=== PATIENT | female | born 1960 | race Caucasian/White ===

== ENCOUNTER 2021-03-23 01:38 | Day surgery (SDC) | payer BC, SELFPAY ==
[2021-03-13 13:52] VITALS: BMI 49.6
[2021-03-23 08:20] VITALS: BP 127/69; PULSE 107; RESP 22; TEMP 36.3; O2SAT 100; BMI 49.0
--- NOTE | 2021-03-23 08:22 | WPDANESEPPF ---
Anes - Initial Pre Proc Eval Procedure: Operation Date: 03/23/21 09:00 Proposed Procedures p Colonoscopy - Tre Alvarado MD Date/Time: 03/23/21 08:22 Surgeon: Tre Alvarado MD Pre Op Diagnosis: Iron Deficiency Anemia Patient Data Age: 60 Gender: F Height: 1.63 m Weight: 131 kg Allergies Allergy/AdvReac Type Severity Reaction Status Date / Time shellfish derived Allergy Severe Swelling Verified 03/23/21 08:18 of Lip/Tongue/Throat Penicillins Allergy Intermediate Hives Verified 03/23/21 08:18 SHELL FISH Allergy Severe SWELLING, Uncoded 03/23/21 08:18 RASH Shrimp Allergy Severe SWELLING, Uncoded 03/23/21 08:18 RASH Contrast Media Allergy Intermediate Rash Uncoded 03/23/21 08:18 Home Medications Medication Instructions Recorded Confirmed Type amitriptyline 100 mg tablet 200 mg PO QHS tablet 03/07/21 03/23/21 History lurasidone 40 mg tablet 40 mg PO QHS tablet 03/07/21 03/23/21 History metoprolol succinate 25 mg 25 mg PO BID 03/07/21 03/23/21 History tablet,extended release 24 hr pramipexole 0.75 mg tablet 0.75 mg PO QHS 03/07/21 03/23/21 History tramadol 50 mg tablet 50 mg PO Q6H PRN 03/07/21 03/23/21 History ferrous sulfate [FeroSul] 1 mg PO BID 03/13/21 03/23/21 History Patient hx anesthesia problems: none Family hx anesthesia problems: none PMFSH Past Medical History Medical History (Updated 03/23/21 @ 08:23 by Timmy Engle MD) Anemia Anxiety Arthritis Bipolar 1 disorder, depressed Morbid obesity Family History Family History Father Family history of Alzheimer's disease Other Family history of Parkinson's disease Family history of arthritis Family history of malignant neoplasm Family history of mental disorder Social History Social History Smoking packs per day: 0.5 Smoking cigarettes per day: 10.0 Years smoked: 13 Smoking pack-years: 6.50 Smoking status: Former smoker Tobacco type: cigarettes Smoking end date: 08/26/91 Alcohol intake: current Substance use: never Substance use type: does not use Spiritual care concerns: No Anes - Eval Final PreProcedure Day of Procedure 03/23/21 08:22 Patient weight: morbidly obese Heart: regular rate and rhythm Lungs: clear to auscultation Airway: Mallampati scale class III Neurological: alert and oriented Last oral intake: >/= 8 hours ASA classification: III Emergent: no Anesthetic plan: proceed Anesthesia type and monitoring: general GIVS and standard monitoring Informed Consent: The patient's anesthetic plan and its attendant risks and benefits were discussed with the patient/family/POA. Questions were solicited and answers provided to the satisfaction of the patient/family/POA.
[2021-03-23] MEDS: LACTATED RINGERS 1,000 ML 30 ML IV CONT (08:26)
[2021-03-23 10:09] VITALS: BP 83/54; PULSE 79; RESP 16; O2SAT 99
[2021-03-23 10:19] VITALS: BP 96/49; PULSE 78; RESP 17; O2SAT 100
[2021-03-23 10:29] VITALS: BP 111/55; PULSE 76; RESP 18; O2SAT 100
--- NOTE | 2021-03-23 10:34 | PM.HPGS ---
History of Present Illness History of Present Illness Consent: Risks, benefits, and alternatives have been discussed and questions answered. Patient agrees to proceed with procedure. Chief complaint: Iron Deficiency Anemia Narrative: Macy Vera is a 60 year old female who has been found to have persistent iron deficiency anemia. She does have a history of polyps also Review of Systems Review of Systems: All systems reviewed & are unremarkable except as noted in HPI and below PMFSH Past Medical History Medical History Anemia Anxiety Arthritis Bipolar 1 disorder, depressed Morbid obesity Family History Family History Father Family history of Alzheimer's disease Other Family history of Parkinson's disease Family history of arthritis Family history of malignant neoplasm Family history of mental disorder Social History Social History Smoking packs per day: 0.5 Smoking cigarettes per day: 10.0 Years smoked: 13 Smoking pack-years: 6.50 Smoking status: Former smoker Tobacco type: cigarettes Smoking end date: 08/26/91 Alcohol intake: current Substance use: never Substance use type: does not use Spiritual care concerns: No Meds Home Medications and Allergies Home Medications Medication Instructions Recorded Confirmed Type amitriptyline 100 mg tablet 200 mg PO QHS tablet 03/07/21 03/23/21 History lurasidone 40 mg tablet 40 mg PO QHS tablet 03/07/21 03/23/21 History metoprolol succinate 25 mg 25 mg PO BID 03/07/21 03/23/21 History tablet,extended release 24 hr pramipexole 0.75 mg tablet 0.75 mg PO QHS 03/07/21 03/23/21 History tramadol 50 mg tablet 50 mg PO Q6H PRN 03/07/21 03/23/21 History ferrous sulfate [FeroSul] 1 mg PO BID 03/13/21 03/23/21 History Allergies Allergy/AdvReac Type Severity Reaction Status Date / Time shellfish derived Allergy Severe Swelling Verified 03/23/21 08:18 of Lip/Tongue/Throat Penicillins Allergy Intermediate Hives Verified 03/23/21 08:18 SHELL FISH Allergy Severe SWELLING, Uncoded 03/23/21 08:18 RASH Shrimp Allergy Severe SWELLING, Uncoded 03/23/21 08:18 RASH Contrast Media Allergy Intermediate Rash Uncoded 03/23/21 08:18 Vital Signs Vital Signs - 24 hr 03/23/21 08:20 03/23/21 10:09 03/23/21 10:19 Temperature 36.3 C L Pulse Rate 107 H 79 78 Respiratory Rate 22 H 16 17 Blood Pressure 127/69 83/54 L 96/49 L Pulse Oximetry 100 99 100 03/23/21 10:29 Temperature Pulse Rate 76 Respiratory Rate 18 Blood Pressure 111/55 L Pulse Oximetry 100 Exam Const: General: alert Orientation/consciousness: patient oriented x3 Resp: Auscultation: clear to auscultation bilaterally Cardio: Rhythm: regular rhythm GI: GI Palp: Yes Soft to palpation and No Tenderness to palpation present (GI) Neuro: General: patient oriented x3 Assessment and Plan Assessment and plan (1) Iron deficiency anemia: Code(s): D50.9 - Iron deficiency anemia, unspecified Status: Acute Assessment and Plan: Colonoscopy with possible biopsy or polypectomy or cautery or injection of substances.
== END 2021-03-23 10:37 | disposition home or self-care (01) ==
PROVIDERS: PCP Family Medicine; Visit Provider Internal Medicine Gastroenterology
PROC: 0DJD8ZZ Inspection of Lower Intestinal Tract, Via Natural or Artificial Opening Endoscopic (ICD-10-PCS; CPT 45378; principal; 2021-03-23 09:00)
DX: D50.9 Iron deficiency anemia, unspecified (principal); K57.30 Diverticulosis of large intestine without perforation or abscess without bleeding; Z86.010 Personal history of colon polyps; F41.9 Anxiety disorder, unspecified; M19.90 Unspecified osteoarthritis, unspecified site; F31.9 Bipolar disorder, unspecified; E66.01 Morbid (severe) obesity due to excess calories; Z68.42 Body mass index [BMI] 45.0-49.9, adult; Z87.891 Personal history of nicotine dependence
CPT/HCPCS: 45378; J7120

== ENCOUNTER 2021-12-04 13:28 | Outpatient (CLI) | payer BC, SELFPAY ==
--- NOTE | 2021-12-04 13:30 | ECG_ITS ---
Measurements Intervals [place] Rate: 90 P: 43 WA: 156 QRS: -3 QRSD: 97 T: 38 QT: 362 QTc: 443 Interpretive Statements SINUS RHYTHM NONSPECIFIC ST AND T CHANGES NO PREVIOUS ECG AVAILABLE FOR COMPARISON Electronically Signed On 12-04-2021 15:47:02 CDT by Chapin Laboy M.D.
== END 2021-12-04 13:29 | disposition home or self-care (01) ==
LOC: ANHSURGERY 13:30
PROVIDERS: PCP Family Medicine; Visit Provider Orthopaedic Surgery
DX: Z86.79 Personal history of other diseases of the circulatory system (principal); Z01.818 Encounter for other preprocedural examination
CPT/HCPCS: 93005

== ENCOUNTER 2021-12-07 01:24 | Day surgery (SDC) | payer BC, SELFPAY ==
--- NOTE | 2021-12-04 10:59 | PC.NURSE ---
Report to the Outpatient Waiting Room, entrance under the green pavilion located off [facility], at time _0800 on date _12/07/21 . OR Time: _1000 . - You and your visitor will be asked a series of questions to screen for COVID 19 for your protection. - A mask is required within the hospital. Preoperative COVID Testing Requirements: No COVID Test needed if: (proof is required; if not received patient will have Rapid Test prior to entry) - Patient has received COVID Vaccine at least 14 days prior to procedure date or - Patient has positive COVID test result within last 90 days of surgery date. COVID Test needed if above criteria is not met If not COVID vaccinated a COVID test must be conducted within 72 hours of surgery and patient is asked to isolate self from time of testing until procedure. You will go to the [facility] for your COVID testing. The [employer] [facility] site is located at the corner of [address] [facility]. You will only be called if COVID results are positive and your surgeon may reschedule your elective surgery date. Patients may have clear liquids (water, carbonated beverages, clear teas, apple juice) until 3 hours prior to surgery with a maximum of 20 ounces. - No food from midnight until time of surgery - Infants may have breast milk until 4 hours before surgery, infant formula 6 hours prior to surgery. - Children will be allowed to drink immediately following surgery. If applicable, please bring a bottle or sippy cup to assist with drinking. Juice, water, soda, and popsicles are readily available. For infants on formula, please bring formula the day of surgery. Pacifiers are allowed. Take the following medications with a SIP of water the morning of surgery: _METOPROLOL Medications to discontinue per physician NONE Date to take last dose Please no make-up, nail citizen of the [place], hairspray, perfume, deodorant, or body powder the day of surgery. No jewelry (including any body piercings) or valuables the day of surgery, leave them at home. Please take a shower or bath the night before, or the morning of, surgery with an antibacterial soap. Wear comfortable, loose fitting clothing. Children are encouraged to wear pajamas. - Jewelry must be removed prior to entering the operating room. Rings and piercings that are not removed may be cut off. - The hospital will not accept responsibility for valuables. - Please leave all valuables, including medications, at home the day of surgery. If you are going home after surgery, a licensed local bulk driver must drive you home. - NO public transportation without another adult. - We recommend that an adult stay with you for 24 hours following discharge. - We also recommend that you do not drive, make important decision, drink alcoholic beverages, or take any drugs that were not prescribed by your health care provider for at least 24 hours after your discharge time. For Pediatric surgeries, we recommend two adults accompany the child home (only one inside the building at this time). One visitor will be allowed to accompany the patient into the hospital. Patients visitor will be instructed to remain with patient at all times or leave the building. We will allow the visitor to come back to the postoperative area when patient is ready. Follow any additional instructions given to you from your surgeon. Telephone instructions given to _PATIENT and asked if any additional questions and then verbalized understanding. Patient advised to call surgeon office or pre surgery nurse liaison [phone] if any additional questions.
[2021-12-04 11:05] VITALS: BMI 49.4
--- NOTE | 2021-12-06 14:32 | WPDANESEPPF ---
Anes - Initial Pre Proc Eval Procedure: Operation Date: 12/07/21 10:00 Proposed Procedures p Left Second, Third, Fourth Hammer Toe Correction - Jared Roque MD Date/Time: 12/06/21 14:32 Surgeon: Jared Roque MD Pre Op Diagnosis: left 2nd,3rd,4th hammer toes Patient Data Age: 60 Gender: F Height: 1.63 m Weight: 130.65 kg Allergies Allergy/AdvReac Type Severity Reaction Status Date / Time shellfish derived Allergy Severe Swelling Verified 12/07/21 07:59 of Lip/Tongue/Throat Penicillins Allergy Intermediate Hives Verified 12/07/21 07:59 Sulfa (Sulfonamide Allergy Unknown Rash Verified 12/07/21 07:59 Antibiotics) Shrimp Allergy Severe SWELLING, Uncoded 12/07/21 07:59 RASH Contrast Media Allergy Intermediate Rash Uncoded 12/07/21 07:59 Home Medications Medication Instructions Recorded Confirmed Type amitriptyline 100 mg tablet 200 mg PO QHS tablet 03/07/21 12/07/21 History lurasidone 40 mg tablet 40 mg PO QHS tablet 03/07/21 12/07/21 History metoprolol succinate 25 mg 25 mg PO BID 03/07/21 12/07/21 History tablet,extended release 24 hr pramipexole 0.75 mg tablet 0.75 mg PO QHS 03/07/21 12/07/21 History tramadol 50 mg tablet 50 mg PO Q6H PRN 03/07/21 12/07/21 History folic acid 1 mg PO DAILY 12/04/21 12/07/21 History Patient hx anesthesia problems: none Family hx anesthesia problems: none Results Review: All pre-operative results and documents have been reviewed as part of the pre-operative evaluation. [facility] Past Medical History Medical History (Updated 12/06/21 @ 14:33 by Hermes Carlos DO) Acquired hammertoe of left foot Anemia Anxiety Arthritis Bipolar 1 disorder, depressed Depression Hx of supraventricular tachycardia Morbid obesity PONV (postoperative nausea and vomiting) Wears glasses Surgical History Surgical History (Updated 12/06/21 @ 14:33 by Hermes Carlos DO) H/O foot surgery Left 2nd hammertoe correction 06/23/15 Dr. Roque H/O hernia repair umbilical hernia repair History of cholecystectomy History of gastric bypass History of hip surgery Left TAISHA 2018 Dr. Escoto History of intestinal surgery bowel obstruction x2 History of knee surgery Right TKA 2019 Dr. Escoto Left TKA Poly replacement 2020 Dr. Escoto Family History Family History (Updated 11/17/21 @ 14:30 by Evelyn Palmer) Father Family history of Alzheimer's disease Other Cerebrovascular accident Depression Family history of Parkinson's disease Family history of arthritis Family history of malignant neoplasm Family history of mental disorder Gallbladder cancer Social History Social History (Updated 11/17/21 @ 14:35 by Evelyn Palmer) Smoking packs per day: 0.5 Smoking cigarettes per day: 10.0 Years smoked: 13 Smoking pack-years: 6.50 Smoking status: Former smoker Tobacco type: cigarettes Smoking end date: 08/26/92 Alcohol intake: current Substance use: never Substance use type: does not use Living arrangements: with family Gender identity (if verbalized by the patient): Female Spiritual care concerns: No Anes - Eval Final PreProcedure Day of Procedure 12/06/21 14:32 Patient weight: morbidly obese Heart: regular rate and rhythm Lungs: clear to auscultation and normal air movement Airway: Mallampati scale class III Neurological: alert and oriented Last oral intake: >/= 8 hours ASA classification: III Emergent: no Anesthetic plan: proceed Anesthesia type and monitoring: general LMA and standard monitoring Results Review: All pre-operative results and documents have been reviewed as part of the pre-operative evaluation. Informed Consent: The patient's anesthetic plan and its attendant risks and benefits were discussed with the patient/family/POA. Questions were solicited and answers provided to the satisfaction of the patient/family/POA.
--- NOTE | ~2021-12-07 | XR_ITS ---
EXAMINATION: XR surgery orthopedic EXAM DATE: 12/07/2021 10:57 INDICATION: Left foot hammertoe correction. TECHNIQUE: Fluoroscopy used during left foot surgery performed by Dr. Jared Roque MD. Radiolo gist was not present for the imaging or procedure. Total fluoroscopic time of 16 seconds. The DAP f or this procedure was 1.3 mGym2. A total of 4 images sent to PACS from the exam. FINDINGS: Orthopedic surgical pins extending along the shafts of the left 2nd, 3rd, 4th phalanges. Correlate with procedure note. IMPRESSION: Fluoroscopy used during hammertoe correction. Reviewed, dictated and finalized at location B.
--- NOTE | 2021-12-07 07:20 | WPDHPUPDATE1 ---
History and Physical Update Update Date/Time: 12/07/21 07:20 History and Physical has been reviewed, including an updated exam of the patient. There are NO changes in the patient's condition. Risks, benefits, and alternatives have been discussed and questions answered. Patient agrees to proceed with procedure.
[2021-12-07 08:03] VITALS: BP 141/83; PULSE 93; RESP 18; TEMP 36.4; O2SAT 100
[2021-12-07] MEDS: LACTATED RINGERS 1,000 ML 30 ML IV CONT ×2 (08:10→11:06)
[2021-12-07] MEDS: ACETAMINOPHEN 500 MG TABLET 1000 MG PO (08:19)
[2021-12-07] MEDS: KETOROLAC 15 MG/ML VIAL (*BKC) IV PUSH (08:22)
[2021-12-07] MEDS: ceFAZolin 3 GM/D5W 100 ML 100 ML IVPB (09:52)
[2021-12-07] MEDS: BUPIVACAINE HCL 0.5% PF 30 ML VIAL INFILTRATE (10:14)
[2021-12-07 11:05] VITALS: BP 111/78; PULSE 89; RESP 15; O2SAT 95
--- NOTE | 2021-12-07 11:13 | W.PM.PROC2 ---
Procedure Note - Detailed Date of Procedure 12/07/21 Pre-op Diagnosis left 2nd,3rd,4th hammer toes Post-op Diagnosis Same Procedure Performed Left 2nd, 3rd, 4th hammertoe correction with interphalangeal arthrodesis Surgeon Jared Roque MD Community Affairs Director 1st facility assistant Anesthesia General Indications 60-year-old woman with left foot 2nd, 3rd and 4th toe deformity. This causes pressure on the dorsum of the toe and rubbing with shoe wear. Patient is at a pre ulcerative state and risk of infection. She has failed conservative treatment taping and padding and accommodative shoes. Presents for operative treatment. Description of Procedure Patient identified in the preoperative holding. Informed consent given. Operative extremity marked. Patient received intravenous antibiotics. Patient brought to the operating room where underwent general anesthetic by anesthesia team. Positioned supine on operating room table. Time-out performed confirming the patient, site of the surgery and the plan. Left foot prepped draped usual sterile surgical fashion using a ChloraPrep skin solution. Foot and Ankle exsanguinated and calf tourniquet inflated to 225 mmHg. Second toe elliptical incision made with a 15 blade knife the distal interphalangeal joint. Dorsal capsulotomy performed. Ligaments released and the bone resected with a bone cutter rongeur. Irrigation followed by reduction and fixation with 0.062 in K-wire. Image intensification confirmed alignment. Third toe elliptical incision made with a 15 blade knife over the proximal interphalangeal joint. Dorsal capsulotomy performed. Ligaments released and the bone resected with a bone cutter and rongeur. Irrigation followed by reduction and fixation with 0.062 in K-wire. Image intensification confirmed alignment. Fourth toe elliptical incision made with a 15 blade knife over the proximal interphalangeal joint. Dorsal capsulotomy performed. Ligaments released and the bone resected with a bone cutter and rongeur. Irrigation followed by reduction and fixation with 0.062 in K-wire. Image intensification confirmed alignment. Local anesthetic with 0.5% Marcaine plain. Sterile dressing applied. The patient was then woken from anesthesia, extubated and taken to the recovery room in stable condition. All sponge, needle, instrument counts were correct at the end of the case. Implants 0.062 in K-wire x3 Estimated Blood Loss 5 Tourniquet Time 52 Drains No Packing No Pathology None sent Complications None Condition Stable Disposition PACU
[2021-12-07 11:20] VITALS: BP 114/82; PULSE 94; RESP 17; O2SAT 100
[2021-12-07 11:38] VITALS: BP 115/80; PULSE 90; RESP 17; O2SAT 100
[2021-12-07 11:40] VITALS: BP 123/75; PULSE 94; RESP 17
[2021-12-07 12:10] VITALS: BP 129/79; PULSE 90; RESP 16
--- NOTE | 2021-12-07 12:50 | SUR.PHASEII ---
pt meets discharge instructions and is waiting for a post op boot. the some that came was too small and I called back for a bigger one
== END 2021-12-07 13:19 | disposition home or self-care (01) ==
PROVIDERS: PCP Family Medicine; Visit Provider Orthopaedic Surgery
PROC: (CPT 28285; principal; 2021-12-07 10:00)
DX: M20.42 Other hammer toe(s) (acquired), left foot (principal); F31.9 Bipolar disorder, unspecified; F41.9 Anxiety disorder, unspecified; E66.01 Morbid (severe) obesity due to excess calories; Z68.43 Body mass index [BMI] 50.0-59.9, adult; Z98.84 Bariatric surgery status; Z87.891 Personal history of nicotine dependence
CPT/HCPCS: 28285 ×3; A9270; C1713; J0330; J0690; J1100; J1885; J2250; J2405; J2704; J3010; J7120

== ENCOUNTER 2024-11-18 08:15 | Outpatient (CLI) | payer BC, SELFPAY ==
--- NOTE | 2024-11-18 08:23 | ECG_ITS ---
Test Date: 2024-11-18 08:31:51 Measurements Intervals [place] Rate: 83 P: 39 VA: 168 QRS: -10 QRSD: 104 T: 13 QT: 386 QTc: 454 Interpretive Statements SINUS RHYTHM NONSPECIFIC ST AND T WAVE ABNORMALITY No previous ECG available for comparison Electronically Signed On 11-18-2024 12:59:27 CDT by Claribel Davis M.D.
--- OUTSIDE RECORDS SUMMARY | 2024-11-18 08:27 | XMS_ITS | Encounter Summary ---
Author Organization [facility] Care Team Providers Care Postal Transportation Clerk Name Role Phone Williams Escoto MD Primary Care Provider Williams Escoto MD Primary Care Provider Kaushik Montemayor MD Primary Care Provider [phone] Vance Jack MD Unavailable [phone] Geeta Aparicio Unavailable [phone] Encounter Details Date Type Department Care Team (Latest Contact Info) Description 11/21/2017 Orders Only [facility] Provider, MD Florentin [address] [place] [id number] Social History Tobacco Use Types Packs/Day Years Used Date Smoking Tobacco: Never Assessed Comments Unknown Sex and Gender Information Value Date Recorded Sex Assigned at Not on file Legal 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 us Historical Provider Final Res ult documented in this encounter Visit Diagnoses Not on filedocumented in this encounter Care Teams Postal Transportation Clerk Relationship Specialty Start Date End Date Williams Escoto MD PCP - General 10/27/18 12/22/18 Williams Escoto MD PCP - General 10/03/18 10/26/18 [place] [id number] [place] [address] [id number] PCP - General Family Practice 12/23/18 [place] [id number] [phone] Referring Physician Internal Medicine 04/02/22 [place] [id number] [employer] [address] [place] [address] [id number] Physician Wedding Cake Designer Orthopedic Surgery 04/20/22 documented as of this encounter
--- OUTSIDE RECORDS SUMMARY | 2024-11-18 08:27 | XMS_ITS | Clinical Summary ---
Author Organization [facility] at the Medical Office Building Address [address] [place] [address] Care Team Providers Care Receiver Name Role Phone Kaushik Montemayor MD Primary Care Provider [phone] Vance Jack MD Unavailable [phone] Geeta Aparicio Unavailable [phone] Allergies Active Allergy Reactions Criticality Noted Date Comments Iodinated Contrast Media Hives,Rash Medium 12/18/2018 Rash Iodine Unknown,Hives,Rash Medium 12/18/2018 IVP dye Penicillins Rash Medium 08/23/2015 Rash Shellfish Hives,Rash High 08/23/2015 Shellfish Containing Products Hives Medium 2014 Sulfa (Sulfonamide Antibiotics) Rash High / Medications amitriptyline (ELAVIL) 100 mg tablet Take 2 tablets (200 mg total) by mouth nightly 0 11/19/19 19 Active LATUDA 40 mg tablet Take 1 tablet (40 mg total) by mouth nightly 0 10/01/19 19 Active metoprolol (LOPRESSOR) 25 mg tablet Take 1 tablet (25 mg total) by mouth 2 (two) times a day 0 12/06/19 19 Active pramipexole (MIRAPEX) 0.75 mg tablet Take 1 tablet (0.75 mg total) by mouth nightly 0 09/19/19 19 Active BD LUER-YVETTE SYRINGE 3 mL 23 x 1 syringe USE TO INJECT B12 DIRECTED BY THE PHYSICIAN. 0 10/09/19 19 Active folic acid (FOLVITE) 1 mg tablet Take 1 tablet (1 mg total) by mouth daily 07/16/20 21 Active cyanocobalamin (Vitamin B-12) 1,000 mcg/mL injection 07/24/20 21 Active ferrous sulfate 325 mg (65 mg of elemental iron) tabletIndications: Iron Deficiency Anemia Take 1 tablet (325 mg total) by mouth 2 (two) times a day Active UNABLE TO FIND Take 1 each by mouth daily PREVAGEN CHEWABLES Active apixaban (ELIQUIS) 2.5 mg tabletIndications: VTE Prophylaxis Take 1 tablet (2.5 mg total) by mouth 2 (two) times a day for 14 days 28 tablet 04/20/20 22 Active HYDROcodone-acetam inophen (NORCO) 5-325 mg per tabletIndications: Pain Take 1-2 tablets by mouth every 4 (four) hours as needed for pain 40 tablet 04/20/20 22 Active Additional Information Patient not taking.Reported on 02/08/2023 ALPRAZolam (XANAX) 0.25 mg tablet 04/12/20 22 Active cephalexin (KEFLEX) 500 mg capsule 03/02/20 22 Active ciprofloxacin (CIPRO) 500 mg tablet 04/12/20 22 Active ondansetron ODT (ZOFRAN-ODT) 8 mg disintegrating tablet DISSOLVE 1 TABLET ON THE TONGUE EVERY 8 HOURS NEEDED FOR NAUSEA OR VOMITING 12/08/19 22 Active Active Problems Problem Noted Date Diagnosed Date S/P total right hip arthroplasty 04/19/2022 Primary osteoarthritis of right hip 04/02/2022 Overview (04/02/2022): Added automatically from request for surgery [id number] Rotator cuff impingement syndrome of right shoul jack 05/15/2021 Trochanteric bursitis of right hip 08/08/2020 Presence of right artificial knee joint 08/08/20 Status post total left knee replacement 08/13/20 19 Surgical History Surgery Date Site/Laterality Comments ABCESS DRAINAGE 10/24/2013 - 11/23/2013 Left Left hip I&D TOTAL KNEE ARTHROPLASTY Bilateral and revision to left TOTAL HIP ARTHROPLASTY Left FINGER SURGERY Left EXC. STM left long finger SECTION x 2 FOOT SURGERY Left hammertoe 2021 GANGLION CYST EXCISION Left x 2 CARPAL TUNNEL RELEASE Left HERNIA REPAIR 2014 w/mesh ABDOMINAL SURGERY bowel obst surgery x 3 GASTRIC BYPASS 2005 TOTAL HIP ARTHROPLASTY 04/19/2022 Right Medical History Medical History Date Comments Depression Hypertension Arthritis Osteoarthritis Obesity MORBID PONV (postoperative nausea and vomiting) No family history of adverse response to anesthesia History of anemia Personal history of other me dical treatment history iron transfusions; h istory of several blood transfusions Bipolar disorder (HCC) RLS (restless legs syndrome) Wears contact lenses Wears glasses History of shingles multiple estrella es; last episode 2018 Family History Medical History Relation Name Comments No Known Problems Father No Known Problems Mother Depression Neg Hx Hypertension Neg Hx Relation Name Status Comments Father Mother Social History Tobacco Use Types Packs/Day Years Used Date Smoking Tobacco: Former Cigarettes 0.5 13 1 9 - 1991 Smokeless Tobacco: Never Alcohol Use Standard Drinks/Week Comments Yes 0 (1 standard drink = 0.6 oz pur e alcohol) Socially Social Connection and Isolat ion Panel [NHANES] Answer Date Recorded In a typical week, how many times do you talk on the phone with family, friends, or neighbors? More than three times a week 04/20/2022 How often do you get togethe r with friends or relatives? More than three times a week 04/20/2022 How often do you attend chur ch or orthodox services? Never 04/20/2022 Do you belong to any clubs o r organizations such as presybeterian groups, unions, fraternal or athletic groups, or school groups? No 04/20/2022 How often do you attend meet ings of the clubs or organizations you belong to? Never 04/20/2022 Are you , , di vorced, , never , or living with a partner? 04/20/2022 AUDIT-C Answer Date Recorded Q1: How often do you have a drink containing alc ohol? Monthly or less 04/05/2022 Q2: How many drinks containi ng alcohol do you have on a typical day when you are drinking? 1 or 2 04/05/2022 Q3: How often do you have si x or more drinks on one occasion? Never 04/05/2022 Overall Financial Resource Strain (CARDIA) Answe r Date Recorded How hard is it for you to pa y for the very basics like food, housing, medical care, and heating? Not hard at all 04/20/2022 PRAPARE - Transportation Answer Date Re corded In the past 12 months, has l ack of transportation kept you from medical appointments or from getting medications? No 03/27 In the past 12 months, has l ack of transportation kept you from meetings, work, or from getting things needed for daily living? 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 Gender Identity Not on file Sexual Orientation Not on file Occupation Industry Job Start Date Job End Date Retired Not on file Not on file Not on file Obstetrics History Last Filed Vital Signs Vital Sign Reading Time Taken Comments Blood Pressure 102/68 04/21/2022 7:00 AM CDT Pulse 98 04/21/2022 7:00 AM CDT Temperature 36.6 C (97.8 F) 04/21/2022 7:00 AM CDT Respiratory Rate 16 04/21/2022 7:00 AM CDT Oxygen Saturation 98% 04/21/2022 7:00 AM CDT Inhaled Oxygen Concentration - - Weight 124.7 kg (275 lb) 02/08/2023 10:18 AM CDT Height 165.1 cm (5' 5 ) 02/08/2023 10:18 AM CDT Body Mass Index 45.76 02/08/2023 10:18 AM CDT Plan of Treatment Health Maintenance Due Date Last Done Comments Breast Cancer Screening-Mammogram 1961 Cervical Cancer Screening 1961 Colon Cancer Screening-Colonoscopy 1961 Depression Screening 1961 Hepatitis C Screening 1961 Hepatitis B Screening 12/20/1979 Regular Well Visit/Exam 18-64 12/20/1979 Zoster Vaccine (1 of 2) 12/20/2011 Covid-19 Vaccine ( season) 2024 06/21/2021, 10/27/2020, 09/29/2020 Influenza Vaccine (#1) 2024 , 06/05/2021, 05/26/2019, Additional history exists DTaP/Tdap/Td Vaccine (2 - Td or Tdap) 06/15/2032 06/15/2022 Pneumococcal vaccine <65 Aged Out No longer eligible based on patient's age to complete this topic Medical Devices Implanted Type Area Office Supervisor Device Identifier Shelf Expiration Date Model / Serial / Lot Knee Components Bilater al: Knee Hip Left: Hip [employer] G7 52mm Limit Hole Hip E Hemisphere Shell Acetabular Pps [id number] - [id number] Implanted:Qty: 1 on 04/19/2022 by Williams Escoto MD at [facility] Right: Hip [employer] [id number] 02/22/2032 [id number] / / [id number] [employer] Trilogy 6.5mm 30mm Self Tap Acetabular Cortical Screw Bone [id number] - [id number] Implanted:Qty: 1 on 04/19/2022 by Williams Escoto MD at [facility] Right: Hip [employer] [id number] 03/15/2032 [id number] / / [id number] [employer] Echo Bi-Metric 9mm 125mm Noncollar Reduce Proximal Profile Press [id number] - [id number] Implanted:Qty: 1 on 04/19/2022 by Williams Escoto MD at [facility] Right: Hip [employer] [id number] 08/03/2029 [id number] / / [id number] [employer] Liner Hip G7 Longevity High Wall 32mm E [id number] - [id number] Implanted:Qty: 1 on 04/19/2022 by Williams Escoto MD at [facility] Right: Hip [employer] [id number] 07/25/[id number] / / [id number] [employer] G7 32mm Type 1 Modular Hip Acetabular +3mm Offset Head Femoral 650-1161 - [id number] Implanted:Qty: 1 on 04/19/2022 by Williams Escoto MD at [facility] Right: Hip [employer] 06/08/2031 [id number] / / [id number] [place] Sub[place] Plan / Payer (Ef fective 2019-Present) Name:Carmen Cobosuermey Bernal Relation to Subscriber:Spouse Name:RIANNA COBOS Date of :1967 (Home) Address: [place] [address] Payer ID:[id number] (NAIC) Group ID:[id number] Type:[id number] OTHER Address: [address] [place] [id number] Advance Directives For more information, please contact: [phone] * Full Code (Latest Code Status on File) Date Activated Date Inactivated Comments 04/19/2022 4:00 PM 04/21/2022 4:29 PM Care Teams Receiver Relationship Specialty Start [place] [address] [place] [address] PCP - General Family Practice 12/23/18 [place] [address] [facility] [address] [place] [address] Referring Physician Internal Medicine 04/02/22 [place] [address] [address] [address] Physician Environmental Studies Department Chair Orthopedic Surgery 04/20/22
--- OUTSIDE RECORDS SUMMARY | 2024-11-18 08:27 | XMS_ITS | Referral Summary ---
Author Organization [facility] at the Medical Office Building Address [address] [place] [address] Care Team Providers Care Web Design Instructor Name Role Phone Kaushik Montemayor MD Primary Care Provider [phone] Vance Jack MD Unavailable [phone] Geeta Aparicio Unavailable [phone] Allergies Active Allergy Reactions Criticality Noted Date [...] (04/02/2022): Added automatically from request for surgery [id number] Rotator cuff impingement syndrome of right shoul jack 05/15/2021 Trochanteric bursitis of right hip 08/08/2020 Presence of right artificial knee joint 08/08/20 Status post total left knee replacement 08/13/20 19 Social History Tobacco Use Types Packs/Day Years [...] often do you attend chur ch or sabianism services? 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 Gender Identity Not on file Sexual Orientation Not on file Occupation Industry Job Start Date Job End Date Retired Not on file Not on file Not on file Last Filed Vital Signs Vital Sign Reading [...] 02/08/2023 10:18 AM CDT Plan of Treatment Not on file Medical Devices Implanted Type Area Printing Sales Representative Device Identifier Shelf Expiration Date Model / Serial / Lot Knee Components Bilater al: Knee Hip Left: Hip [employer] G7 52mm Limit Hole Hip E Hemisphere Shell Acetabular Pps [id number] - [id number] Implanted:Qty: 1 on 04/19/2022 by Williams Escoto MD at [facility] Right: Hip [employer] [id number] 02/22/2032 [id number] / / [id number] [employer] Trilogy 6.5mm 30mm Self Tap Acetabular Cortical Screw Bone [id number] - [id number] Implanted:Qty: 1 on 04/19/2022 by Williams Escoto MD at [facility] Right: Hip [employer] [id number] 03/15/2032 [id number] / / [id number] [employer] Echo Bi-Metric 9mm 125mm Noncollar Reduce Proximal Profile Press [id number] - [id number] Implanted:Qty: 1 on 04/19/2022 by Williams Escoto MD at [facility] Right: Hip [employer] [id number] 08/03/2029 [id number] / / [id number] [employer] Liner Hip G7 Longevity High Wall 32mm E [id number] - [id number] Implanted:Qty: 1 on 04/19/2022 by Williams Escoto MD at [facility] Right: Hip [employer] [id number] 07/25/[id number] / / [id number] [employer] G7 32mm Type 1 Modular Hip Acetabular +3mm Offset Head Femoral 650-1161 - [id number] Implanted:Qty: 1 on 04/19/2022 by Williams Escoto MD at [facility] Right: Hip [employer] 06/08/2031 [id number] / / [id number] [place] [employer] [place] [employer] [place] Advance Directives For more information, please contact: [phone] * Full Code (Latest Code Status on File) Date Activated Date Inactivated Comments 04/19/2022 4:00 PM 04/21/2022 4:29 PM Care Teams Web Design Instructor Relationship Specialty Start [place] [address] [address] PCP - General Family Practice 12/23/18 [place] [address] [address] Referring Physician Internal Medicine 04/02/22 [place] [address] [facility] [address] [address] Physician Datapower Consultant Orthopedic Surgery 04/20/22
--- OUTSIDE RECORDS SUMMARY | 2024-11-18 08:27 | XMS_ITS | Encounter Summary ---
Author Organization [facility] Facility Care Team Providers Care Interline Clerk Name Role Phone Williams Escoto MD Primary Care Provider Williams Escoto MD Primary Care Provider Kaushik Montemayor MD Primary Care Provider [phone]- [phone] Vance Jack MD Unavailable [phone] Geeta Aparicio Unavailable [phone] Encounter Details Date Type Department Care Team (Latest Contact Info) Description 10/10/2016 Orders Only [facility] CLINCONV Provider, MD Florentin [address] [place] [address] Social History Tobacco Use Types Packs/Day Years Used Date Smoking Tobacco: Never Assessed Comments Unknown Sex and Gender Information Value Date Recorded Sex Assigned at Not on file Legal Sex Female 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 us Historical Provider Final Res ult documented in this encounter Visit Diagnoses Not on filedocumented in this encounter Care Teams Interline Clerk Relationship Specialty Start Date End Date Williams Escoto MD PCP - General 10/27/18 12/22/18 Williams Escoto MD PCP - General 10/03/18 10/26/18 [place] [address] [employer] [address] [phone] PCP - General Family Practice 12/23/18 [place] [address] [employer] [address] [phone] Referring Physician Internal Medicine 04/02/22 [place] [address] [employer] [address] [id number] Physician Build Engineer Orthopedic Surgery 04/20/22 documented as of this encounter
--- OUTSIDE RECORDS SUMMARY | 2024-11-18 08:27 | XMS_ITS | Encounter Summary ---
Author Organization [facility] Facility Care Team Providers Care Heavy Line Technician Name Role Phone Williams Escoto MD Primary Care Provider Williams Escoto MD Primary Care Provider Kaushik Montemayor MD Primary Care Provider [phone]- [phone] Vance Jack MD Unavailable [phone] Geeta Aparicio Unavailable [phone] Encounter Details Date Type Department Care Team (Latest Contact Info) Description 10/01/2018 Orders Only [facility] CLINCONV Provider, MD Florentin [address] [place] [address] Social History Tobacco Use Types Packs/Day Years Used Date Smoking Tobacco: Never Assessed Comments Unknown Sex and Gender Information Value Date Recorded Sex Assigned at Not on file Legal 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 us Historical Provider Final Res ult documented in this encounter Visit Diagnoses Not on filedocumented in this encounter Care Teams Heavy Line Technician Relationship Specialty Start Date End Date Williams Escoto MD PCP - General 10/27/18 12/22/18 Williams Escoto MD PCP - General 10/03/18 10/26/18 [place] [address] [phone] PCP - General Family Practice 12/23/18 [place] [address] [id number] Referring Physician Internal Medicine 04/02/22 [place] [address] [phone] Physician Ocular Pathologist Orthopedic Surgery 04/20/22 documented as of this encounter
--- OUTSIDE RECORDS SUMMARY | 2024-11-18 08:27 | XMS_ITS | Encounter Summary ---
Author Organization [facility] Facility Care Team Providers Care Battery Tester Name Role Phone Williams Escoto MD Primary Care Provider Williams Escoto MD Primary Care Provider Kaushik Montemayor MD Primary Care Provider [phone]- [phone] Vance Jack MD Unavailable [phone] Geeta Aparicio Unavailable [phone] Encounter Details Date Type Department Care Team (Latest Contact Info) Description 11/07/2017 Orders Only [facility] CLINCONV Provider, MD Florentin [address] [place] [address] Social History Tobacco Use Types Packs/Day Years Used Date Smoking Tobacco: Never Assessed Comments Unknown Sex and Gender Information Value Date Recorded Sex Assigned at Not on file Legal Sex Female 10:29 AM CHECK PROCESSING CLERK Gender Identity Not on file Sexual Orientation Not on file documented as of this encounter Plan of Treatment Not on file documented as of this encounter Procedures Procedure Name Priority Date/Time Associated Diagnosis Comments PROCEDURE - RESULT 11/07/2017 12 :00 AM CDT documented in this encounter Results * PROCEDURE - RESULT (11/07/2017 12:00 AM CDT) Narrative 11/07/2017 12:00 AM CDT Ordered by an unspecified provider. us Historical Provider Final Res ult documented in this encounter Visit Diagnoses Not on filedocumented in this encounter Care Teams Battery Tester Relationship Specialty Start Date End Date Williams Escoto MD PCP - General 10/27/18 12/22/18 Williams Escoto MD PCP - General 10/03/18 10/26/18 [place] [address] [place] [id number] PCP - General Family Practice 12/23/18 [place] [address] [phone] Referring Physician Internal Medicine 04/02/22 [place] [address] [employer] [address] [place] [id number] Physician Molybdenum Steamer Operator Orthopedic Surgery 04/20/22 documented as of this encounter
--- OUTSIDE RECORDS SUMMARY | 2024-11-18 08:27 | XMS_ITS | Encounter Summary ---
Author Organization [facility] Address [address] [place] [address] Phone Care Team Providers Care Prosthetics Assistant Name Role Phone Kaushik Montemayor MD Primary Care Provider [phone] Barrett Tello MD Unavailable [phone] Reason for Visit * Reason Comments Medication Refill Encounter Details Date Type Department Care Team (Late st Contact Info) Description 08/17/2023 Refill [facility] [address] [address] [place] [address] Barrett Tello MD [address] [place] [address] Medication Refill Social History Tobacco Use Types Packs/Day Years Used Date Smoking Tobacco: Former Cigarettes Q uit: 1992 Smokeless Tobacco: Never Alcohol Use Standard Drinks/Week Comments Yes 0 (1 standard drink = 0.6 oz pur e alcohol) occassionally PHQ-2 Answer Date Recorded Total Score - Questions 1-9 0 03/26 Comments Unknown Sex and Gender Information Value Date Recorded Sex Assigned at Not on file Legal Sex Female 10:46 AM CDT Gender Identity Not on file Sexual Orientation Not on file documented as of this encounter Miscellaneous Notes * Telephone Encounter - Sherron Sorensen RN - 08/20/2023 9:15 AM CST Refill request from pharmacy. Please fill if appropriate. LINE COOK documented in this encounter Plan of Treatment Upcoming Encounters Date Type Department Care Team (Late st Contact Info) Description 05/05/2025 9:00 AM CDT Office Visit [facility] [address] [phone] Barrett Tello MD [address] [place] [phone] documented as of this encounter Visit Diagnoses Diagnosis Iron deficiency anemia due to chronic blood loss Iron deficiency anemia secondary to blood loss (chronic) B12 deficiency Other B-complex deficiencies Anemia due to folic acid deficiency, unspecified deficiency type documented in this encounter Additional Health Concerns Assessment Noted Time PHQ-9 Depression Total Score: 0 06/22/20 21 9:19 AM CDT documented as of this encounter Care Teams Prosthetics Assistant Relationship Specialty Start [place] [address] [place] [address] PCP - General Family Medicine 01/17/21 [place] [address] [place] [address] Consulting Physician Oncology 01/17/21 documented as of this encounter
--- OUTSIDE RECORDS SUMMARY | 2024-11-18 08:27 | XMS_ITS | Encounter Summary ---
Author Organization [facility] Facility Care Team Providers Care Brass Wind Instrument Maker Name Role Phone Williams Escoto MD Primary Care Provider Williams Escoto MD Primary Care Provider Kaushik Montemayor MD Primary Care Provider [phone]- [phone] Vance Jack MD Unavailable [phone] Geeta Aparicio Unavailable [phone] Encounter Details Date Type Department Care Team (Latest Contact Info) Description 09/24/2018 Orders Only [facility] CLINCONV Provider, MD Florentin [address] [place] [address] Social History Tobacco Use Types Packs/Day Years Used Date Smoking Tobacco: Never Assessed Comments Unknown Sex and Gender Information Value Date Recorded Sex Assigned at Not on file Legal Sex Female 10:29 AM TEACHING ARTIST Gender Identity Not on file Sexual Orientation Not on file documented as of this encounter Plan of Treatment Not on file documented as of this encounter Procedures Procedure Name Priority Date/Time Associated Diagnosis Comments PROCEDURE - RESULT 09/24/2018 12 :00 AM TEACHING ARTIST documented in this encounter Results * PROCEDURE - RESULT (09/24/2018 12:00 AM TEACHING ARTIST) Narrative 09/24/2018 12:00 AM TEACHING ARTIST Ordered by an unspecified provider. us Historical Provider Final Res ult documented in this encounter Visit Diagnoses Not on filedocumented in this encounter Care Teams Brass Wind Instrument Maker Relationship Specialty Start Date End Date Williams Escoto MD PCP - General 10/27/18 12/22/18 Williams Escoto MD PCP - General 10/03/18 10/26/18 [place] [address] [employer] [address] [phone] PCP - General Family Practice 12/23/18 [place] [address] [address] [phone] Referring Physician Internal Medicine 04/02/22 [place] [address] [phone] Physician Wire Setter Orthopedic Surgery 04/20/22 documented as of this encounter
--- OUTSIDE RECORDS SUMMARY | 2024-11-18 08:27 | XMS_ITS | Encounter Summary ---
Author Organization [facility] Care Team Providers Care Supervisor Dairy Sanitation Name Role Phone Williams Escoto MD Primary Care Provider Williams Escoto MD Primary Care Provider Kaushik Montemayor MD Primary Care Provider +- [phone] Vance Jack MD Unavailable [phone] Geeta Aparicio Unavailable [phone] Encounter Details Date Type Department Care Team (Latest Contact Info) Description 12/16/2017 Orders Only [facility] CLINCONV Provider, MD Florentin [address] [place] [address] Social History Tobacco Use Types Packs/Day Years Used Date Smoking Tobacco: Never Assessed Comments Unknown Sex and Gender Information Value Date Recorded Sex Assigned at Not on file Legal Sex Female 10:29 AM C JAVA DEVELOPER Gender Identity Not on file Sexual Orientation Not on file documented as of this encounter Plan of Treatment Not on file documented as of this encounter Procedures Procedure Name Priority Date/Time Associated Diagnosis Comments SCAN - LABS 12/16/2017 12:00 AM CDT documented in this encounter Results * SCAN - LABS (12/16/2017 12:00 AM CDT) Narrative 12/16/2017 12:00 AM CDT Ordered by an unspecified provider. us Historical Provider Final Res ult documented in this encounter Visit Diagnoses Not on filedocumented in this encounter Care Teams Supervisor Dairy Sanitation Relationship Specialty Start Date End Date Williams Escoto MD PCP - General 10/27/18 12/22/18 Williams Escoto MD PCP - General 10/03/18 10/26/18 [place] [address] [place] [address] [phone] PCP - General Family Practice 12/23/18 [place] [address] [phone] Referring Physician Internal Medicine 04/02/22 [place] [address] [employer] [place] [address] [phone] Physician Social Science Analyst Orthopedic Surgery 04/20/22 documented as of this encounter
--- OUTSIDE RECORDS SUMMARY | 2024-11-18 08:27 | XMS_ITS | Encounter Summary ---
Author Organization [facility] Facility Care Team Providers Care Manager Scheduling Name Role Phone Williams Escoto MD Primary Care Provider Williams Escoto MD Primary Care Provider Kaushik Montemayor MD Primary Care Provider [phone]- [phone] Vance Jack MD Unavailable [phone] Geeta Aparicio Unavailable [phone] Encounter Details Date Type Department Care Team (Latest Contact Info) Description 10/25/2017 Orders Only [facility] CLINCONV Provider, MD Florentin [address] [place] [address] Social History Tobacco Use Types Packs/Day Years Used Date Smoking Tobacco: Never Assessed Comments Unknown Sex and Gender Information Value Date Recorded Sex Assigned at Not on file Legal Sex Female 10:29 AM GATE GUARD Gender Identity Not on file Sexual Orientation Not on file documented as of this encounter Plan of Treatment Not on file documented as of this encounter Procedures Procedure Name Priority Date/Time Associated Diagnosis Comments PROCEDURE - RESULT 10/25/2017 12 :00 AM GATE GUARD documented in this encounter Results * PROCEDURE - RESULT (10/25/2017 12:00 AM GATE GUARD) Narrative 10/25/2017 12:00 AM GATE GUARD Ordered by an unspecified provider. us Historical Provider Final Res ult documented in this encounter Visit Diagnoses Not on filedocumented in this encounter Care Teams Manager Scheduling Relationship Specialty Start Date End Date Williams Escoto MD PCP - General 10/27/18 12/22/18 Williams Escoto MD PCP - General 10/03/18 10/26/18 [place] [address] [phone] PCP - General Family Practice 12/23/18 [place] [address] [phone] Referring Physician Internal Medicine 04/02/22 [place] [address] [phone] Physician Specimen Preparation Assistant Orthopedic Surgery 04/20/22 documented as of this encounter
--- OUTSIDE RECORDS SUMMARY | 2024-11-18 08:27 | XMS_ITS | Clinical Summary ---
Author Organization [facility] Address [address] [address] Care Team Providers Care Decision Support Manager Name Role Phone Unavailable Primary Care Provider Unavailabl e Source Comments [facility],non-owned Affiliates and Associated Physician Practices is amultiple site organization consisting of ambulatory clinics and hospital sitesin [place], [place], [place] and [place]. This disclosure is being madepursuant to the Care Everywhere program and may not contain all information available regarding this patient. Last updated 18.[facility] [place] Social History Tobacco Use Types Packs/Day Years Used Date Smoking Tobacco: Never Assessed Sex and Gender Information Value Date Recorded Sex Assigned at Not on file Gender Identity Not on file Sexual Orientation Not on file Plan of Treatment Health Maintenance Due Date Last Done Comments COLOGUARD (AGES 45-75) - COLON CA SCREENING 1961 COLON MONITORING 1961 COLONOSCOPY - COLON CA SCREENING 1961 CT COLONOGRAPHY - COLON CA SCREENING 1961 Colorectal Cancer Screening 1961 FIT - COLON CA SCREENING 1961 FLEX SIG - COLON CA SCREENING 1961 LIPID TESTING 1961 PAP SMEAR 1961 HIV SCREENING 1976 HEPATITIS C SCREENING 12/15/1979 DTAP/TDAP/TD VACCINES (1 - Tdap) 1980 PNEUMOCOCCAL VACCINE 50+ (1 of 1 - PCV) 12/20/2011 ZOSTER VACCINE (1 of 2) 12/20/2011 COVID-19 VACCINE (4 - 2023- season) 2024 06/21/2021, 10/27/2020, 09/29/2020 INFLUENZA VACCINE (#1) 2024 , 06/15/2022, 06/05/2021, Additional history exists MAMMOGRAM 07/30/2024 07/30/2022 DEPRESSION SCREENING 08/26/2024 Respiratory Syncytial Virus (RSV) Vaccine Pt: or over 60 yrs (1 - 1-dose 75+ series) 2036 HEPATITIS B VACCINE Aged Out No longe r eligible based on patient's age to complete this topic HIB VACCINE Aged Out No longer eligi ble based on patient's age to complete this topic HPV VACCINE Aged Out No longer eligi ble based on patient's age to complete this topic MENINGOCOCCAL (Group B) VACCINE SHARED DECISION-MAKING Aged Out No longer eligible based on patient's age to complete this topic MENINGOCOCCAL GROUPS A/C/Y/W VACCINE Aged Out No longer eligible based on patient's age to complete this topic PNEUMOCOCCAL VACCINE Aged Out No long er eligible based on patient's age to complete this topic
--- OUTSIDE RECORDS SUMMARY | 2024-11-18 08:27 | XMS_ITS | Encounter Summary ---
Author Organization [facility] Facility Care Team Providers Care Clinical Business Manager Name Role Phone Williams Escoto MD Primary Care Provider Williams Escoto MD Primary Care Provider Kaushik Montemayor MD Primary Care Provider [phone]- [phone] Vance Jack MD Unavailable [phone] Geeta Aparicio Unavailable [phone] Encounter Details Date Type Department Care Team (Latest Contact Info) Description 12/06/2017 Orders Only [facility] CLINCONV Provider, MD Florentin [address] [place] [address] Social History Tobacco Use Types Packs/Day Years Used Date Smoking Tobacco: Never Assessed Comments Unknown Sex and Gender Information Value Date Recorded Sex Assigned at Not on file 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 us Historical Provider Final Res ult documented in this encounter Visit Diagnoses Not on filedocumented in this encounter Care Teams Clinical Business Manager Relationship Specialty Start Date End Date Williams Escoto MD PCP - General 10/27/18 12/22/18 Williams Escoto MD PCP - General 10/03/18 10/26/18 [place] [address] [place] [address] [phone] PCP - General Family Practice 12/23/18 [place] [address] [phone] Referring Physician Internal Medicine 04/02/22 [place] [address] [address] [place] [address] [phone] Physician Theoretical Physics Teacher Orthopedic Surgery 04/20/22 documented as of this encounter
--- OUTSIDE RECORDS SUMMARY | 2024-11-18 08:27 | XMS_ITS | Encounter Summary ---
Author Organization [facility] Facility Care Team Providers Care Administrative Personal Assistant Name Role Phone Williams Escoto MD Primary Care Provider Williams Escoto MD Primary Care Provider Kaushik Montemayor MD Primary Care Provider [phone]- [phone] Vacne Jack MD Unavailable [phone] Geeta Aparicio Unavailable [phone] Encounter Details Date Type Department Care Team (Latest Contact Info) Description 12/09/2017 Orders Only [facility] CLINCONV Provider, MD Florentin [address] [place] [address] Social History Tobacco Use Types Packs/Day Years Used Date Smoking Tobacco: Never Assessed Comments Unknown Sex and Gender Information Value Date Recorded Sex Assigned at Not on file Legal Sex Female 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 us Historical Provider Final Res ult documented in this encounter Visit Diagnoses Not on filedocumented in this encounter Care Teams Administrative Personal Assistant Relationship Specialty Start Date End Date Williams Escoto MD PCP - General 10/27/18 12/22/18 Williams Escoto MD PCP - General 10/03/18 10/26/18 [place] [address] [place] [address] [phone] PCP - General Family Practice 12/23/18 [place] [address] [phone] Referring Physician Internal Medicine 04/02/22 [place] [address] [address] [place] [address] [phone] Physician Mushroom Press Operator Orthopedic Surgery 04/20/22 documented as of this encounter
--- OUTSIDE RECORDS SUMMARY | 2024-11-18 08:27 | XMS_ITS | Encounter Summary ---
Author Organization [facility] Facility Care Team Providers Care Clerical Aide Name Role Phone Williams Escoto MD Primary Care Provider Williams Escoto MD Primary Care Provider Kaushik Montemayor MD Primary Care Provider [phone]- [phone] Vance Jack MD Unavailable [phone] Geeta Aparicio Unavailable [phone] Encounter Details Date Type Department Care Team (Latest Contact Info) Description 12/23/2017 Orders Only [facility] CLINCONV Provider, MD Florentin [address] [place] [address] Social History Tobacco Use Types Packs/Day Years Used Date Smoking Tobacco: Never Assessed Comments Unknown Sex and Gender Information Value Date Recorded Sex Assigned at Not on file Legal Sex Female 10:29 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 Historical Provider Final Res ult * SCAN - LABS (12/23/2017 12:00 AM CDT) Narrative 12/23/2017 12:00 AM CDT Ordered by an unspecified provider. Historical Provider Final Res ult documented in this encounter Visit Diagnoses Not on filedocumented in this encounter Care Teams Clerical Aide Relationship Specialty Start Date End Date Williams Escoto MD PCP - General 10/27/18 12/22/18 Williams Escoto MD PCP - General 10/03/18 10/26/18 [place] [address] [place] [address] [phone] PCP - General Family Practice 12/23/18 [place] [address] [place], [place] [phone] Referring Physician Internal Medicine 04/02/22 [place] [address] [place] [address] [phone] Physician Shingle Sawyer Orthopedic Surgery 04/20/22 documented as of this encounter
--- OUTSIDE RECORDS SUMMARY | 2024-11-18 08:27 | XMS_ITS | Encounter Summary ---
Author Organization [facility] Address [address] [place] [address] Phone Care Team Providers Care Parking Lot Attendant And Cashier Name Role Phone Kaushik Montemayor MD Primary Care Provider [phone] Barrett Tello MD Unavailable [phone] Encounter Details Date Type Department Care Team (Late st Contact Info) Description 09/15/2021 Telephone [facility] [address] [address] Barrett Tello MD [address] [place] [phone] Social History Tobacco Use Types Packs/Day Years Used Date Smoking Tobacco: Former Cigarettes Q uit: 1992 Smokeless Tobacco: Never Alcohol Use Standard Drinks/Week Comments Yes 0 (1 standard drink = 0.6 oz pur e alcohol) occassionally PHQ-2 Answer Date Recorded Total Score - Questions 1-9 0 05/27 Comments Unknown Sex and Gender Information Value Date Recorded Sex Assigned at Not on file Legal Sex Female 10:46 AM CDT Gender Identity Not on file Sexual Orientation Not on file documented as of this encounter Plan of Treatment Upcoming Encounters Date Type Department Care Team (Late st Contact Info) Description 05/05/2025 9:00 AM CDT Office Visit [facility] [place] [address] [place] [phone] Barrett Tello MD [address] [place] [address] documented as of this encounter Visit Diagnoses Not on filedocumented in this encounter Additional Health Concerns Assessment Noted Time PHQ-9 Depression Total Score: 0 06/22/20 21 9:19 AM CDT documented as of this encounter Care Teams Parking Lot Attendant And Cashier Relationship Specialty Start [place] [address] [place], [place] [phone] PCP - General Family Medicine 01/17/21 [place] [address] [place], [place] [phone] Consulting Physician Oncology 01/17/21 documented as of this encounter
--- OUTSIDE RECORDS SUMMARY | 2024-11-18 08:27 | XMS_ITS | Clinical Summary ---
Author [facility] Address [address], [facility] [address] [place] [address] Phone Care Team Providers Care Life Skills Consultant Name Role Phone Kaushik Montemayor MD Primary Care Provider [phone] Barrett Tello MD Unavailable [phone] Allergies Active Allergy Reactions Criticality Noted Date Comments Elemental Sulfur Unknown 12/18/2018 Iodine Unknown 12/18/2018 Penicillins Rash,Unknown Medium 08/23/2015 Shellfish Allergy Other (see Comments),Rash,Unknown Medium 08/23/2015 Sulfacetamide Unknown 05/27/2017 Medications acetaminophen (TYLENOL) 650 MG Tablet Controlled Release Take 650 mg by mouth. 07/07/20 19 Active amitriptyline (ELAVIL) 100 MG Tablet TAKE 2 TABLETS(20 0 MG) BY MOUTH EVERY NIGHT AT BEDTIME 11/19/19 19 Active lurasidone (LATUDA) 40 MG Tablet TAKE 1 TABLET NIGHTLY AT BEDTIME 10/01/19 19 Active metoprolol tartrate (LOPRESSOR) 25 MG Tablet TAKE 1 TABLET(25 MG) BY MOUTH TWICE DAILY 12/06/19 19 Active Pramipexole Dihydrochloride 0.75 MG Tablet TAKE 1 TABLET BY MOUTH EVERY NIGHT AT BEDTIME 09/19/19 19 Active traMADol (ULTRAM) 50 MG Tablet Indication s: Chronic Pain TK 1 T PO Q 6 TO 8 HRS PRN PAIN 05/13/20 20 Active Ozempic, 1 MG/DOSE, 4 MG/3ML Solution Pen-injector INJECT 1 MG UNDER THE SKIN ONE DAY A WEEK FOR WEIGHT LOSS 05/01/20 23 Active ALPRAZolam (XANAX) 0.5 MG Tablet Take 1 tablet by mouth daily as needed for anxiety 05/05/20 24 Active Cholecalciferol (VITAMIN D-3 PO) Take by mouth. Active MAGNESIUM GLYCINATE PO Take by mouth. Active other by Other route. [employer] Active folic acid (FOLVITE) 1 MG TabletIndications:I trish deficiency anemia due to chronic blood loss,B12 deficiency,Anemia due to folic acid deficiency, unspecified deficiency type TAKE 1 TABLET BY MOUTH DAILY 90 Tablet 3 06/16/20 24 Active FeroSul 325 (65 Fe) MG Tablet TAKE 1 TABLET BY MOUTH DAILY 90 Tablet 3 11/07/19 25 Active FeroSul 325 (65 Fe) MG Tablet TAKE 1 TABLET BY MOUTH DAILY 90 Tablet 3 03/18/20 24 025 Discontinued Active Problems Problem Noted Date Diagnosed Date B12 deficiency 03/30/2021 Iron deficiency anemia due to chronic blood loss 03/29/2021 Encounters Date Type Department Care Team Description 11/06/2024 Refill [facility] [address] [address] Barrett Tello MD Medication Refill from Last 3 Months Immunizations Immunization Administration Dates Next Due Covid-19, Mrna, Lnp-s, PF, 1 00 mcg/0.5 mL Dose (Moderna) 10/27/2020,09/29/2020 Influenza Vaccine, Quadrivalent, PF 06/05/2021,1 ,06/09/2018 Family History Medical History Relation Name Comments Alzheimer's Disease Father Parkinsonism Father Cancer Mother Cancer Sister Stroke Sister Relation Name Status Comments Father Mother breast Sister gall bladder Social History Tobacco Use Types Packs/Day Years Used Date Smoking Tobacco: Former Cigarettes Q uit: 1992 Smokeless Tobacco: Never Tobacco Cessation:Counseling Given: Not Answered Alcohol Use Standard Drinks/Week Comments Yes 0 (1 standard drink = 0.6 oz pur e alcohol) occassionally PHQ-2 Answer Date Recorded Total Score - Questions 1-9 0 03/26 Comments Unknown Sex and Gender Information Value Date Recorded Sex Assigned at Not on file Legal Sex Female 10:46 AM CDT Gender Identity Not on file Sexual Orientation Not on file Last Filed Vital Signs Vital Sign Reading Time Taken Comments Blood Pressure 120/78 05/06/2024 8:49 AM CDT Pulse 98 05/06/2024 8:49 AM CDT Temperature 36.5 C (97.7 F) 05/06/2024 8:49 AM CDT Respiratory Rate 18 05/06/2024 8:49 AM CDT Oxygen Saturation 99% 05/06/2024 8:49 AM CDT Inhaled Oxygen Concentration - - Weight 92.3 kg (203 lb 8 oz) 05/06/2024 8:49 AM CDT Height 162.6 cm (5' 4 ) 05/06/2024 8:49 AM CDT Body Mass Index 34.93 05/06/2024 8:49 AM CDT Plan of Treatment Upcoming Encounters Date Type Department Care Team (Late st Contact Info) Description 05/05/2025 9:00 AM CDT Office Visit [facility] [place] [address] [place] [address] Barrett Tello MD [address] [place] [phone] Health Maintenance Due Date Last Done Comments Hepatitis C Virus (HCV) Screening 1961 Pap Smear 1982 Cervical Cancer Screening (CCS) 12/20/1991 HPV/Cotest 12/20/1991 Colonoscopy 2006 Colorectal Cancer Screening 2006 Cologuard 12/20/2011 Immunochemical Fecal Occult Blood 12/20/2011 Pneumococcal Immunization (50+ years) (1 of 1 - PCV) 12/20/2011 Influenza Immunization (#1) 04/26/202405/27, 06/15/2022, 06/05/2021, Additional history exists SARS-COV-2 Immunization ( season) 2024 06/17/2023, 06/15/2022, 06/21/2021, Additional history exists Mammogram 02/25/2025 02/26/2024, 07/0 10/2023, 07/30/2022, Additional history exists DTaP/Tdap/Td Immunization Discontinued 06/15/2022 TdaP Immunization Completed 06/15/2022 Respiratory Syncytial Virus (RSV) Immunization (Adult) Completed 06/17/2023 Zoster Immunization Completed 09/17/2023, Hepatitis B Immunization Aged Out No longer eligible based on patient's age to complete this topic Meningococcal Immunization (ACWY) Aged Out No longer eligible based on patient's age to complete this topic Rotavirus Immunization Aged Out No lo nger eligible based on patient's age to complete this topic [place] [address] [facility] Care Teams Life Skills Consultant Relationship Specialty Start [place] [address] [place] [address] PCP - General Family Medicine 01/17/21 [place] [address] [place] [address] Consulting Physician Oncology 01/17/21
--- OUTSIDE RECORDS SUMMARY | 2024-11-18 08:27 | XMS_ITS | Encounter Summary ---
Author Organization [facility] Facility Care Team Providers Care Charge Manager Name Role Phone Williams Escoto MD Primary Care Provider Williams Escoto MD Primary Care Provider Kaushik Montemayor MD Primary Care Provider [phone]- [phone] Vance Jack MD Unavailable [phone] Geeta Aparicio Unavailable [phone] Encounter Details Date Type Department Care Team (Latest Contact Info) Description 11/18/2017 Orders Only [facility] CLINCONV Provider, MD Florentin [address] [place] [address] Social History Tobacco Use Types Packs/Day Years Used Date Smoking Tobacco: Never Assessed Comments Unknown Sex and Gender Information Value Date Recorded Sex Assigned at Not on file 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 us Historical Provider Final Res ult documented in this encounter Visit Diagnoses Not on filedocumented in this encounter Care Teams Charge Manager Relationship Specialty Start Date End Date Williams Escoto MD PCP - General 10/27/18 12/22/18 Williams Escoto MD PCP - General 10/03/18 10/26/18 [place] [address] [place] [address] [phone] PCP - General Family Practice 12/23/18 [place] [address] [phone] Referring Physician Internal Medicine 04/02/22 [place] [address] [address] [address] [place] [address] [phone] Physician Commercial Attorney Orthopedic Surgery 04/20/22 documented as of this encounter
[2024-11-18 09:14] LABS: Hematocrit 40.5 % (37.0-47.0)
== END 2024-11-18 08:16 | disposition home or self-care (01) ==
LOC: ANHSURGERY 08:18
PROVIDERS: Anesthesiology; PCP Family Medicine; Visit Provider Orthopaedic Surgery
DX: D50.9 Iron deficiency anemia, unspecified (principal); I10 Essential (primary) hypertension; Z01.818 Encounter for other preprocedural examination
CPT/HCPCS: 36415; 85014; 85018; 93005

== ENCOUNTER 2024-11-26 01:56 | Day surgery (SDC) | payer BC, SELFPAY ==
[2024-11-16 13:52] VITALS: BMI 35.9
--- NOTE | 2024-11-16 14:32 | PC.NURSE ---
Report to the Outpatient Waiting Room, entrance under the green pavilion located off [facility], at time _0730_ on date _11/26/24_. Planned Procedure Time: 0930_.? Time changes happen often and if your time is changed the preop area will call you the afternoon before. - You and your visitor will be asked to self-screen and do not enter if you have any COVID symptoms. Please call surgeon if you need to reschedule. - A mask is optional within the hospital at this time. Patients may have clear liquids (water, carbonated beverages, clear teas, apple juice) until 3 hours prior to surgery with a maximum of 20 ounces. - No food from midnight until time of surgery and no smoking, or chewing tobacco (or any form of nicotine). No chewing gum, candy or mints. - Infants may have breast milk until 4 hours before surgery, infant formula 6 hours prior to surgery. - Children will be allowed to drink immediately following surgery.? If applicable, please bring a bottle or sippy cup to assist with drinking. Juice, water, soda, and popsicles are readily available.? For infants on formula, please bring formula the day of surgery.? Pacifiers are allowed. Take only the following medications with a SIP of water on the morning of surgery: NONE DO NOT STOP ANY OF YOUR OTHER PRESCRIPTION MEDICATIONS PRIOR TO SURGERY EXCEPT THE FOLLOWING Hold all vitamins and supplements for 3 days per anesthesiologist. Medications to discontinue per physician OZEMPIC Date to take last dose__PT WILL NOT TAKE THIS WEEK OR NEXT WEEK Please no make-up, nail nepali, hairspray, perfume, deodorant, or body powder the day of surgery.? No jewelry (including any body piercings) or valuables the day of surgery, leave them at home.? Please take a shower or bath the night before, or the morning of, surgery with an antibacterial soap.? Wear comfortable, loose fitting clothing.? Children are encouraged to wear pajamas. - Jewelry must be removed prior to entering the operating room.? Rings and piercings that are not removed may be cut off. - The hospital will not accept responsibility for valuables.? - Please leave all valuables, including medications, at home the day of surgery. If you are going home after surgery, a licensed experienced truck driver must drive you home.? - NO public transportation without another adult if you receive anesthesia. - We recommend that an adult stay with you for 24 hours following discharge. - We also recommend that you do not drive, make important decision, drink alcoholic beverages, or take any drugs that were not prescribed by your health care provider for at least 24 hours after your discharge time. For Pediatric surgeries, we recommend two adults accompany the child home. Follow any additional instructions given to you from your surgeon. Telephone instructions given to _PATIENT__and asked if any additional questions and then verbalized understanding. Patient advised to call surgeon office or pre surgery nurse liaison [phone] if any additional questions.
[2024-11-26] VITALS (10 sets, daily range): BP systolic 120–138; BP diastolic 63–99; PULSE 89–104; RESP 14–16; TEMP 36.1–36.2; O2SAT 98–100; BMI 35.5
--- NOTE | ~2024-11-26 | XR_ITS ---
INTRAOPERATIVE FLUOROSCOPY: CLINICAL HISTORY: 63 years old Female; RIGHT FOOT PROCEDURE COMMENTS: Limited intraoperative fluoroscopy of the right foot was performed. DOSE AREA PRODUCT: 3.2 Gy-cm2 FLUOROSCOPY TIME: 31 seconds FINDINGS/IMPRESSION: Please refer to operative note for further details. Reviewed, dictated and finalized at location A.
--- NOTE | ~2024-11-26 | XR_ITS ---
INTRAOPERATIVE FLUOROSCOPY: CLINICAL HISTORY: 63 years old Female; LEFT FOOT PROCEDURE COMMENTS: Limited intraoperative fluoroscopy of the left foot was performed. CUMULATIVE DOSE: 0.2 mGy FLUOROSCOPY TIME: 31 seconds FINDINGS/IMPRESSION: Please refer to operative note for further details. Reviewed, dictated and finalized at location A.
--- OUTSIDE RECORDS SUMMARY | 2024-11-26 01:59 | XMS_ITS | Encounter Summary ---
Author Organization [facility] Facility Care Team Providers Care Hypertrichologist Name Role Phone Williams Escoto MD Primary Care Provider Williams Escoto MD Primary Care Provider Kaushik Montemayor MD Primary Care Provider [phone]- [phone] Vance Jack MD Unavailable [phone] Geeta Aparicio Unavailable [phone] Encounter Details Date Type Department Care Team (Latest Contact Info) Description 12/06/2017 Orders Only [facility] CLINCONV Provider, MD Florentin [address] [place] [address] Social History Tobacco Use Types Packs/Day Years Used Date Smoking Tobacco: Never Assessed Comments Unknown Sex and Gender Information Value Date Recorded Sex Assigned at Not on file 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 Gender Identity Not on file Sexual Orientation [...] on filedocumented in this encounter Care Teams Hypertrichologist Relationship Specialty Start Date End Date Williams Escoto MD PCP - General 10/27/18 12/22/18 Williams Escoto MD PCP - General 10/03/18 10/26/18 [place] [address] [place] [address] [phone] PCP - General Family Practice 12/23/18 [place] [address] [phone] Referring Physician Internal Medicine 04/02/22 [place] [address] [address] [place] [address] [phone] Physician Environmental Attorney Orthopedic Surgery 04/20/22 documented as of this encounter
--- OUTSIDE RECORDS SUMMARY | 2024-11-26 01:59 | XMS_ITS | Clinical Summary ---
Author Organization [facility] at the Medical Office Building Address [address] [place] [address] Care Team Providers Care Hop Picker Name Role Phone Kaushik Montemayor MD Primary Care Provider [phone]- [phone] Vance Jack MD Unavailable [phone] Geeta Aparicio Unavailable [phone] Allergies Active Allergy Reactions Criticality Noted Date [...] (04/02/2022): Added automatically from request for surgery [id number] Rotator cuff impingement syndrome of right shoul [...] often do you attend chur ch or orthodoxy services? 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 Gender Identity Not on file Sexual Orientation [...] this topic Medical Devices Implanted Type Area Machine Rebuilder Device Identifier Shelf Expiration Date Model / Serial / Lot Knee Components Bilater al: Knee Hip Left: Hip [employer] G7 52mm Limit Hole Hip E Hemisphere Shell Acetabular Pps [id number] - [id number] Implanted:Qty: 1 on 04/19/2022 by Williams Escoto MD at [facility] Right: Hip [employer] [id number] 02/22/2032 [id number] / / [id number] [employer] Trilogy 6.5mm 30mm Self Tap Acetabular Cortical Screw Bone [id number] - [id number] Implanted:Qty: 1 on 04/19/2022 by Williams Escoto MD at [facility] Right: Hip [employer] [id number] 03/15/2032 [id number] / / [id number] [employer] Echo Bi-Metric 9mm 125mm Noncollar Reduce Proximal Profile Press [id number] - [id number] Implanted:Qty: 1 on 04/19/2022 by Williams Escoto MD at [facility] Right: Hip [employer] [id number] 08/03/2029 [id number] / / [id number] [employer] Liner Hip G7 Longevity High Wall 32mm E [id number] - [id number] Implanted:Qty: 1 on 04/19/2022 by Williams Escoto MD at [facility] Right: Hip [employer] [id number] 07/25/[id number] / / [id number] [employer] G7 32mm Type 1 Modular Hip Acetabular +3mm Offset Head Femoral 650-1161 - [id number] Implanted:Qty: 1 on 04/19/2022 by Williams Escoto MD at [facility] Right: Hip [employer] 06/08/2031 [id number] / / [id number] Insurance [place] Member Subscriber Plan / Payer (Ef fective 2019-Present) Name:Carmen Cobosuermey Bernal Relation to Subscriber:Spouse Name:RIANNA COBOS Date of :1967 (Home) Address: [place] [address] Payer ID:[id number] (NAIC) Group ID:[id number] Type:BC OTHER Address: [address] [place] [phone] Advance Directives For more information, please contact: [phone] * Full Code (Latest Code Status on File) Date Activated Date Inactivated Comments 04/19/2022 4:00 PM 04/21/2022 4:29 PM Care Teams Hop Picker Relationship Specialty Start [place] [address] [place] [address] PCP - General Family Practice 12/23/18 [place] [address] [facility] [address] [place] [address] Referring Physician Internal Medicine 04/02/22 [place] [address] [address] [address] Physician Civilian Technician Orthopedic Surgery 04/20/22
--- OUTSIDE RECORDS SUMMARY | 2024-11-26 01:59 | XMS_ITS | Encounter Summary ---
Author Organization [facility] Address [address] [place] [address] Care Team Providers Care Cigar Machine Feeder Name Role Phone Kaushik Montemayor MD Primary Care Provider [phone] Vance Jack MD Unavailable [phone] Encounter Details Date Type Department Care Team (Late st Contact Info) Description 07/16/2022 [employer] [facility] Message Enc [facility] Family & Internal Medicine [address] [address] [employer], [facility] Provider Due for routine follow up appt Social History Tobacco Use Types Packs/Day Years Used Date Smoking Tobacco: Former Cigarettes 0.5 12 1 981 - 1992 Smokeless Tobacco: Never Alcohol Use Standard Drinks/Week Comments Yes 0 (1 standard drink = 0.6 oz pur e alcohol) wine once a month AUDIT-C Answer Date Recorded Frequency of Alcohol Consumption Monthly or less 01/09/2019 Average Number of Drinks Not on file 019 Frequency of Binge Drinking Not on file 12/24 PHQ-2 Answer Date Recorded PHQ-2 Score - If the patient scores above 3, please move on to questions 3-9 0 12/04/2021 Education Answer Date Recorded What is the highest level of school you have completed or the highest degree you have received? 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 No / Unsure 07/17/2022 10:29 AM METER MAINTENANCE PERSON documented as of this encounter Plan of Treatment Not on file documented as of this encounter Visit Diagnoses Not on filedocumented in this encounter Additional Health Concerns Assessment Noted Time PHQ-9 Depression Total Score: 0 12/05/19 22 8:05 AM CDT documented as of this encounter Care Teams Cigar Machine Feeder Relationship Specialty Start [place] [address] [place] [address] PCP - General FAMILY PRACTICE 09/19/18 Vance Jack MD [facility] [address] [place] [address] Susan Financial Planning Assistant INTERVENTIONAL CARDIOLOGY 01/12/19 documented as of this encounter
--- OUTSIDE RECORDS SUMMARY | 2024-11-26 01:59 | XMS_ITS | Encounter Summary ---
Author Organization [facility] Facility Care Team Providers Care Senior Backup Administrator Name Role Phone Williams Escoto MD Primary Care Provider Williams Escoto MD Primary Care Provider Kaushik Montemayor MD Primary Care Provider +- [phone] Vance Jack MD Unavailable [phone] Geeta Aparicio Unavailable [phone] Encounter Details Date Type Department Care Team (Latest Contact Info) Description 10/10/2016 Orders Only [facility] Provider, MD Florentin [address] [place] [address] Social History Tobacco Use Types Packs/Day Years Used Date Smoking Tobacco: Never Assessed Comments Unknown Sex and Gender Information Value Date Recorded Sex Assigned at Not on file Legal Sex Female 10:29 AM EMPLOYEE ADVISER Gender Identity Not on file Sexual Orientation Not on file documented as of this encounter Plan of Treatment Not on file documented as of this encounter Procedures Procedure Name Priority Date/Time Associated Diagnosis Comments PROCEDURE - RESULT 10/10/2016 12 :00 AM EMPLOYEE ADVISER documented in this encounter Results * PROCEDURE - RESULT (10/10/2016 12:00 AM EMPLOYEE ADVISER) Narrative 10/10/2016 12:00 AM EMPLOYEE ADVISER Ordered by an unspecified provider. us Historical Provider Final Res ult documented in this encounter Visit Diagnoses Not on filedocumented in this encounter Care Teams Senior Backup Administrator Relationship Specialty Start Date End Date Williams Escoto MD PCP - General 10/27/18 12/22/18 Williams Escoto MD PCP - General 10/03/18 10/26/18 [place] [address] [employer] [address] [id number] PCP - General Family Practice 12/23/18 [place] [address] [address] [employer] [address] [phone] Referring Physician Internal Medicine 04/02/22 [place] [address] [address] [employer] [address] [phone] Physician Busser Orthopedic Surgery 04/20/22 documented as of this encounter
--- OUTSIDE RECORDS SUMMARY | 2024-11-26 01:59 | XMS_ITS | Encounter Summary ---
Author Organization [facility] Facility Care Team Providers Care Certified Ophthalmic Surgical Assistant Name Role Phone Williams Escoto MD Primary Care Provider Williams Escoto MD Primary Care Provider Kaushik Montemayor MD Primary Care Provider [phone]- [phone] Vance Jack MD Unavailable [phone] Geeta Aparicio Unavailable [phone] Encounter Details Date Type Department Care Team (Latest Contact Info) Description 10/01/2018 Orders Only [facility] Provider, MD Florentin [address] [place] [address] Social History Tobacco Use Types Packs/Day Years Used Date Smoking Tobacco: Never Assessed Comments Unknown Sex and Gender Information Value Date Recorded Sex Assigned at Not on file Legal Sex Female 10:29 AM MARINE PILOT Gender Identity Not on file Sexual Orientation Not on file documented as of this encounter Plan of Treatment Not on file documented as of this encounter Procedures Procedure Name Priority Date/Time Associated Diagnosis Comments PROCEDURE - RESULT 10/01/2018 12 :00 AM MARINE PILOT documented in this encounter Results * PROCEDURE - RESULT (10/01/2018 12:00 AM MARINE PILOT) Narrative 10/01/2018 12:00 AM MARINE PILOT Ordered by an unspecified provider. us Historical Provider Final Res ult documented in this encounter Visit Diagnoses Not on filedocumented in this encounter Care Teams Certified Ophthalmic Surgical Assistant Relationship Specialty Start Date End Date Williams Escoto MD PCP - General 10/27/18 12/22/18 Williams Escoto MD PCP - General 10/03/18 10/26/18 [place] [address] [employer] [address] [id number] PCP - General Family Practice 12/23/18 [place] [address] [employer] [address] [phone] Referring Physician Internal Medicine 04/02/22 [place] [address] [employer] [address] [phone] Physician Supervisor Sewing Room Orthopedic Surgery 04/20/22 documented as of this encounter
--- OUTSIDE RECORDS SUMMARY | 2024-11-26 01:59 | XMS_ITS | Encounter Summary ---
Author Organization [facility] Facility Care Team Providers Care Induction Brazer Name Role Phone Williams Escoto MD Primary Care Provider Williams Escoto MD Primary Care Provider Kaushik Montemayor MD Primary Care Provider +- [phone] Vance Jack MD Unavailable [phone] Geeta Aparicio Unavailable [phone] Encounter Details Date Type Department Care Team (Latest Contact Info) Description 12/16/2017 Orders Only [facility]IN[facility] Provider, MD Florentin [address] [place] [address] Social History Tobacco Use Types Packs/Day Years Used Date Smoking Tobacco: Never Assessed Comments Unknown Sex and Gender Information Value Date Recorded Sex Assigned at Not on file 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 Gender Identity Not on file Sexual Orientation [...] on filedocumented in this encounter Care Teams Induction Brazer Relationship Specialty Start Date End Date Williams Escoto MD PCP - General 10/27/18 12/22/18 Williams Escoto MD PCP - General 10/03/18 10/26/18 [place] [email or web address] [place] [phone] PCP - General Family Practice 12/23/18 [place] [email or web address] [phone] Referring Physician Internal Medicine 04/02/22 [place] [address] [email or web address] [address] [place] [id number] Physician Airport Operations Officer Orthopedic Surgery 04/20/22 documented as of this encounter
--- OUTSIDE RECORDS SUMMARY | 2024-11-26 01:59 | XMS_ITS | Encounter Summary ---
Author Organization [facility] Facility Care Team Providers Care Set Up Operator Name Role Phone Williams Escoto MD Primary Care Provider Williams Escoto MD Primary Care Provider Kaushik Montemayor MD Primary Care Provider +- [phone] Vance Jack MD Unavailable [phone] Geeta Aparicio Unavailable [phone] Encounter Details Date Type Department Care Team (Latest Contact Info) Description 12/23/2017 Orders Only [facility]INCON[facility] Provider, MD Florentin [address] [place] [address] Social History Tobacco Use Types Packs/Day Years Used Date Smoking Tobacco: Never Assessed Comments Unknown Sex and Gender Information Value Date Recorded Sex Assigned at Not on file Legal Sex Female 10:29 AM CHECK WRITER Gender Identity Not on file Sexual Orientation [...] on filedocumented in this encounter Care Teams Set Up Operator Relationship Specialty Start Date End Date Williams Escoto MD PCP - General 10/27/18 12/22/18 Williams Escoto MD PCP - General 10/03/18 10/26/18 [place] [address] [place] [phone] PCP - General Family Practice 12/23/18 [place] [address] [place], [place] [phone] Referring Physician Internal Medicine 04/02/22 [place] [address] [place] [phone] Physician Flamer After Lasting Orthopedic Surgery 04/20/22 documented as of this encounter
--- OUTSIDE RECORDS SUMMARY | 2024-11-26 01:59 | XMS_ITS | Encounter Summary ---
Author Organization [facility] Address [address] [place] [address] Phone Care Team Providers Care Drug Safety Scientist Name Role Phone Kaushik Montemayor MD Primary Care Provider [phone] Barrett Tello MD Unavailable [phone] Encounter Details Date Type Department Care Team (Late st Contact Info) Description 09/15/2021 Telephone [facility] [address] [address] Barrett Tello MD [address] [place] [address] Social History Tobacco Use Types Packs/Day [...] CDT Office Visit [facility] [address] [place] [address] Barrett Tello MD [address] [place] [address] documented as of this encounter Visit Diagnoses Not on filedocumented in this encounter Additional Health Concerns Assessment Noted Time PHQ-9 Depression Total Score: 0 06/22/20 21 9:19 AM CDT documented as of this encounter Care Teams Drug Safety Scientist Relationship Specialty Start [place] [address] [place], [place] [phone] PCP - General Family Medicine 01/17/21 [place] [address] [place], [place] [phone] Consulting Physician Oncology 01/17/21 documented as of this encounter
--- OUTSIDE RECORDS SUMMARY | 2024-11-26 01:59 | XMS_ITS | Referral Summary ---
Author Organization [facility] at the Medical Office Building Address [address] [place] [address] Care Team Providers Care Painting Technician Name Role Phone Kaushik Montemayor MD Primary Care Provider [phone] Vance Jack MD Unavailable [phone] Geeta Aparicio Unavailable [phone] Allergies Active Allergy Reactions Criticality Noted Date [...] (04/02/2022): Added automatically from request for surgery [id number] Rotator cuff impingement syndrome of right shoul [...] often do you attend chur ch or alevism services? 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 Gender Identity Not on file Sexual Orientation [...] on file Medical Devices Implanted Type Area Purchase Request Editor Device Identifier Shelf Expiration Date Model / Serial / Lot Knee Components Bilater al: Knee Hip Left: Hip [employer] G7 52mm Limit Hole Hip E Hemisphere Shell Acetabular Pps [id number] - [id number] Implanted:Qty: 1 on 04/19/2022 by Williams Escoto MD at [facility] Right: Hip [employer] [id number] 02/22/2032 [id number] / / [id number] [employer] Trilogy 6.5mm 30mm Self Tap Acetabular Cortical Screw Bone [id number] - [id number] Implanted:Qty: 1 on 04/19/2022 by Williams Escoto MD at [facility] Right: Hip [employer] [id number] 03/15/2032 [id number] / / [id number] [employer] Echo Bi-Metric 9mm 125mm Noncollar Reduce Proximal Profile Press [id number] - [id number] Implanted:Qty: 1 on 04/19/2022 by Williams Escoto MD at [facility] Right: Hip [employer] [id number] 08/03/2029 [id number] / / [id number] [employer] Liner Hip G7 Longevity High Wall 32mm E [id number] - [id number] Implanted:Qty: 1 on 04/19/2022 by Williams Escoto MD at [facility] Right: Hip [employer] [id number] 07/25/[id number] / / [id number] [employer] G7 32mm Type 1 Modular Hip Acetabular +3mm Offset Head Femoral 650-1161 - [id number] Implanted:Qty: 1 on 04/19/2022 by Williams Escoto MD at [facility] Right: Hip [employer] 06/08/2031 [id number] / / [id number] [place] Advance Directives For more information, please contact: [phone] * Full Code (Latest Code Status on File) Date Activated Date Inactivated Comments 04/19/2022 4:00 PM 04/21/2022 4:29 PM Care Teams Painting Technician Relationship Specialty Start [place] [address] [address] [address] PCP - General Family Practice 12/23/18 [place] [address] [address] [address] Referring Physician Internal Medicine 04/02/22 [place] [address] [facility] [address] [address] Physician Meteorologist Liaison Orthopedic Surgery 04/20/22
--- OUTSIDE RECORDS SUMMARY | 2024-11-26 01:59 | XMS_ITS | Encounter Summary ---
Author Organization [facility] Care Team Providers Care Ged Tutor Name Role Phone Williams Escoto MD Primary Care Provider Williams Escoto MD Primary Care Provider Kaushik Montemayor MD Primary Care Provider +- [phone] Vance Jack MD Unavailable [phone] Geeta Aparicio Unavailable [phone] Encounter Details Date Type Department Care Team (Latest Contact Info) Description 10/25/2017 Orders Only [facility] Provider, MD Florentin [address] [place] [address] Social History Tobacco Use Types Packs/Day Years Used Date Smoking Tobacco: Never Assessed Comments Unknown Sex and Gender Information Value Date Recorded Sex Assigned at Not on file Legal Sex Female 10:29 AM COMPLEX CARE NURSE PRACTITIONER Gender Identity Not on file Sexual Orientation Not on file documented as of this encounter Plan of Treatment Not on file documented as of this encounter Procedures Procedure Name Priority Date/Time Associated Diagnosis Comments PROCEDURE - RESULT 10/25/2017 12 :00 AM COMPLEX CARE NURSE PRACTITIONER documented in this encounter Results * PROCEDURE - RESULT (10/25/2017 12:00 AM COMPLEX CARE NURSE PRACTITIONER) Narrative 10/25/2017 12:00 AM COMPLEX CARE NURSE PRACTITIONER Ordered by an unspecified provider. us Historical Provider Final Res ult documented in this encounter Visit Diagnoses Not on filedocumented in this encounter Care Teams Ged Tutor Relationship Specialty Start Date End Date Williams Escoto MD PCP - General 10/27/18 12/22/18 Williams Escoto MD PCP - General 10/03/18 10/26/18 [place] [address] [employer] [address] [phone] PCP - General Family Practice 12/23/18 [place] [address] [employer] [address] [phone] Referring Physician Internal Medicine 04/02/22 [place] [address] [employer] [address] [phone] Physician Mill Roll Operator Orthopedic Surgery 04/20/22 documented as of this encounter
--- OUTSIDE RECORDS SUMMARY | 2024-11-26 01:59 | XMS_ITS | Clinical Summary ---
Author Organization [facility] Address [address], [facility] [address] [place] [address] Phone Care Team Providers Care Log Stacker Operator Name Role Phone Kaushik Montemayor MD Primary Care Provider [phone] Barrett Tello MD Unavailable [phone] Allergies Active Allergy Reactions Criticality Noted Date [...] by mouth. Active other by Other route. [employer] Active folic acid (FOLVITE) 1 MG TabletIndications:I [...] Description 11/06/2024 Refill [facility] [address] [address] Barrett Tello MD Medication Refill [...] CDT Office Visit [facility] [address] [place] [address] Barrett Tello MD [address] [place] [address] Health Maintenance Due Date Last Done [...] to complete this topic [place] [address] [facility] Care Teams Log Stacker Operator Relationship Specialty Start [place] [address] [place] [address] PCP - General Family Medicine 01/17/21 [place] [address] [place] [address] Consulting Physician Oncology 01/17/21
--- OUTSIDE RECORDS SUMMARY | 2024-11-26 01:59 | XMS_ITS | Encounter Summary ---
Author Organization [facility] Facility Care Team Providers Care Farmworker Poultry Name Role Phone Williams Escoto MD Primary Care Provider Williams Escoto MD Primary Care Provider Kaushik Montemayor MD Primary Care Provider +- [phone] Vance Jack MD Unavailable [phone] Geeta Aparicio Unavailable [phone] Encounter Details Date Type Department Care Team (Latest Contact Info) Description 12/09/2017 Orders Only [facility]IN[facility] Provider, MD Florentin [address] [place] [address] Social History Tobacco Use Types Packs/Day Years Used Date Smoking Tobacco: Never Assessed Comments Unknown Sex and Gender Information Value Date Recorded Sex Assigned at Not on file Legal 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 Female 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 Gender Identity Not on file Sexual Orientation [...] on filedocumented in this encounter Care Teams Farmworker Poultry Relationship Specialty Start Date End Date Williams Escoto MD PCP - General 10/27/18 12/22/18 Williams Escoto MD PCP - General 10/03/18 10/26/18 [place] [address] [place] [id number] PCP - General Family Practice 12/23/18 [place] [address] [phone] Referring Physician Internal Medicine 04/02/22 [place] [address] [employer] [place] [phone] Physician Movement Assembly Final Inspector Orthopedic Surgery 04/20/22 documented as of this encounter
--- OUTSIDE RECORDS SUMMARY | 2024-11-26 01:59 | XMS_ITS | Encounter Summary ---
Author Organization [facility] Facility Care Team Providers Care Lav Crewman Name Role Phone Williams Escoto MD Primary Care Provider Williams Escoto MD Primary Care Provider Kaushik Montemayor MD Primary Care Provider +- [phone] Vance Jack MD Unavailable [phone] Geeta Aparicio Unavailable [phone] Encounter Details Date Type Department Care Team (Latest Contact Info) Description 11/21/2017 Orders Only [facility]IN[facility] Provider, MD Florentin [address] [place] [address] Social History Tobacco Use Types Packs/Day Years Used Date Smoking Tobacco: Never Assessed Comments Unknown Sex and Gender Information Value Date Recorded Sex Assigned at Not on file Legal Sex Female 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 Gender Identity Not on file Sexual Orientation [...] on filedocumented in this encounter Care Teams Lav Crewman Relationship Specialty Start Date End Date Williams Escoto MD PCP - General 10/27/18 12/22/18 Williams Escoto MD PCP - General 10/03/18 10/26/18 [place] [address] [place] [phone] PCP - General Family Practice 12/23/18 [place] [address] [phone] Referring Physician Internal Medicine 04/02/22 [place] [address] [address] [place] [id number] Physician Dag Sprayer Orthopedic Surgery 04/20/22 documented as of this encounter
--- OUTSIDE RECORDS SUMMARY | 2024-11-26 01:59 | XMS_ITS | Encounter Summary ---
Author Organization [facility] Address [address] [place] [address] Phone Care Team Providers Care Rejoiner Name Role Phone Kaushik Montemayor MD Primary Care Provider [phone] Barrett Tello MD Unavailable [phone] Reason for Visit * Reason Comments Medication Refill Encounter Details Date Type Department Care Team (Late st Contact Info) Description 08/17/2023 Refill [facility] [address] [place] [address] Barrett Tello MD [address] [place] [address] Medication Refill Social History Tobacco [...] request from pharmacy. Please fill if appropriate. ETRICS EXPERIMENTALIST documented in this encounter Plan of Treatment Upcoming Encounters Date Type Department Care Team (Late st Contact Info) Description 05/05/2025 9:00 AM CDT Office Visit [facility] [address] [phone] Barrett Tello MD [address] [place] [phone] documented as of this encounter Visit Diagnoses [...] documented as of this encounter Care Teams Rejoiner Relationship Specialty Start [place] [address] [place] [address] PCP - General Family Medicine 01/17/21 [place] [address] [place] [address] Consulting Physician Oncology 01/17/21 documented as of this encounter
--- OUTSIDE RECORDS SUMMARY | 2024-11-26 01:59 | XMS_ITS | Encounter Summary ---
Author Organization [facility] Facility Care Team Providers Care Air Boatswain Name Role Phone Williams Escoto MD Primary Care Provider Williams Escoto MD Primary Care Provider Kaushik Montemayor MD Primary Care Provider [phone] Vance Jack MD Unavailable [phone] Geeta Aparicio Unavailable [phone] Encounter Details Date Type Department Care Team (Latest Contact Info) Description 11/07/2017 Orders Only [facility] Provider, MD Florentin [address] [place] [address] Social History Tobacco Use Types Packs/Day Years Used Date Smoking Tobacco: Never Assessed Comments Unknown Sex and Gender Information Value Date Recorded Sex Assigned at Not on file Legal Sex Female 10:29 AM RESIDENT CARE SPEC Gender Identity Not on file Sexual Orientation [...] on filedocumented in this encounter Care Teams Air Boatswain Relationship Specialty Start Date End Date Williams Escoto MD PCP - General 10/27/18 12/22/18 Williams Escoto MD PCP - General 10/03/18 10/26/18 [place] [address] [place] [id number] PCP - General Family Practice 12/23/18 [place] [address] [phone] Referring Physician Internal Medicine 04/02/22 [place] [address] [employer] [address] [place] [address] [phone] Physician Parking Station Attendant Orthopedic Surgery 04/20/22 documented as of this encounter
--- OUTSIDE RECORDS SUMMARY | 2024-11-26 01:59 | XMS_ITS | Encounter Summary ---
Author Organization [facility] Facility Care Team Providers Care Blueprint Engineer Name Role Phone Williams Escoto MD Primary Care Provider Williams Escoto MD Primary Care Provider Kaushik Montemayor MD Primary Care Provider [phone] Vance Jack MD Unavailable [phone] Geeta Aparicio Unavailable [phone] Encounter Details Date Type Department Care Team (Latest Contact Info) Description 09/24/2018 Orders Only [facility]INCON[facility] Provider, MD Florentin [address] [place] [address] Social History Tobacco Use Types Packs/Day Years Used Date Smoking Tobacco: Never Assessed Comments Unknown Sex and Gender Information Value Date Recorded Sex Assigned at Not on file Legal Sex Female 10:29 AM SKI PATROLLER Gender Identity Not on file Sexual Orientation Not on file documented as of this encounter Plan of Treatment Not on file documented as of this encounter Procedures Procedure Name Priority Date/Time Associated Diagnosis Comments PROCEDURE - RESULT 09/24/2018 12 :00 AM SKI PATROLLER documented in this encounter Results * PROCEDURE - RESULT (09/24/2018 12:00 AM SKI PATROLLER) Narrative 09/24/2018 12:00 AM SKI PATROLLER Ordered by an unspecified provider. us Historical Provider Final Res ult documented in this encounter Visit Diagnoses Not on filedocumented in this encounter Care Teams Blueprint Engineer Relationship Specialty Start Date End Date Williams Escoto MD PCP - General 10/27/18 12/22/18 Williams Escoto MD PCP - General 10/03/18 10/26/18 [place] [id number] [address] [employer] [address] [phone] PCP - General Family Practice 12/23/18 [place] [address] [phone] Referring Physician Internal Medicine 04/02/22 [place] [address] [address] [phone] Physician Musical Instruments Assembler Orthopedic Surgery 04/20/22 documented as of this encounter
--- OUTSIDE RECORDS SUMMARY | 2024-11-26 01:59 | XMS_ITS | Clinical Summary ---
Author Organization [facility] Address [address] [place] [address] Care Team Providers Care Diamond Finishing Supervisor Name Role Phone Unavailable Primary Care Provider Unavailabl e Source Comments [facility],non-owned Affiliates and Associated Physician Practices is amultiple site organization consisting of ambulatory clinics and hospital sitesin [place], [place], [place] and [place]. This disclosure is being madepursuant to the Care Everywhere program and may not contain all information available regarding this patient. Last updated 18.[facility] [employer] Social History Tobacco Use Types Packs/Day Years [...] - 2023- season) 2024 06/21/2021, 10/27/2020, 09/29/2020 MAMMOGRAM 07/30/2024 07/30/2022 DEPRESSION SCREENING 08/26/2024 INFLUENZA VACCINE (Season Ended) 2025 06/17/2023, 06/15/2022, 06/05/2021, Additional history exists Respiratory Syncytial Virus (RSV) Vaccine Pt: or [...]
--- OUTSIDE RECORDS SUMMARY | 2024-11-26 01:59 | XMS_ITS | Clinical Summary ---
Author Organization [facility] Address [address] [place] [address] Care Team Providers Care Field Application Engineer Name Role Phone Leyla Montemayor MD Primary Care Provider [phone] Vance Jack MD Unavailable [phone] Allergies Active Allergy Reactions Criticality Noted Date Comments Iodine Hives,Rash Low 12/18/2018 IVP dye Penicillins Rash Low 08/23/2015 Shellfish Allergy Hives,Rash Medium 08/23/2015 Sulfa Antibiotics Hives Low 06/05/2021 Medications ferrous sulfate, 65 mg elemental, 325 (65 FE) MG tablet Take 1 tablet (325 mg total) by mouth daily. 022 Active folic acid (FOLVITE) 1 MG tabletIndications: Folic acid deficiency TAKE 1 TABLET(1 MG) BY MOUTH DAILY 90 tablet 023 Active Vitamin D-Vitamin K (VITAMIN K2-VITAMIN D3 OR) Ac tive GNP MAGNESIUM OR Act pepe cyanocobalamin (B-12) 1000 MCG/ML injectionIndicatio ns:Vitamin B12 deficiency Inject 1ml into the muscle once per month 10 mL 024 Active Syringe/Needle, Disp, (SYRINGE 3CC/23GX1 ) 23G X 1 3 ML MiscIndications:Vi tamin B12 deficiency Use to inject Vitamin B12 once per month 15 each 1 024 Active amitriptyline (ELAVIL) 100 MG tabletIndications: Insomnia, unspecified type TAKE 2 TABLETS(200 MG) BY MOUTH EVERY NIGHT AT BEDTIME 180 tablet 025 Active Additional Information Patient taking differently: 300 mg Oral Nightly at bedtime, Reported on 10/16/2024 Pramipexole Dihydrochloride 0.75 MG TabIndications:Ins omnia, unspecified type TAKE 1 TABLET BY MOUTH EVERY NIGHT AT BEDTIME 90 tablet 025 Active neomycin-polymyxin -dexamethasone (MAXITROL) 3.5-43205-7.1 Ointment APPLY THREE TIMES DAILY BOTH EYES 024 Active lurasidone (LATUDA) 40 MG Tab tabletIndications: Bipolar disorder, in full remission, most recent episode manic ([facility]) TAKE 1 TABLET NIGHTLY AT BEDTIME 90 tablet 1 025 Active traMADol (ULTRAM) 50 MG tabletIndications: Chronic Pain Indications: Chronic Pain TAKE 1 TABLET BY MOUTH EVERY 6 TO 8 HOURS NEEDED FOR CHRONIC PAIN 60 tablet 025 Active ALPRAZolam (XANAX) 0.5 MG tabletIndications: Anxiety TAKE 1 TABLET BY MOUTH DAILY NEEDED FOR ANXIETY 30 tablet 025 Active ALPRAZolam (XANAX) 0.5 MG tabletIndications: Anxiety TAKE 1 TABLET BY MOUTH DAILY NEEDED FOR ANXIETY 30 tablet 025 2024 Discontinued Active Problems Problem Noted Date Diagnosed Date Anxiety 12/27/2023 Tinnitus aurium, bilateral 12/07/2023 S/P total right hip arthroplasty 04/19/2022 Primary osteoarthritis of right hip 04/02/2022 Overview (04/12/2022): Added automatically from request for surgery [id number] Tachycardia 08/11/2021 Assessment & Plan (10/16/2024 12:04 PM SEARCH DIRECTOR): Heart rate is elevated today. She denies any palpitations. She stopped metoprolol prior to her last office visit. Denies elevated heart rates at home. Assessment & Plan (08/20/2022 10:17 AM SEARCH DIRECTOR): Heart rate is elevated today. She says that it has been well controlled. Continue metoprolol. Assessment & Plan (08/11/2021 8:34 AM SEARCH DIRECTOR): Continue with BB Morbid obesity 06/09/2018 Assessment & Plan (10/16/2024 12:04 PM SEARCH DIRECTOR): She is obese with a Body mass index is 35.36 kg/m . She was educated on lifestyle modifications including diet and exercise. She is lost over 130 pounds and is continuing to stay active. Assessment & Plan (08/20/2022 10:18 AM SEARCH DIRECTOR): She is morbidly obese with a Body mass index is 46.86 kg/m . She was educated on lifestyle modifications including diet and exercise. Assessment & Plan (08/11/2021 8:34 AM SEARCH DIRECTOR): Encourage lifestyle modifications Insomnia 03/07/2018 Arthritis 07/11/2017 Bipolar disorder ([facility]) 05/27/2017 Restless leg syndrome 05/27/2017 Resolved Problems Problem Noted Date Diagnosed Date Resolved Date Palpitations 08/20/2022 09/27/2023 Assessment & Plan (08/20/2022 10:18 AM SEARCH DIRECTOR): Continue metoprolol. Elevated BP without diagnosis of hypertension 08/20/20 22 09/27/2023 Assessment & Plan (08/20/2022 10:19 AM SEARCH DIRECTOR): BP elevated in office today. Wears contact lenses 10/31/2017 020 Heart burn 05/27/2017 04/12/2022 Wears glasses 05/27/2017 05/06/2020 Encounters Date Type Department Care Team Description 11/18/2024 Scan HEALTH INFO SRVCS Scanned, Doc [facility] Lab (SCAN) 10/28/2024 Scan MG HEALTH INFO SRVCS Scanned, Doc Med Group Image (SCAN) 10/16/2024 9:15 AM SEARCH DIRECTOR Office Visit [facility] [address] [place] [id number] Vance Jack MD Lanter, Megan N, PA Tachycardia 10/16/2024 Travel 10/01/2024 Orders Only [facility] Family & Internal [facility] [address] [place] [phone] Leyla Montemayor MD 09/30/2024 1:31 PM SEARCH DIRECTOR - 09/30/2024 11:59 PM SEARCH DIRECTOR Hospital Encounter [facility] Mammography [id number] [place] [address] Leyla Montemayor MD Discharge Disposition: Home or Self Care (Routine Discharge) 09/30/2024 Travel 09/22/2024 1:22 PM SEARCH DIRECTOR - 09/22/2024 11:59 PM SEARCH DIRECTOR Hospital Encounter [facility] Laboratory [address] [place] [address] Leyla Montemayor MD Discharge Disposition: Home or Self Care (Routine Discharge) 09/22/2024 8:50 AM SEARCH DIRECTOR Laboratory Only [facility] Internal [address] [phone] Leyla Montemayor MD 09/22/2024 8:20 AM SEARCH DIRECTOR Office Visit [facility] Internal [address] [phone] Leyla Montemayor MD Follow Up; Med Refills 09/22/2024 Travel 09/14/2024 Telephone [facility] Internal [address] [phone] Leyla Montemayor MD Orders 09/02/2024 Scan HEALTH INFO SRVCS Scanned, Doc Med Group Image (SCAN) from Last 3 Months Immunizations Name Administration Dates Next Due Arexvy Respiratory Syncytial Virus (RSV, adjuvanted) 0.5 mL, PF 06/17/2023 Fluzone 6 Months+ Quad (0.5 mL Prefilled Syringe) 06/05/2021,05/26/2019 Influenza Adult (Generic) 06/19/2024,,06/15/2022,2017 MODERNA COVID-19 (12+) MRNA, LNP-S, PF, 100 MCG/ 0.5 ML DOSE 06/21/2021,10/27/2020,09/29/2020 Shingrix 09/17/2023,07/09/2023 Tdap (Generic) 06/15/2022 Family History Medical History Relation Comments Alzheimers Father Arthritis Father Breast Cancer Maternal Grandmother Arthritis Mother Breast Cancer Mother Stroke Paternal Grandfather Cancer Sister 1 stage 4 gallblad jack Heart Attack Sister 1 Stroke Sister 1 blood clots Sister 1 Arthritis Sister 2 Arthritis Sister 3 Relation Status Comments Father (Age 77) Maternal Grandmother (Age 92) Mother (Age 88) Paternal Grandfather (Age 80) Sister 1 Sister 2 Alive Sister 3 Alive Social History Tobacco Use Types Packs/Day Years Used Date Smoking Tobacco: Former Cigarettes 0.5 12 1 - 1992 Smokeless Tobacco: Never Tobacco Cessation:Counseling Given: No Alcohol Use Standard Drinks/Week Comments Yes 0 (1 standard drink = 0.6 oz pur e alcohol) wine once a month AUDIT-C Answer Date Recorded Frequency of Alcohol Consumption Monthly or less 01/09/2019 Average Number of Drinks Not on file 019 Frequency of Binge Drinking Not on file 12/24 PHQ-2 Answer Date Recorded Patient Health Questionnaire-2 Score 2 05/27/2024 Education Answer Date Recorded What is the [...] 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, 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 Not on file Not o n file Last Filed Vital Signs Vital Sign Reading Time Taken Comments Blood Pressure 120/80 10/16/2024 8:56 AM SEARCH DIRECTOR Pulse 108 10/16/2024 8:56 AM SEARCH DIRECTOR Temperature 36.5 C (97.7 F) 09/22/2024 8:10 AM SEARCH DIRECTOR Respiratory Rate 16 09/22/2024 8:10 AM SEARCH DIRECTOR Oxygen Saturation 99% 09/22/2024 8:10 AM SEARCH DIRECTOR Inhaled Oxygen Concentration - - Weight 93.4 kg (206 lb) 09/22/2024 8:10 AM SEARCH DIRECTOR Height 162.6 cm (5' 4 ) 10/16/2024 8:56 AM SEARCH DIRECTOR Body Mass Index 35.36 09/22/2024 8:10 AM SEARCH DIRECTOR Plan of Treatment Health Maintenance Due Date Last Done Comments Cervical Cancer Screening Pap Smear (Age 30 to 64) Every 3 Years 1961 Colorectal Cancer Screening Colonoscopy (10 Years) 1961 Annual Physical 1964 Hepatitis C 12/20/1979 Cervical Cancer Screening Pap with HPV Testing (Age 30 to 64) Every 5 Years 12/20/1991 Cervical Cancer Screening with HPV 12/20/1991 COVID-19 Vaccine ( season) 2024 06/17/2023, 06/15/2022, 06/21/2021, Additional history exists PHQ-2 (Physician [place]) 08/26/2024 05/27/2024 Mammogram Screening 09/30/2026 09/30/2024, 02/26/2024, 07/30/2022, Additional history exists DTaP, Tdap and Td Vaccines (2 - Td or Tdap) 06/15/2032 06/15/2022 Colorectal Cancer Screening FIT-DNA (3 Years) Discontinued 06/11/2019 RSV Immunization or 60+ Years Completed 06/17/2023 Zoster Vaccines Completed 09/17/2023, 07/09/2023 Meningococcal B Vaccine Aged Out No l onger eligible based on patient's age to complete this topic Meningococcal Vaccine Aged Out No andi carine eligible based on patient's age to complete this topic Pneumococcal Vaccine: Pediatrics (0 to 5 Years) and At-Risk Patients (6 to 64 Years) Aged Out No longer eligible based on patient's age to complete this topic RSV Immunizations Under 20 Months Aged Out No longer eligible based on patient's age to complete this topic Procedures Procedure Name Priority Date/Time Associated Diagnosis Comments OUTSIDE LAB (SCAN ORDER) 11/18/2024 IMAGE GENERIC 10/28/2024 MG DIAG W HA RT DIGI Routine 09/30/2024 2:52 PM SEARCH DIRECTOR Abnormal mammogram US BREAST RT BIRAD LTD Routine 09/30/2024 2:50 PM SEARCH DIRECTOR Abnormal mammogram COLLECTION VENOUS BLOOD VENIPUNCTURE Routine 09/22/2024 8:53 AM SEARCH DIRECTOR Vitamin B 12 deficiency Age-related osteoporosis without current pathological fracture VITAMIN B12 / FOLATE Routine 09/22/2024 8:46 AM SEARCH DIRECTOR Vitamin B 12 deficiency VITAMIN D, 25 OH Routine 09/22/2024 7:46 AM SEARCH DIRECTOR Age-related osteoporosis without current pathological fracture IMAGE GENERIC 09/02/2024 COLOGUARD (SCAN ORDER) Routine 06/11/2019 from Last 3 Months or Most Recently Relevant to Health Maintenance Results * OUTSIDE LAB (SCAN ORDER) (11/18/2024) 11/18/2024 [facility] Group Scanned SCANNING Final Resu lt * IMAGE GENERIC (10/28/2024) Only the most recent of2 resultswithin the time period is included. Anatomical Region Laterality Modality Other 10/28/2024 [facility] Group Scanned SCANNING Final Resu lt * MG DIAG W HA RT DIGI (09/30/2024 2:52 PM SEARCH DIRECTOR) Anatomical Region Laterality Modality Breast Right Mammography, Rad iographic Imaging 09/30/2024 2:45 PM SEARCH DIRECTOR Addenda Addendum by Timmy Dockery MD on 10/02/2024 12:22 PM SEARCH DIRECTOR [facility] [address] [place] [address] Although present findings are highly suspicious for decreasing traumatic oil cysts, return to annual screening mammogram in 6 months is highly recommended to ensure continued stability or continued decrease size of this finding. This was discussed with the patient by me in person at time of examination. Ordered By: LEYLA MONTEMAYOR Interpreted By: Timmy Dockery MD, 10/02/2024 12:18 PM Impressions 09/30/2024 2:51 PM SEARCH DIRECTOR =====IMPRESSION:===== Findings highly suspicious for decreasing traumatic oil cysts. Assessment: ACR BI-RADS 2 - BENIGN FINDING(S) Recommendation: 1Return to year screen in 6 months Bilateral COMMENTS: Patient was informed of these findings, including return to annual screening in 6 months. Patient instructed to return for further evaluation if she notices any increase in size of palpable abnormality in the future. Examination: Breast ultrasound Findings: See combined report above. Comments: Ordered By: LEYLA MONTEMAYOR Interpreted By: Timmy Dockery MD, 09/30/2024 2:45 PM Narrative 09/30/2024 2:51 [place] [address] Examination: Right diagnostic mammogram with 3-D tomosynthesis and ultrasound. [id number] Exam Date/Time: 09/30/2024 2:20 PM Reason For Exam: Follow-up possible traumatic oil cyst. Comparison: 02/26/2024, 07/30/2022, 04/26/2021 Technique: Left digital diagnostic mammography with 3-D tomosynthesis and ultrasound was performed. This study was read with the assistance of a computer-aided detection system. TISSUE DENSITY: There are scattered areas of fibroglandular density. FINDINGS: Superficial mass on mammography is again seen. Decrease in size from prior study is noted. This has smooth borders. Slight increase in density is noted, likely due to decreasing size. No spiculation is seen. Ultrasound examination shows abnormality is at the 7:00 position, 3 cm from the nipple. This measures 0.3 x 0.3 x 0.3 cm. Subtle decrease in size on ultrasound is also noted. Findings highly suspicious for traumatic oil cysts. Patient also states that she thinks it is getting smaller by palpation. No new finding is seen. us Leyla Montemayor MD MAMMO Edited Resu lt - Final * US BREAST RT BIRAD LTD (09/30/2024 2:50 PM SEARCH DIRECTOR) Anatomical Region Laterality Modality Breast Right Ultrasound 09/30/2024 2:45 PM SEARCH DIRECTOR Addenda Addendum by Timmy Dockery MD on 10/02/2024 12:22 PM SEARCH DIRECTOR [facility] [address] [place] [address] Although present findings are highly suspicious for decreasing traumatic oil cysts, return to annual screening mammogram in 6 months is highly recommended to ensure continued stability or continued decrease size of this finding. This was discussed with the patient by me in person at time of examination. Ordered By: LEYLA MONTEMAYOR Interpreted By: Timmy Dockery MD, 10/02/2024 12:18 PM Impressions 09/30/2024 2:51 PM SEARCH DIRECTOR =====IMPRESSION:===== Findings highly suspicious for decreasing traumatic oil cysts. Assessment: ACR BI-RADS 2 - BENIGN FINDING(S) Recommendation: 1Return to year screen in 6 months Bilateral COMMENTS: Patient was informed of these findings, including return to annual screening in 6 months. Patient instructed to return for further evaluation if she notices any increase in size of palpable abnormality in the future. Examination: Breast ultrasound Findings: See combined report above. Comments: Ordered By: LEYLA MONTEMAYOR Interpreted By: Timmy Dockery MD, 09/30/2024 2:45 PM Narrative 09/30/2024 2:51 PM SEARCH DIRECTOR [facility] [address] [place] [address] Examination: Right diagnostic mammogram with 3-D tomosynthesis and ultrasound. [id number] Exam Date/Time: 09/30/2024 2:20 PM Reason For Exam: Follow-up possible traumatic oil cyst. Comparison: 02/26/2024, 07/30/2022, 04/26/2021 Technique: Left digital diagnostic mammography with 3-D tomosynthesis and ultrasound was performed. This study was read with the assistance of a computer-aided detection system. TISSUE DENSITY: There are scattered areas of fibroglandular density. FINDINGS: Superficial mass on mammography is again seen. Decrease in size from prior study is noted. This has smooth borders. Slight increase in density is noted, likely due to decreasing size. No spiculation is seen. Ultrasound examination shows abnormality is at the 7:00 position, 3 cm from the nipple. This measures 0.3 x 0.3 x 0.3 cm. Subtle decrease in size on ultrasound is also noted. Findings highly suspicious for traumatic oil cysts. Patient also states that she thinks it is getting smaller by palpation. No new finding is seen. Procedure Note Timmy Dockery MD - 09/30/2024 [facility] [address] [place] [address] Examination: Right diagnostic mammogram with 3-D tomosynthesis andultrasound. [id number] Exam Date/Time: 09/30/2024 2:20 PM Reason For Exam: Follow-up possible traumatic oil cyst. Comparison: 02/26/2024, 07/30/2022, 04/26/2021 Technique: Left digital diagnostic mammography with 3-D tomosynthesis andultrasound was performed. This study was read with the assistance of acomputer-aided detection system. TISSUE DENSITY: There are scattered areas of fibroglandular density. FINDINGS: Superficial mass on mammography is again seen. Decrease in sizefrom prior study is noted. This has smooth borders. Slight increase indensity is noted, likely due to decreasing size. No spiculation is seen.Ultrasound examination shows abnormality is at the 7:00 position, 3 cmfrom the nipple. This measures 0.3 x 0.3 x 0.3 cm. Subtle decrease in sizeon ultrasound is also noted. Findings highly suspicious for traumatic oilcysts. Patient also states that she thinks it is getting smaller bypalpation. No new finding is seen. =====IMPRESSION:===== Findings highly suspicious for decreasing traumatic oil cysts. Assessment: ACR BI-RADS 2 - BENIGN FINDING(S) Recommendation: 1Return to year screen in 6 months Bilateral COMMENTS: Patient was informed of these findings, including return toannual screening in 6 months. Patient instructed to return for furtherevaluation if she notices any increase in size of palpable abnormality inthe future. Examination: Breast ultrasound Findings: See combined report above. Comments: Ordered By: LEYLA MONTEMAYOR Interpreted By: Timmy Dockery MD, 09/30/2024 2:45 PM Leyla Montemayor MD ULTRASOUND Edited Resu lt - Final * VITAMIN B12 / FOLATE (09/22/2024 8:46 AM SEARCH DIRECTOR) VITAMIN B12 S/P/B 920 193 - 986 PG/ML 09/22/2024 3:20 PM SEARCH DIRECTOR [facility] FOLATE 17.8 8.6 - 58.9 NG/ML 09/22/2024 3:20 PM SEARCH DIRECTOR [facility] 09/22/2024 8:46 AM SEARCH DIRECTOR Leyla Montemayor MD LABORATORY Final Resul t [facility] [address] [place] [address], [place] [phone] * VITAMIN D, 25 OH (09/22/2024 7:46 AM SEARCH DIRECTOR) VITAMIN D 25 HYDROXY S/P/B 49 30 - 100 NG/ML 09/22/2024 3:05 PM SEARCH DIRECTOR [facility] Comment: INTERPRETATION DEFICIENT <20 INSUFFICIENT 20-29 SUFFICIENT 30-100 09/22/2024 7:46 AM SEARCH DIRECTOR Leyla Montemayor MD LABORATORY Final Resul t [facility] [address] [place] [address], * COLOGUARD (SCAN) (06/11/2019) COLOGUARD NEG Stool specimen (specimen) 06/11/2019 us Documents Scanned SCANNING Edited Result - Final from Last 3 Months or Most Recently Relevant to Health Maintenance Insurance [address] [facility] [address] Care Teams Field Application Engineer Relationship Specialty [place] [address] [place] [address] PCP - General FAMILY PRACTICE 09/19/18 Vance Jack MD [facility] [address] [place] [address] [place] Machine Icer INTERVENTIONAL CARDIOLOGY 01/12/19
--- OUTSIDE RECORDS SUMMARY | 2024-11-26 01:59 | XMS_ITS | Encounter Summary ---
Author Organization [facility] Address [address] [place] [address] Care Team Providers Care Fitter Helper Name Role Phone Kaushik Montemayor MD Primary Care Provider [phone] Vance Jack MD Unavailable [phone] Encounter Details Date Type Department Care Team (Late st Contact Info) Description 03/24/2024 liveBooks Message Enc [facility] Medical [facility] [address] [place] [address] Jose Enamorado PA [address] [place] [address] Thank you! 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, 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 Not on file Not o n file documented as of this encounter Plan of Treatment Not on file documented as of this encounter Visit Diagnoses Not on filedocumented in this encounter Additional Health Concerns Assessment Noted Time PHQ-9 Depression Total Score: 0 12/05/19 22 8:05 AM CDT documented as of this encounter Care Teams Fitter Helper Relationship Specialty Start [place] [address] [place] [address] PCP - General FAMILY PRACTICE 09/19/18 Vance Jack MD [facility] [address] [place] [address] [place] Tax Record Clerk INTERVENTIONAL CARDIOLOGY 01/12/19 documented as of this encounter
--- OUTSIDE RECORDS SUMMARY | 2024-11-26 01:59 | XMS_ITS | Encounter Summary ---
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, 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 Not on file Not o n file documented as of this encounter Plan of Treatment Not on file documented as of this encounter Procedures Procedure Name Priority Date/Time Associated Diagnosis Comments OUTSIDE LAB (SCAN ORDER) 11/18/2024 documented in this encounter Results * OUTSIDE LAB (SCAN ORDER) (11/18/2024) 11/18/2024 us Doc Med Group Scanned SCANNING Final Resu lt documented in this encounter Visit Diagnoses Not on filedocumented in this encounter Additional Health Concerns Assessment Noted Time PHQ-9 Depression Total Score: 10 024 6:56 AM CDT documented as of this encounter Care Teams Registered Dietetic Technician Relationship Specialty Start [place] [address] [place] [address] PCP - General FAMILY PRACTICE 09/19/18 Vance Jack MD [facility] [address] [place] [address] Supervisor INTERVENTIONAL CARDIOLOGY 01/12/19 documented as of this encounter
--- OUTSIDE RECORDS SUMMARY | 2024-11-26 01:59 | XMS_ITS | Encounter Summary ---
Author Organization [facility] Care Team Providers Care Director Distribution Name Role Phone Williams Escoto MD Primary Care Provider Williams Escoto MD Primary Care Provider Kaushik Montemayor MD Primary Care Provider [phone] Vance Jack MD Unavailable [phone] Geeta Aparicio Unavailable [phone] Encounter Details Date Type Department Care Team (Latest Contact Info) Description 11/18/2017 Orders Only [facility]INCON[facility] Provider, MD Florentin [address] [place] [address] Social History Tobacco Use Types Packs/Day Years Used Date Smoking Tobacco: Never Assessed Comments Unknown Sex and Gender Information Value Date Recorded Sex Assigned at Not on file 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 Gender Identity Not on file Sexual [...] on filedocumented in this encounter Care Teams Director Distribution Relationship Specialty Start Date End Date Williams Escoto MD PCP - General 10/27/18 12/22/18 Williams Escoto MD PCP - General 10/03/18 10/26/18 [place] [address] [place] [id number] PCP - General Family Practice 12/23/18 [place] [address] [id number] Referring Physician Internal Medicine 04/02/22 [place] [address] [facility] [address] [place] [phone] Physician Finishing Frame Runner Orthopedic Surgery 04/20/22 documented as of this encounter
--- NOTE | 2024-11-26 07:13 | WPDHPUPDATE1 ---
History and Physical Update Update Date/Time: 11/26/24 07:13 History and Physical has been reviewed, including an updated exam of the patient. There are NO changes in the patient's condition. Risks, benefits, and alternatives have been discussed and questions answered. Patient agrees to proceed with procedure.
[2024-11-26] MEDS: LACTATED RINGERS 1,000 ML 30 ML IV CONT ×2 (11:00→13:26)
[2024-11-26] MEDS: KETOROLAC 15 MG/ML VIAL (*BKC) IV PUSH (11:02)
[2024-11-26] MEDS: ACETAMINOPHEN 500 MG TABLET 1000 MG PO (11:02)
--- NOTE | 2024-11-26 11:10 | P.PNAN_ITS ---
Anes - Initial Pre Proc Eval Procedure: Operation Date: 11/26/24 12:30 Proposed Procedures p Left Foot Hammertoe Correction Toes Two and Five, Right Hammertoe Correction Toes Two, Three, Four and Five - Jared Roque MD Date/Time: 11/26/24 11:10 Surgeon: Jared Roque MD Pre Op Diagnosis: Harpreet Foot Hammertoes Patient Data Age: 63 Gender: F Height: 1.63 m Weight: 94 kg Allergies Allergy/AdvReac Type Severity Reaction Status Date / Time shellfish derived Allergy Severe Swelling Verified 11/16/24 13:46 of Lip/Tongue/Throat Penicillins Allergy Intermediate Hives Verified 11/16/24 13:46 Sulfa (Sulfonamide Allergy Unknown Rash Verified 11/16/24 13:46 Antibiotics) Shrimp Allergy Severe SWELLING, Uncoded 11/16/24 13:46 RASH Contrast Media Allergy Intermediate Rash Uncoded 11/16/24 13:46 Home Medications ?Medication ?Instructions ?Recorded ?Confirmed ?Type amitriptyline 100 mg tablet 300 mg PO QHS 03/07/21 11/16/24 History lurasidone 40 mg tablet (Latuda) 40 mg PO QHS 03/07/21 11/16/24 History pramipexole 0.75 mg tablet 0.75 mg PO QHS 03/07/21 11/16/24 History tramadol 50 mg tablet 50 mg PO Q6H PRN Pain 03/07/21 11/16/24 History folic acid 1 mg tablet 1 mg PO DAILY 12/04/21 11/16/24 History PREVAGEN 20 mg PO DAILY 11/16/24 11/16/24 History alprazolam 0.25 mg tablet (Xanax) 0.5 mg PO DAILY PRN anxiety 11/16/24 11/16/24 History cyanocobalamin (vitamin B-12) 1,000 mcg IM MONTHLY 11/16/24 11/16/24 History 1,000 mcg/mL injection solution ferrous sulfate 325 mg (65 mg 325 mg PO DAILY 11/16/24 11/16/24 History iron) tablet (Katherine-Time) ginkgo biloba 40 mg tablet 80 mg PO DAILY 11/16/24 11/16/24 History magnesium glycinate 100 mg (as 270 mg PO HS 11/16/24 11/16/24 History glycinate) tablet (Mag Glycinate) semaglutide 2 mg/dose (8 mg/3 mL) 0.5 mg subcut WEEKLY 11/16/24 11/16/24 History subcutaneous pen injector (Ozempic) vitamin D3 250 mcg (10,000 1 cap PO DAILY 11/16/24 11/16/24 History unit)-vitamin K2 45 mcg capsule hydrocodone 7.5 mg-acetaminophen 1 tablet PO Q6H PRN pain #30 tabs 11/26/24 Rx 325 mg tablet ondansetron 8 mg disintegrating 8 mg PO Q8H PRN nausea and 11/26/24 Rx tablet vomiting #10 tabs polyethylene glycol 3350 17 gram 17 g PO DAILY PRN constipation #14 11/26/24 Rx oral powder packet ea sennosides 8.6 mg-docusate sodium 1 tab-cap PO BID PRN constipation 11/26/24 Rx 50 mg tablet (Senna with Docusate #20 tabs Sodium) Patient hx anesthesia problems: none Family hx anesthesia problems: none Results Review: All pre-operative results and documents have been reviewed as part of the pre- operative evaluation. [facility] Past Medical History Medical History (Updated 10/28/24 @ 10:11 by Jared Roque MD) Acquired hammertoe of right foot Closed fracture of fifth metatarsal bone of left foot Encounter for postoperative care PONV (postoperative nausea and vomiting) Hx of supraventricular tachycardia Wears glasses Depression Acquired hammertoe of left foot Morbid obesity Bipolar 1 disorder, depressed Arthritis Anxiety Anemia Surgical History Surgical History History of x2 History of carpal tunnel release left History of gastric bypass History of intestinal surgery bowel obstruction x2 H/O foot surgery Left 2nd hammertoe correction 06/23/15 Dr. Roque H/O hernia repair umbilical hernia repair History of cholecystectomy History of knee surgery Right TKA 2019 Dr. Escoto Left TKA Poly replacement 2020 Dr. Escoto History of hip surgery Left TAISHA 2018 Dr. Escoto Right TAISHA Family History Family History Father Family history of Alzheimer's disease Other Cerebrovascular accident Depression Family history of Parkinson's disease Family history of arthritis Family history of malignant neoplasm Family history of mental disorder Gallbladder cancer Social History Social History Social History: caffeine use Years smoked: 15 Smoking status: Former smoker Tobacco type: cigarettes Smoking end date: 08/26/92 Additional smoking assessment comments: QUIT 1990 Alcohol intake: current Drinks per week: 1 Substance use: never Substance use type: does not use Living arrangements: with family Occupation/Education: retired Gender identity (if verbalized by the patient): Female Spiritual care concerns: No Anes - Eval Final PreProcedure Day of Procedure 11/26/24 11:10 Patient weight: obese Heart: regular rate and rhythm Lungs: clear to auscultation Airway: Mallampati scale class II Neurological: alert and oriented Last oral intake: >/= 8 hours ASA classification: III Emergent: no Anesthetic plan: proceed Anesthesia type and monitoring: general LMA and standard monitoring Results Review: All pre-operative results and documents have been reviewed as part of the pre- operative evaluation. Informed Consent: The patient's anesthetic plan and its attendant risks and benefits were discussed with the patient/family/POA. Questions were solicited and answers provided to the satisfaction of the patient/family/POA.
[2024-11-26] MEDS: ceFAZolin 2 GM/D5W 50 ML 2 GM/50 ML BAG IVPB (11:55)
[2024-11-26] MEDS: BUPivacaine HCL 0.5% 10 ML AMP 30 ML INFILTRATE (12:57)
--- NOTE | 2024-11-26 13:36 | P.OP_ITS ---
Procedure Note - Detailed Date of Procedure 11/26/24 Pre-op Diagnosis Harpreet Foot Hammertoes Post-op Diagnosis Same Procedure Performed Left 2nd crossover toe reconstruction with soft tissue, 4th and 5th toe flexor tenotomy. Right foot 2nd and 3rd hammertoe correction with proximal interphalangeal arthrodesis, 4th and 5th toe flexor tenotomy. Surgeon Jared Roque MD Electric Furnace Operator 1st insurance account assistant Anesthesia General Indications 63-year-old woman with bilateral toe deformity which is unrelieved with conservative measures. Presents for operative treatment. She has pain with shoe wear and activity. She is at pre ulcer to condition due to the wearing against the shoe. Description of Procedure Patient identified in the preoperative holding. Informed consent given. Operative extremity marked. Patient received intravenous antibiotics. Patient brought to the operating room where underwent general anesthetic by anesthesia team. Positioned supine on operating room table. Time-out performed confirming the patient, site of the surgery and the plan. Both feet were prepped and draped usual sterile surgical fashion and a ChloraPrep skin solution. Left foot addressed 1st. Left foot and ankle exsanguinated and Esmarch bandage secured at the ankle as a tourniquet. Dorsal longitudinal incision made over the 2nd toe metatarsophalangeal joint with 15 blade knife. Hemostasis controlled electrocautery. Dorsal capsulotomy performed. Medial and lateral collateral ligaments released off of the proximal phalanx. Contracted lateral capsule then released. Plantar exostosis removed with rongeur from the metatarsal head. Metatarsophalangeal joint then reduced and fixed with a 0.045 in K-wire through the 2nd toe. Alignment checked with image intensification. Wound thoroughly irrigated. Capsule closed with 3 O Monocryl interrupted suture. Skin repaired with 4 O nylon interrupted suture. 4th toe then addressed. The toe was extended and 15 blade knife used to percutaneously released flexor tendon. 5th toe addressed in same similar fashion with extension and 15 blade knife used to percutaneously release flexor tendon. Wounds irrigated and skin closed with 4-0 nylon interrupted suture. Esmarch tourniquet released and good capillary refill noted in toes. Sterile dressing applied. We then addressed the right foot. Right foot and ankle exsanguinated and Esmarch bandage secured at the ankle as a tourniquet. Dorsal longitudinal incision made over the 2nd toe proximal interphalangeal joint with 15 blade knife. Hemostasis controlled electrocautery. Dorsal capsulotomy performed including the extensor tendon. Medial and lateral collateral ligaments released off of the proximal phalanx. Distal end of the proximal phalanx and the proximal end of the middle phalanx resected with bone cutter and rongeur. Any prominent bone or spurring removed with rongeur. Joint thoroughly irrigated with antibiotic solution. Joint then prepared, reduced and fixed with 0.045in. k wire. Alignment checked with image intensification. Wound thoroughly irrigated. Capsule closed with 3 O Monocryl interrupted suture. Skin repaired with 4 O nylon interrupted suture. 3rd toe then addressed in similar fashion. Dorsal longitudinal incision made over the proximal interphalangeal joint with 15 blade knife. The joint was prepared in the same way and reduced and pinned with a 0.045 in K-wire. Image intensification confirmed alignment. Wound irrigated and closed with 3-0 Monocryl interrupted suture for the capsule and 4- 0 nylon interrupted suture for the skin. 4th toe then addressed. The toe was extended and 15 blade knife used to percutaneously released flexor tendon. 5th toe addressed in same similar fashion with extension and 15 blade knife used to percutaneously release flexor tendon. Wounds irrigated and skin closed with 4-0 nylon interrupted suture. Esmarch tourniquet released and good capillary refill noted in toes. Sterile dressing applied. Patient then awoke from anesthesia, extubated and taken to recovery room stable condition. All sponge needle and instrument counts correct at the end of the case. Implants 0.045 in K-wire x3 Estimated Blood Loss 5 Tourniquet Time Total Tourniquet Time: 30 Drains No Packing No Pathology None sent Complications None Condition Stable Disposition PACU [facility] Billing Surgery - Charge Forward: Surgery Billing (78343 T1, 67479 X 2 T6 T7, 97309 X 4 T3 T4 T8 T9)
[2024-11-26] MEDS: fentaNYL CITRATE INJ (*CRX) 100 MCG/2 ML VIAL 25 MCG IV PUSH ×4 (13:52→14:10)
[2024-11-26] MEDS: oxyCODONE HCL (*CRX) 5 MG TAB IR PO (14:52)
== END 2024-11-26 15:37 | disposition home or self-care (01) ==
PROVIDERS: PCP Family Medicine; Visit Provider Orthopaedic Surgery
PROC: (CPT 28750; principal; 2024-11-26 12:30)
DX: M20.42 Other hammer toe(s) (acquired), left foot (principal); M20.41 Other hammer toe(s) (acquired), right foot; Z87.891 Personal history of nicotine dependence; E66.9 Obesity, unspecified; Z68.35 Body mass index [BMI] 35.0-35.9, adult
CPT/HCPCS: 28285 ×2; 28313; 28010 ×4; 99199; A9270; C1713; J0690; J1100; J1885; J2003; J2250; J2405; J2704; J3010; J7120

== ENCOUNTER 2025-04-12 08:37 | Outpatient (CLI) | payer BC, SELFPAY ==
--- OUTSIDE RECORDS SUMMARY | 2025-04-12 08:58 | XMS_ITS | Encounter Summary ---
Author Organization [facility] Facility Care Team Providers Care Piccolo Mechanic Name Role Phone Williams Escoto MD Primary Care Provider Williams Escoto MD Primary Care Provider Kaushik Montemayor MD Primary Care Provider [phone]- [phone] Vance Jack MD Unavailable [phone] Geeta Aparicio Unavailable [phone] Encounter Details Date Type Department Care Team (Latest Contact Info) Description 11/21/2017 Orders Only [facility] CLINCONV Provider, MD Florentin [address] [place] [address] Social History Tobacco Use Types Packs/Day Years Used Date Smoking Tobacco: Never Assessed Comments Unknown Sex and Gender Information Value Date Recorded Sex Assigned at Not on file Legal Sex Female 10:29 AM INTEGRATION AIDE Gender Identity Not on file Sexual Orientation [...] on filedocumented in this encounter Care Teams Piccolo Mechanic Relationship Specialty Start Date End Date Williams Escoto MD PCP - General 10/27/18 12/22/18 Williams Escoto MD PCP - General 10/03/18 10/26/18 [place] [id number] [place] [address] [id number] PCP - General Family Practice 12/23/18 [place] [id number] [id number] Referring Physician Internal Medicine 04/02/22 [place] [id number] [email or web address] [address] [place] [address] [phone] Physician Manager Employment Orthopedic Surgery 04/20/22 documented as of this encounter
--- OUTSIDE RECORDS SUMMARY | 2025-04-12 08:58 | XMS_ITS | Encounter Summary ---
Author Organization [facility] Facility Care Team Providers Care Customs And Immigration Officer Name Role Phone Williams Escoto MD Primary Care Provider Williams Escoto MD Primary Care Provider Kaushik Montemayor MD Primary Care Provider [phone]- [phone] Vance Jack MD Unavailable [phone] Geeta Aparicio Unavailable [phone] Encounter Details Date Type Department Care Team (Latest Contact Info) Description 09/24/2018 Orders Only [facility] CLINCONV Provider, MD Florentin [address] [place] [address] Social History Tobacco Use Types Packs/Day Years Used Date Smoking Tobacco: Never Assessed Comments Unknown Sex and Gender Information Value Date Recorded Sex Assigned at Not on file Legal Sex Female 10:29 AM AUDIO VISUAL PROJECT MANAGER Gender Identity Not on file Sexual Orientation Not on file documented as of this encounter Plan of Treatment Not on file documented as of this encounter Procedures Procedure Name Priority Date/Time Associated Diagnosis Comments PROCEDURE - RESULT 09/24/2018 12 :00 AM AUDIO VISUAL PROJECT MANAGER documented in this encounter Results * PROCEDURE - RESULT (09/24/2018 12:00 AM AUDIO VISUAL PROJECT MANAGER) Narrative 09/24/2018 12:00 AM AUDIO VISUAL PROJECT MANAGER Ordered by an unspecified provider. us Historical Provider Final Res ult documented in this encounter Visit Diagnoses Not on filedocumented in this encounter Care Teams Customs And Immigration Officer Relationship Specialty Start Date End Date Williams Escoto MD PCP - General 10/27/18 12/22/18 Williams Escoto MD PCP - General 10/03/18 10/26/18 [place] [address] [phone] PCP - General Family Practice 12/23/18 [place] [id number] [phone] Referring Physician Internal Medicine 04/02/22 [place] [id number] [address] [phone] Physician Package Clerk Orthopedic Surgery 04/20/22 documented as of this encounter
--- OUTSIDE RECORDS SUMMARY | 2025-04-12 08:58 | XMS_ITS | Encounter Summary ---
Author Organization [facility] Facility Care Team Providers Care Oil Field Caser Name Role Phone Williams Escoto MD Primary Care Provider Williams Escoto MD Primary Care Provider Kaushik Montemayor MD Primary Care Provider [phone]- [phone] Vance Jack MD Unavailable [phone] Geeta Aparicio Unavailable [phone] Encounter Details Date Type Department Care Team (Latest Contact Info) Description 11/18/2017 Orders Only [facility] CLINCONV Provider, MD Florentin [address] [place] [address] Social History Tobacco Use Types Packs/Day Years Used Date Smoking Tobacco: Never Assessed Comments Unknown Sex and Gender Information Value Date Recorded Sex Assigned at Not on file Legal Sex Female 10:29 AM SCRAPER LOADER OPERATOR Gender Identity Not on file Sexual [...] on filedocumented in this encounter Care Teams Oil Field Caser Relationship Specialty Start Date End Date Williams Escoto MD PCP - General 10/27/18 12/22/18 Williams Escoto MD PCP - General 10/03/18 10/26/18 [place] [id number] [place] [address] [phone] PCP - General Family Practice 12/23/18 [place] [address] [phone] Referring Physician Internal Medicine 04/02/22 [place] [id number] [employer] [address] [place] [address] [phone] Physician Bricklayer Orthopedic Surgery 04/20/22 documented as of this encounter
--- OUTSIDE RECORDS SUMMARY | 2025-04-12 08:58 | XMS_ITS | Encounter Summary ---
Author Organization [facility] Address [address] [place] [address] Phone Care Team Providers Care Extractor Tender Raw Stock Name Role Phone Kaushik Montemayor MD Primary Care Provider [phone] Barrett Tello MD Unavailable [phone] Reason for Visit * Reason Comments Medication Refill Encounter Details Date Type Department Care Team (Late st Contact Info) Description 08/17/2023 Refill [facility] [address] [place] [address] Barrett Tello MD [address] [place] [address] Medication Refill Social History Tobacco [...] request from pharmacy. Please fill if appropriate. NING OPERATOR documented in this encounter Plan of Treatment Upcoming Encounters Date Type Department Care Team (Late st Contact Info) Description 05/05/2025 9:00 AM CDT Office Visit [facility] [address] [phone] Barrett Tello MD [address] [place] [phone] documented as of this encounter Visit Diagnoses [...] documented as of this encounter Care Teams Extractor Tender Raw Stock Relationship Specialty Start [place] [address] [place] [address] PCP - General Family Medicine 01/17/21 [place] [address] [place] [address] Consulting Physician Oncology 01/17/21 documented as of this encounter
--- OUTSIDE RECORDS SUMMARY | 2025-04-12 08:58 | XMS_ITS | Encounter Summary ---
Author Organization [facility] Facility Care Team Providers Care Special Education Inclusion Teacher Name Role Phone Williams Escoto MD Primary Care Provider Williams Escoto MD Primary Care Provider Kaushik Montemayor MD Primary Care Provider [phone] Vance Jack MD Unavailable [phone] Geeta Aparicio Unavailable [phone] Encounter Details Date Type Department Care Team (Latest Contact Info) Description 10/25/2017 Orders Only [facility] CLINCONV Provider, MD Florentin [address] [place] [address] Social History Tobacco Use Types Packs/Day Years Used Date Smoking Tobacco: Never Assessed Comments Unknown Sex and Gender Information Value Date Recorded Sex Assigned at Not on file Legal Sex Female 10:29 AM FOLDER MACHINE Gender Identity Not on file Sexual Orientation Not on file documented as of this encounter Plan of Treatment Not on file documented as of this encounter Procedures Procedure Name Priority Date/Time Associated Diagnosis Comments PROCEDURE - RESULT 10/25/2017 12 :00 AM FOLDER MACHINE documented in this encounter Results * PROCEDURE - RESULT (10/25/2017 12:00 AM FOLDER MACHINE) Narrative 10/25/2017 12:00 AM FOLDER MACHINE Ordered by an unspecified provider. us Historical Provider Final Res ult documented in this encounter Visit Diagnoses Not on filedocumented in this encounter Care Teams Special Education Inclusion Teacher Relationship Specialty Start Date End Date Williams Escoto MD PCP - General 10/27/18 12/22/18 Williams Escoto MD PCP - General 10/03/18 10/26/18 [place] [address] [phone] PCP - General Family Practice 12/23/18 [place] [address] [phone] Referring Physician Internal Medicine 04/02/22 [place] [id number] [phone] Physician Hot Walker Orthopedic Surgery 04/20/22 documented as of this encounter
--- OUTSIDE RECORDS SUMMARY | 2025-04-12 08:58 | XMS_ITS | Clinical Summary ---
Author Organization [facility] Address [address] [place] [address] Care Team Providers Care Client Portfolio Manager Name Role Phone Unavailable Primary Care Provider Unavailabl e Source Comments [facility],non-owned Affiliates and Associated Physician Practices is amultiple site organization consisting of ambulatory clinics and hospital sitesin [place], [place], [place] and [place]. This disclosure is being madepursuant to the Care Everywhere program and may not contain all information available regarding this patient. Last updated [facility] [employer] Social History Tobacco Use Types Packs/Day Years Used Date Smoking Tobacco: Never Assessed Comments Unknown Sex and Gender Information Value Date Recorded Sex Assigned at Not on file Legal Sex Female 6:25 AM CREATIVE MANAGER Gender Identity Not on file Sexual [...] COLON CA SCREENING 1961 LIPID TESTING 1961 HIV SCREENING 1976 HEPATITIS C SCREENING 12/15/1979 DTAP/TDAP/TD VACCINES (1 - Tdap) 1980 PAP SMEAR 1982 PNEUMOCOCCAL VACCINE 50+ (1 of 1 - PCV) 12/20/2011 ZOSTER VACCINE (1 of 2) 12/20/2011 COVID-19 VACCINE (4 - 2023- season) 2024 06/21/2021, 10/27/2020, 09/29/2020 MAMMOGRAM 07/30/2024 07/30/2022 DEPRESSION SCREENING 08/26/2024 INFLUENZA VACCINE (#1) 2025 3, 06/15/2022, 06/05/2021, Additional history exists Respiratory Syncytial [...] patient's age to complete this topic Insurance [facility]
--- OUTSIDE RECORDS SUMMARY | 2025-04-12 08:58 | XMS_ITS | Encounter Summary ---
Author Organization [facility] Facility Care Team Providers Care Desolderer Name Role Phone Williams Escoto MD Primary Care Provider Williams Escoto MD Primary Care Provider Kaushik Montemayor MD Primary Care Provider +- [phone] Vance Jack MD Unavailable [phone] Geeta Aparicio Unavailable [phone] Encounter Details Date Type Department Care Team (Latest Contact Info) Description 12/23/2017 Orders Only [facility] CLINCONV Provider, MD Florentin [address] [place] [address] Social History Tobacco Use Types Packs/Day Years Used Date Smoking Tobacco: Never Assessed Comments Unknown Sex and Gender Information Value Date Recorded Sex Assigned at Not on file Legal Sex Female 10:29 AM ROBOTIC WELD TECHNICIAN Gender Identity Not on file Sexual Orientation [...] on filedocumented in this encounter Care Teams Desolderer Relationship Specialty Start Date End Date Williams Escoto MD PCP - General 10/27/18 12/22/18 Williams Escoto MD PCP - General 10/03/18 10/26/18 [place] [address] [place] [address] [id number] PCP - General Family Practice 12/23/18 [place] [address] [place], [place] [phone] Referring Physician Internal Medicine 04/02/22 [place] [address] [place] [address] [phone] Physician Air Pollution Specialist Orthopedic Surgery 04/20/22 documented as of this encounter
--- OUTSIDE RECORDS SUMMARY | 2025-04-12 08:58 | XMS_ITS | Encounter Summary ---
Author Organization [facility] Facility Care Team Providers Care Search Marketing Specialist Name Role Phone Williams Escoto MD Primary Care Provider Williams Escoto MD Primary Care Provider Kaushik Montemayor MD Primary Care Provider +- [phone] Vance Jack MD Unavailable [phone] Geeta Aparicio Unavailable [phone] Encounter Details Date Type Department Care Team (Latest Contact Info) Description 10/10/2016 Orders Only [facility] CLINCONV Provider, MD Florentin [address] [place] [address] Social History Tobacco Use Types Packs/Day Years Used Date Smoking Tobacco: Never Assessed Comments Unknown Sex and Gender Information Value Date Recorded Sex Assigned at Not on file Legal Sex Female 10:29 AM PARTS ANALYST Gender Identity Not on file Sexual Orientation Not on file documented as of this encounter Plan of Treatment Not on file documented as of this encounter Procedures Procedure Name Priority Date/Time Associated Diagnosis Comments PROCEDURE - RESULT 10/10/2016 12 :00 AM PARTS ANALYST documented in this encounter Results * PROCEDURE - RESULT (10/10/2016 12:00 AM PARTS ANALYST) Narrative 10/10/2016 12:00 AM PARTS ANALYST Ordered by an unspecified provider. us Historical Provider Final Res ult documented in this encounter Visit Diagnoses Not on filedocumented in this encounter Care Teams Search Marketing Specialist Relationship Specialty Start Date End Date Williams Escoto MD PCP - General 10/27/18 12/22/18 Williams Escoto MD PCP - General 10/03/18 10/26/18 [place] [address] [phone] PCP - General Family Practice 12/23/18 [place] [address] [phone] Referring Physician Internal Medicine 04/02/22 [place] [address] [phone] Physician [employer] Orthopedic Surgery 04/20/22 documented as of this encounter
--- OUTSIDE RECORDS SUMMARY | 2025-04-12 08:58 | XMS_ITS | Encounter Summary ---
Author Organization [facility] Facility Care Team Providers Care Hide Splitter Name Role Phone Williams Escoto MD Primary Care Provider Williams Escoto MD Primary Care Provider Kaushik Montemayor MD Primary Care Provider +- [phone] Vance Jack MD Unavailable [phone] Geeta Aparicio Unavailable [phone] Encounter Details Date Type Department Care Team (Latest Contact Info) Description 12/09/2017 Orders Only [facility] CLINCONV Provider, MD Florentin [address] [place] [address] Social History Tobacco Use Types Packs/Day Years Used Date Smoking Tobacco: Never Assessed Comments Unknown Sex and Gender Information Value Date Recorded Sex Assigned at Not on file Legal Sex Female 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 Gender Identity Not on file Sexual Orientation [...] on filedocumented in this encounter Care Teams Hide Splitter Relationship Specialty Start Date End Date Williams Escoto MD PCP - General 10/27/18 12/22/18 Williams Escoto MD PCP - General 10/03/18 10/26/18 [place] [address] [place] [address] [phone] PCP - General Family Practice 12/23/18 [place] [address] [phone] Referring Physician Internal Medicine 04/02/22 [place] [address] [facility] [address] [place] [address] [phone] Physician Bus And Rail Operator Orthopedic Surgery 04/20/22 documented as of this encounter
--- OUTSIDE RECORDS SUMMARY | 2025-04-12 08:58 | XMS_ITS | Clinical Summary ---
Author Organization [facility] Address [address] [place] [address] Care Team Providers Care Senior Sales Executive Name Role Phone Kaushik Montemayor MD Primary Care Provider [phone] Vance Jack MD Unavailable [phone] Geeta Aparicio Unavailable [phone] Allergies Active Allergy Reactions Criticality Noted Date [...] (04/02/2022): Added automatically from request for surgery [id number] Rotator cuff impingement syndrome of right shoul [...] istory of several blood transfusions Bipolar disorder RLS (restless legs syndrome) Wears contact lenses [...] pur e alcohol) Socially Social Connection and Isolation Panel Answer Date Recorded In a typical week, how many times do you talk on the phone with family, friends, or neighbors? More than three times a week 04/20/2022 How often do you get togethe r with friends or relatives? More than three times a week 04/20/2022 How often do you attend chur ch or taoism services? 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 Gender Identity Not on file Sexual Orientation [...] 10:18 AM CDT Height 165.1 cm (5' 5) 02/08/2023 10:18 AM CDT Body Mass Index [...] 2024 06/21/2021, 10/27/2020, 09/29/2020 Influenza Vaccine (#1) 2025 , 06/05/2021, 05/26/2019, Additional history exists DTaP/Tdap/Td Vaccine (2 - Td or Tdap) 06/15/2032 06/15/2022 Pneumococcal vaccine <65 Aged Out No longer eligible based on patient's age to complete this topic Medical Devices Implanted Type Area Quality Assurance Supervisor Final Device Identifier Shelf Expiration Date Model / Serial / Lot Knee Components Bilater al: Knee Hip Left: Hip [employer] G7 52mm Limit Hole Hip E Hemisphere Shell Acetabular Pps [id number] - [id number] Implanted:Qty: 1 on 04/19/2022 by Williams Escoto MD at [facility] Right: Hip [employer] [id number] 02/22/2032 [id number] / / [id number] [employer] Trilogy 6.5mm 30mm Self Tap Acetabular Cortical Screw Bone [id number] - [id number] Implanted:Qty: 1 on 04/19/2022 by Williams Escoto MD at [facility] Right: Hip [employer] [id number] 03/15/2032 [id number] / / [id number] [employer] Echo Bi-Metric 9mm 125mm Noncollar Reduce Proximal Profile Press [id number] - [id number] Implanted:Qty: 1 on 04/19/2022 by Williams Escoto MD at [facility] Right: Hip [employer] [id number] 08/03/2029 [id number] / / [id number] [employer] Liner Hip G7 Longevity High Wall 32mm E [id number] - [id number] Implanted:Qty: 1 on 04/19/2022 by Williams Escoto MD at [facility] Right: Hip [employer] [id number] 07/25/[id number] / / [id number] [employer] G7 32mm Type 1 Modular Hip Acetabular +3mm Offset Head Femoral [id number] - [id number] Implanted:Qty: 1 on 04/19/2022 by Williams Escoto MD at [facility] Right: Hip [employer] 06/08/2031 [id number] / / [id number] [place] [address] [employer] [place] [employer] [place] Advance Directives For more information, please contact: [phone] * Full Code (Latest Code Status on File) Date Activated Date Inactivated Comments 04/19/2022 4:00 PM 04/21/2022 4:29 PM Care Teams Senior Sales Executive Relationship Specialty Start [place] [address] [address] PCP - General Family Practice 12/23/18 [place] [address] [address] Referring Physician Internal Medicine 04/02/22 [place] [address] [facility] [address] [address] Physician Managed Services Sales Consultant Orthopedic Surgery 04/20/22
--- OUTSIDE RECORDS SUMMARY | 2025-04-12 08:58 | XMS_ITS | Encounter Summary ---
Author Organization [facility] Facility Care Team Providers Care Instructor Substitute Cosmetology Name Role Phone Williams Escoto MD Primary Care Provider Williams Escoto MD Primary Care Provider Kaushik Montemayor MD Primary Care Provider [phone]- [phone] Vance Jack MD Unavailable [phone] Geeta Aparicio Unavailable [phone] Encounter Details Date Type Department Care Team (Latest Contact Info) Description 10/01/2018 Orders Only [facility] CLINCON[facility] Provider, MD Florentin [address] [place] [address] Social History Tobacco Use Types Packs/Day Years Used Date Smoking Tobacco: Never Assessed Comments Unknown Sex and Gender Information Value Date Recorded Sex Assigned at Not on file Legal Sex Female 10:29 AM NON MORSE INTERCEPT TECHNICIAN Gender Identity Not on file Sexual Orientation Not on file documented as of this encounter Plan of Treatment Not on file documented as of this encounter Procedures Procedure Name Priority Date/Time Associated Diagnosis Comments PROCEDURE - RESULT 10/01/2018 12 :00 AM NON MORSE INTERCEPT TECHNICIAN documented in this encounter Results * PROCEDURE - RESULT (10/01/2018 12:00 AM NON MORSE INTERCEPT TECHNICIAN) Narrative 10/01/2018 12:00 AM NON MORSE INTERCEPT TECHNICIAN Ordered by an unspecified provider. us Historical Provider Final Res ult documented in this encounter Visit Diagnoses Not on filedocumented in this encounter Care Teams Instructor Substitute Cosmetology Relationship Specialty Start Date End Date Williams Escoto MD PCP - General 10/27/18 12/22/18 Williams Escoto MD PCP - General 10/03/18 10/26/18 [place] [address] [id number] PCP - General Family Practice 12/23/18 [place] [address] [phone] Referring Physician Internal Medicine 04/02/22 [place] [address] [phone] Physician Assistant Loan Processor Orthopedic Surgery 04/20/22 documented as of this encounter
--- OUTSIDE RECORDS SUMMARY | 2025-04-12 08:58 | XMS_ITS | Encounter Summary ---
Author Organization [facility] Address [address] [place] [address] Phone Care Team Providers Care Loan Examiner Name Role Phone Kaushik Montemayor MD Primary Care Provider [phone] Barrett Tello MD Unavailable [phone] Encounter Details Date Type Department Care Team (Late st Contact Info) Description 09/15/2021 Telephone [facility] [address] [address] Barrett Tello MD [address] [place] [address] Social History Tobacco Use Types Packs/Day [...] CDT Office Visit [facility] [place] [address] [place] [phone] Barrett Tello MD [address] [place] [address] documented as of this encounter Visit Diagnoses Not on filedocumented in this encounter Additional Health Concerns Assessment Noted Time PHQ-9 Depression Total Score: 0 06/22/20 21 9:19 AM CDT documented as of this encounter Care Teams Loan Examiner Relationship Specialty Start [place] [address] [place], [place] [phone] PCP - General Family Medicine 01/17/21 [place] [address] [place], [place] [phone] Consulting Physician Oncology 01/17/21 documented as of this encounter
--- OUTSIDE RECORDS SUMMARY | 2025-04-12 08:58 | XMS_ITS | Encounter Summary ---
Author Organization [facility] Facility Care Team Providers Care Slat Pickler Name Role Phone Williams Escoto MD Primary Care Provider Williams Escoto MD Primary Care Provider Kaushik Montemayor MD Primary Care Provider +- [phone] Vance Jack MD Unavailable [phone] Geeta Aparicio Unavailable [phone] Encounter Details Date Type Department Care Team (Latest Contact Info) Description 12/16/2017 Orders Only [facility] CLINCONV Provider, MD Florentin [address] [place] [address] Social History Tobacco Use Types Packs/Day Years Used Date Smoking Tobacco: Never Assessed Comments Unknown Sex and Gender Information Value Date Recorded Sex Assigned at Not on file Legal Sex Female 10:29 AM BURNER TENDER Gender Identity Not on file Sexual Orientation [...] on filedocumented in this encounter Care Teams Slat Pickler Relationship Specialty Start Date End Date Williams Escoto MD PCP - General 10/27/18 12/22/18 Williams Escoto MD PCP - General 10/03/18 10/26/18 [place] [address] [place] [phone] PCP - General Family Practice 12/23/18 [place] [address] [phone] Referring Physician Internal Medicine 04/02/22 [place] [address] [address] [place] [phone] Physician Distributing Clerk Orthopedic Surgery 04/20/22 documented as of this encounter
--- OUTSIDE RECORDS SUMMARY | 2025-04-12 08:58 | XMS_ITS | Encounter Summary ---
Author Organization [facility] Facility Care Team Providers Care Director Of Physical Security Name Role Phone Williams Escoto MD Primary Care Provider Williams Escoto MD Primary Care Provider Kaushik Montemayor MD Primary Care Provider [phone]- [phone] Vance Jack MD Unavailable [phone] Geeta Aparicio Unavailable [phone] Encounter Details Date Type Department Care Team (Latest Contact Info) Description 12/06/2017 Orders Only [facility] CLINCON[facility] Provider, MD Florentin [address] [place] [address] Social History Tobacco Use Types Packs/Day Years Used Date Smoking Tobacco: Never Assessed Comments Unknown Sex and Gender Information Value Date Recorded Sex Assigned at Not on file Legal Sex Female 10:29 AM 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 Gender Identity Not on file Sexual Orientation [...] filedocumented in this encounter Care Teams Director Of Physical Security Relationship Specialty Start Date End Date Williams Escoto MD PCP - General 10/27/18 12/22/18 Williams Escoto MD PCP - General 10/03/18 10/26/18 [place] [address] [place] [address] [phone] PCP - General Family Practice 12/23/18 [place] [address] [phone] Referring Physician Internal Medicine 04/02/22 [place] [address] [address] [place] [address] [phone] Physician Head Grower Orthopedic Surgery 04/20/22 documented as of this encounter
--- OUTSIDE RECORDS SUMMARY | 2025-04-12 08:58 | XMS_ITS | Encounter Summary ---
Author Organization [facility] Facility Care Team Providers Care Non Food Receiving Clerk Name Role Phone Williams Escoto MD Primary Care Provider Williams Escoto MD Primary Care Provider Kaushik Montemayor MD Primary Care Provider +- [phone] Vance Jack MD Unavailable [phone] Geeta Aparicio Unavailable [phone] Encounter Details Date Type Department Care Team (Latest Contact Info) Description 11/07/2017 Orders Only [facility] CLINCONV Provider, MD Florentin [address] [place] [address] Social History Tobacco Use Types Packs/Day Years Used Date Smoking Tobacco: Never Assessed Comments Unknown Sex and Gender Information Value Date Recorded Sex Assigned at Not on file Legal Sex Female 10:29 AM OUTSIDE MACHINIST SUPERVISOR Gender Identity Not on file Sexual [...] on filedocumented in this encounter Care Teams Non Food Receiving Clerk Relationship Specialty Start Date End Date Williams Escoto MD PCP - General 10/27/18 12/22/18 Williams Escoto MD PCP - General 10/03/18 10/26/18 [place] [address] [place] [phone] PCP - General Family Practice 12/23/18 [place] [address] [phone] Referring Physician Internal Medicine 04/02/22 [place] [address] [address] [place] [address] [phone] Physician Osd Clerk Orthopedic Surgery 04/20/22 documented as of this encounter
--- OUTSIDE RECORDS SUMMARY | 2025-04-12 08:58 | XMS_ITS | Clinical Summary ---
Author Organization [facility] Address [address], [facility] [address] [place] [address] Phone Care Team Providers Care Vice President Global Advertising Sales Name Role Phone Kaushik Montemayor MD Primary Care Provider [phone] Barrett Tello MD Unavailable [phone] Allergies Active Allergy Reactions Criticality Noted Date Comments Elemental Sulfur Unknown 12/18/2018 Iodine Unknown 12/18/2018 Penicillins Rash,Unknown Medium 08/23/2015 Shellfish Allergy Other (see Comments),Rash,Unknown Medium 08/23/2015 Sulfacetamide Unknown 05/27/2017 Medications acetaminophen (TYLENOL) 650 MG Tablet Controlled Release Take 650 mg by mouth. 9 Active amitriptyline (ELAVIL) 100 MG Tablet TAKE 2 TABLETS(200 MG) BY MOUTH EVERY NIGHT AT BEDTIME 9 Active lurasidone (LATUDA) 40 MG Tablet TAKE 1 TABLET NIGHTLY AT BEDTIME 9 Active metoprolol tartrate (LOPRESSOR) 25 MG Tablet TAKE 1 TABLET(25 MG) BY MOUTH TWICE DAILY 9 Active Pramipexole Dihydrochloride 0.75 MG Tablet TAKE 1 TABLET BY MOUTH EVERY NIGHT AT BEDTIME 9 Active traMADol (ULTRAM) 50 MG Tablet Indications : Chronic Pain TK 1 T PO Q 6 TO 8 HRS PRN PAIN 0 Active Ozempic, 1 MG/DOSE, 4 MG/3ML Solution Pen-injector INJECT 1 MG UNDER THE SKIN ONE DAY A WEEK FOR WEIGHT LOSS 3 Active ALPRAZolam (XANAX) 0.5 MG Tablet Take 1 tablet by mouth daily as needed for anxiety 4 Active Cholecalciferol (VITAMIN D-3 PO) Take by mouth. Active MAGNESIUM GLYCINATE PO Take by mouth. Active other by Other route. [employer] Active folic acid (FOLVITE) 1 MG TabletIndications:Ir on deficiency anemia due to chronic blood loss,B12 deficiency,Anemia due to folic acid deficiency, unspecified deficiency type TAKE 1 TABLET BY MOUTH DAILY 90 Tablet 3 4 Active FeroSul 325 (65 Fe) MG Tablet TAKE 1 TABLET BY MOUTH DAILY 90 Tablet 3 5 Active Active Problems Problem Noted Date Diagnosed Date B12 deficiency 03/30/2021 Iron deficiency anemia due to chronic blood loss 03/29/2021 Immunizations Immunization Administration Dates Next Due Covid-19, [...] 8:49 AM CDT Height 162.6 cm (5' 4) 05/06/2024 8:49 AM CDT Body Mass Index 34.93 05/06/2024 8:49 AM CDT Plan of Treatment Upcoming Encounters Date Type Department Care Team (Late st Contact Info) Description 05/05/2025 9:00 AM CDT Office Visit [facility] [address] [address] Barrett Tello MD [address] [place] [address] Health Maintenance Due Date Last Done Comments Hepatitis C Virus (HCV) Screening 1961 Pap Smear 1982 Cervical Cancer Screening (CCS) 12/20/1991 HPV/Cotest 12/20/1991 Cologuard 2006 Colonoscopy 2006 Colorectal Cancer Screening 2006 Immunochemical Fecal Occult Blood 2006 Pneumococcal Immunization (50+ years) (1 of 1 - PCV) 12/20/2011 SARS-COV-2 Immunization ( season) 2024 06/17/2023, 06/15/2022, 06/21/2021, Additional history exists Mammogram 02/25/2025 02/26/2024, 07/0 10/2023, 07/30/2022, Additional history exists Influenza Immunization (#1) 04/26/202505/27, 06/15/2022, 06/05/2021, Additional history exists DTaP/Tdap/Td Immunization Discontinued 06/15/2022 TdaP Immunization Completed 06/15/2022 Respiratory Syncytial Virus (RSV) Immunization (Adult) Completed 06/17/2023 Zoster Immunization Completed 09/17/2023, Hepatitis B Immunization Aged Out No longer eligible based on patient's age to complete this topic Human Papillomavirus (HPV) Immunization Aged Out No longer eligible based on patient's age to complete this topic Meningococcal Immunization (ACWY) Aged Out No longer eligible based on patient's age to complete this topic Rotavirus Immunization Aged Out No lo nger eligible based on patient's age to complete this topic Insurance [facility] Care Teams Vice President Global Advertising Sales Relationship Specialty Start [place] [address] [place] [address] PCP - General Family Medicine 01/17/21 [place] [address] [place] [address] Consulting Physician Oncology 01/17/21
[2025-04-12 09:06] LABS: Hematocrit 42.1 % (37.0-47.0); Hemoglobin 13.8 g/dL (12.0-15.0)
== END 2025-04-12 08:38 | disposition home or self-care (01) ==
LOC: ANHSURGERY 08:43
PROVIDERS: Anesthesiology; PCP Family Medicine; Visit Provider Orthopaedic Surgery
DX: D50.9 Iron deficiency anemia, unspecified (principal)
CPT/HCPCS: 36415; 85014; 85018

== ENCOUNTER 2025-04-14 04:11 | Day surgery (SDC) | payer BC, SELFPAY ==
[2025-04-09 10:51] VITALS: BMI 36.6
--- NOTE | 2025-04-09 10:59 | PC.NURSE ---
Report to the Outpatient Waiting Room, entrance under the green pavilion located off [facility], at time _1130_ on date _[id number]_. Planned Procedure Time: _130pm_.? Time changes happen often and if your time is changed the preop area will call you the afternoon before. - You and your visitor will be asked to self-screen and do not enter if you have any COVID symptoms. Please call surgeon if you need to reschedule. - A mask is optional within the hospital at this time. Patients may have clear liquids (water, carbonated beverages, clear teas, apple juice) until 3 hours prior to surgery with a maximum of 20 ounces. - No food from midnight until time of surgery and no smoking, or chewing tobacco (or any form of nicotine). No chewing gum, candy or mints. Take only the following medications with a SIP of water on the morning of surgery: __Alprazolam and or Tramadol if needed.___ DO NOT STOP ANY OF YOUR OTHER PRESCRIPTION MEDICATIONS PRIOR TO SURGERY EXCEPT THE FOLLOWING Hold all vitamins and supplements for 3 days per anesthesiologist. Medications to discontinue per physician Date to take last usec____[id number]__ Please no make-up, nail lithuanian, hairspray, perfume, deodorant, or body powder the day of surgery.? No jewelry (including any body piercings) or valuables the day of surgery, leave them at home.? Please take a shower or bath the night before, or the morning of, surgery with an antibacterial soap.? Wear comfortable, loose fitting clothing.? - Jewelry must be removed prior to entering the operating room.? Rings and piercings that are not removed may be cut off. - The hospital will not accept responsibility for valuables.? - Please leave all valuables, including medications, at home the day of surgery. If you are going home after surgery, a licensed production truck driver must drive you home.? - NO public transportation without another adult if you receive anesthesia. - We recommend that an adult stay with you for 24 hours following discharge. - We also recommend that you do not drive, make important decision, drink alcoholic beverages, or take any drugs that were not prescribed by your health care provider for at least 24 hours after your discharge time. Follow any additional instructions given to you from your surgeon. Telephone instructions given to __Macy___and asked if any additional questions and then verbalized understanding. Patient advised to call surgeon office or pre surgery nurse liaison [phone] if any additional questions.
[2025-04-14] VITALS (8 sets, daily range): BP systolic 94–138; BP diastolic 62–86; PULSE 94–97; RESP 10–20; TEMP 36.6–36.8; O2SAT 94–100; BMI 36.6
--- NOTE | ~2025-04-14 | XR_ITS ---
EXAMINATION: XR surgery orthopedic DATE: 04/14/2025 15:06 INDICATION: Left second costovertebral reconstruction and hammertoe repair TECHNIQUE: 3 fluoroscopic images of the left forefoot were obtained during procedure performed by Dr. Roque. Radiologist was not present for the imaging or procedure. The amount of fluoroscopy time used during this procedure was 0.9 minutes. Total DAP was 5.35 cGycm^2. COMPARISON: Left foot radiographs dated 03/30/2025 FINDINGS: Chronic postoperative change of prior second, third and fourth proximal interphalangeal arthrodesis with implant at the second proximal interphalangeal joint. Partially visualized old healed fracture deformity distal fifth metatarsal diaphysis. Postoperative change at the second toe including a shorten ing and realignment osteotomy at the neck of the second metatarsal which is fixed with a single dorsal plantar screw. There is also an axially directed fixation pin extending from the tuft of the second distal phalanx across the proximal middle phalanges and across the head of the second metatarsal. The previously seen lateral angulation at the second metatarsophalangeal joint has been reduced. No acute fracture. 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 IMPRESSION: 1. Shortening and realignment osteotomy at the neck of the second proximal phalanx with internal and percutaneous fixation as detailed above. See procedure note for further detail. Reviewed, dictated and finalized at location A. IMPRESSION: 1. Shortening and realignment osteotomy at the neck of the second proximal phal anx with internal and percutaneous fixation as detailed above. See procedure no te for further detail.
--- OUTSIDE RECORDS SUMMARY | 2025-04-14 04:15 | XMS_ITS | Encounter Summary ---
Author Organization [facility] Address [address] [place] [address] Phone Care Team Providers Care Envelope Folding Machine Adjuster Name Role Phone Kaushik Montemayor MD Primary Care Provider [phone] Barrett Tello MD Unavailable [phone] Encounter Details Date Type Department Care Team (Late st Contact Info) Description 09/15/2021 Telephone [facility] [address] [address] Barrett Tello MD [address] [place] [phone] Social History Tobacco Use Types Packs/Day [...] Visit [facility] [address] [place] [phone] Barrett Tello MD [address] [place] [address] documented as of this encounter Visit Diagnoses Not on filedocumented in this encounter Additional Health Concerns Assessment Noted Time PHQ-9 Depression Total Score: 0 06/22/20 21 9:19 AM CDT documented as of this encounter Care Teams Envelope Folding Machine Adjuster Relationship Specialty Start [place] [address] [place] [address] PCP - General Family Medicine 01/17/21 [place] [address] [place] [address] Consulting Physician Oncology 01/17/21 documented as of this encounter
--- OUTSIDE RECORDS SUMMARY | 2025-04-14 04:15 | XMS_ITS | Encounter Summary ---
Author Organization [facility] Facility Care Team Providers Care Primary Care Pediatrician Name Role Phone Williams Escoto MD Primary Care Provider Williams Escoto MD Primary Care Provider Kaushik Montemayor MD Primary Care Provider +- [phone] Vance Jack MD Unavailable [phone] Geeta Aparicio Unavailable [phone] Encounter Details Date Type Department Care Team (Latest Contact Info) Description 09/24/2018 Orders Only [facility] CLINCONV Provider, MD Florentin [address] [place] [address] Social History Tobacco Use Types Packs/Day Years Used Date Smoking Tobacco: Never Assessed Comments Unknown Sex and Gender Information Value Date Recorded Sex Assigned at Not on file Legal Sex Female 10:29 AM DIRECTOR CARDIOLOGY Gender Identity Not on file Sexual Orientation Not on file documented as of this encounter Plan of Treatment Not on file documented as of this encounter Procedures Procedure Name Priority Date/Time Associated Diagnosis Comments PROCEDURE - RESULT 09/24/2018 12 :00 AM DIRECTOR CARDIOLOGY documented in this encounter Results * PROCEDURE - RESULT (09/24/2018 12:00 AM DIRECTOR CARDIOLOGY) Narrative 09/24/2018 12:00 AM DIRECTOR CARDIOLOGY Ordered by an unspecified provider. us Historical Provider Final Res ult documented in this encounter Visit Diagnoses Not on filedocumented in this encounter Care Teams Primary Care Pediatrician Relationship Specialty Start Date End Date Williams Escoto MD PCP - General 10/27/18 12/22/18 Williams Escoto MD PCP - General 10/03/18 10/26/18 [place] [id number] [phone] PCP - General Family Practice 12/23/18 [place] [id number] [phone] Referring Physician Internal Medicine 04/02/22 [place] [address] [phone] Physician Inspector Plumbing Orthopedic Surgery 04/20/22 documented as of this encounter
--- OUTSIDE RECORDS SUMMARY | 2025-04-14 04:15 | XMS_ITS | Clinical Summary ---
Author Organization [facility] Address [address] [place] [address] Care Team Providers Care Flamer Sealer Name Role Phone Unavailable Primary Care Provider Unavailabl e Source Comments [facility],non-owned Affiliates and Associated Physician Practices is amultiple site organization consisting of ambulatory clinics and hospital sitesin [place], [place], [place] and [place]. This disclosure is being madepursuant to the Care Everywhere program and may not contain all information available regarding this patient. Last updated 18.[facility] Social History Tobacco Use Types Packs/Day Years [...] patient's age to complete this topic Insurance [facility]
--- OUTSIDE RECORDS SUMMARY | 2025-04-14 04:15 | XMS_ITS | Encounter Summary ---
Author Organization [facility] Address [address] [place] [address] Care Team Providers Care Pigeon Fancier Name Role Phone Kaushik Montemayor MD Primary Care Provider [phone] Vance Jack MD Unavailable [phone] Reason for Visit * Reason Comments Lab (SCAN) Encounter Details Date Type Department Care Team (Latest Contact Info) Description 04/12/2025 Scan HEALTH INFO SRVCS Scanned, Doc Med Group Lab (SCAN) Social History Tobacco Use Types Packs/Day Years Used Date Smoking Tobacco: Former Cigarettes 0.5 12 1 981 - 1992 Passive Smoke Exposure: Past Smokeless Tobacco: Never Comments:30 years ago Alcohol Use Standard Drinks/Week Comments Yes 0 (1 standard drink = 0.6 oz pure alcohol) Wine not often, maybe once a month AUDIT-C Answer Date Recorded [...] 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, 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 Not on file Not o n file documented as of this encounter Plan of Treatment Not on file documented as of this encounter Procedures Procedure Name Priority Date/Time Associated Diagnosis Comments OUTSIDE LAB (SCAN ORDER) 04/12/2025 documented in this encounter Results * OUTSIDE LAB (SCAN ORDER) (04/12/2025) 04/12/2025 us Doc Med Group Scanned SCANNING Final Resu lt documented in this encounter Visit Diagnoses Not on filedocumented in this encounter Additional Health Concerns Assessment Noted Time PHQ-9 Depression Total Score: 10 024 6:56 AM CDT documented as of this encounter Care Teams Pigeon Fancier Relationship Specialty Start [place] [address] [place] [address] PCP - General FAMILY PRACTICE 09/19/18 Vance Jack MD [facility]. [facility] [address] [place] [address] [address] Transit Specialist INTERVENTIONAL CARDIOLOGY 01/12/19 documented as of this encounter
--- OUTSIDE RECORDS SUMMARY | 2025-04-14 04:15 | XMS_ITS | Encounter Summary ---
Author Organization [facility] Facility Care Team Providers Care Dumb Waiter Operator Name Role Phone Williams Escoto MD Primary Care Provider Williams Escoto MD Primary Care Provider Kaushik Montemayor MD Primary Care Provider [phone]- [phone] Vance Jack MD Unavailable [phone] Geeta Aparicio Unavailable [phone] Encounter Details Date Type Department Care Team (Latest Contact Info) Description 10/01/2018 Orders Only MMG CLINCONV Provider, MD Florentin [address] [place] [address] Social History Tobacco Use Types Packs/Day Years Used Date Smoking Tobacco: Never Assessed Comments Unknown Sex and Gender Information Value Date Recorded Sex Assigned at Not on file Legal Sex Female 10:29 AM RECONCILIATION COORDINATOR Gender Identity Not on file Sexual Orientation Not on file documented as of this encounter Plan of Treatment Not on file documented as of this encounter Procedures Procedure Name Priority Date/Time Associated Diagnosis Comments PROCEDURE - RESULT 10/01/2018 12 :00 AM RECONCILIATION COORDINATOR documented in this encounter Results * PROCEDURE - RESULT (10/01/2018 12:00 AM RECONCILIATION COORDINATOR) Narrative 10/01/2018 12:00 AM RECONCILIATION COORDINATOR Ordered by an unspecified provider. us Historical Provider Final Res ult documented in this encounter Visit Diagnoses Not on filedocumented in this encounter Care Teams Dumb Waiter Operator Relationship Specialty Start Date End Date Williams Escoto MD PCP - General 10/27/18 12/22/18 Williams Escoto MD PCP - General 10/03/18 10/26/18 [place] [address] [employer] [address] [phone] PCP - General Family Practice 12/23/18 [place] [address] [phone] Referring Physician Internal Medicine 04/02/22 [place] [address] [address] [phone] Physician Curriculum And Assessment Coordinator Orthopedic Surgery 04/20/22 documented as of this encounter
--- OUTSIDE RECORDS SUMMARY | 2025-04-14 04:15 | XMS_ITS | Encounter Summary ---
Author Organization [facility] Facility Care Team Providers Care Expander Machine Operator Name Role Phone Williams Escoto MD Primary Care Provider Williams Escoto MD Primary Care Provider Kaushik Montemayor MD Primary Care Provider [phone]- [phone] Vance Jack MD Unavailable [phone] Geeta Aparicio Unavailable [phone] Encounter Details Date Type Department Care Team (Latest Contact Info) Description 12/06/2017 Orders Only MMG CLINCONV Provider, MD Florentin [address] [place] [address] Social History Tobacco Use Types Packs/Day Years Used Date Smoking Tobacco: Never Assessed Comments Unknown Sex and Gender Information Value Date Recorded Sex Assigned at Not on file Legal Sex Female 10:29 AM POLISHER IMPLANT Gender Identity Not on file Sexual Orientation [...] on filedocumented in this encounter Care Teams Expander Machine Operator Relationship Specialty Start Date End Date Williams Escoto MD PCP - General 10/27/18 12/22/18 Williams Escoto MD PCP - General 10/03/18 10/26/18 [place] [address] [place] [address] [phone] PCP - General Family Practice 12/23/18 [place] [address] [phone] Referring Physician Internal Medicine 04/02/22 [place] [address] [address] [place] [phone] Physician Research Archaeologist Orthopedic Surgery 04/20/22 documented as of this encounter
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
--- OUTSIDE RECORDS SUMMARY | 2025-04-14 04:15 | XMS_ITS | Encounter Summary ---
Author Organization [facility] Address [address] [place] [address] Care Team Providers Care Human Anatomy Teacher Name Role Phone Kaushik Montemayor MD Primary Care Provider [phone] Vance Jack MD Unavailable Encounter Details Date Type Department Care Team (Late st Contact Info) Description 03/24/2024 [employer] Message Enc [facility] Medical [facility] [address] [place] [address] Jose Enamoraod PA [address] [place] [address] Thank you! 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 [address] [place] [address] [place] Etch Operator Semiconductor Wafers INTERVENTIONAL CARDIOLOGY 01/12/19 documented as of this encounter
--- OUTSIDE RECORDS SUMMARY | 2025-04-14 04:15 | XMS_ITS | Encounter Summary ---
Author Organization [facility] Facility Care Team Providers Care Patient Admitting Clerk Name Role Phone Williams Escoto MD Primary Care Provider Williams Escoto MD Primary Care Provider Kaushik Montemayor MD Primary Care Provider +- [phone] Vance Jack MD Unavailable [phone] Geeta Aparicio Unavailable [phone] Encounter Details Date Type Department Care Team (Latest Contact Info) Description 11/21/2017 Orders Only MMG CLINCONV Provider, MD Florentin [address] [place] [address] Social History Tobacco Use Types Packs/Day Years Used Date Smoking Tobacco: Never Assessed Comments Unknown Sex and Gender Information Value Date Recorded Sex Assigned at Not on file Legal Sex Female 10:29 AM TAX ECONOMIST Gender Identity Not on file Sexual Orientation [...] on filedocumented in this encounter Care Teams Patient Admitting Clerk Relationship Specialty Start Date End Date Williams Escoto MD PCP - General 10/27/18 12/22/18 Williams Escoto MD PCP - General 10/03/18 10/26/18 [place] [address] [place] [phone] PCP - General Family Practice 12/23/18 [place] [address] [phone] Referring Physician Internal Medicine 04/02/22 [place] [address] [address] [place] [address] [phone] Physician Supervisor Powdered Sugar Orthopedic Surgery 04/20/22 documented as of this encounter
--- OUTSIDE RECORDS SUMMARY | 2025-04-14 04:15 | XMS_ITS | Encounter Summary ---
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 No / Unsure 07/17/2022 10:29 AM CAREER COACH documented as of this encounter Plan of Treatment Not on file documented as of this encounter Visit Diagnoses Not on filedocumented in this encounter Additional Health Concerns Assessment Noted Time PHQ-9 Depression Total Score: 0 12/05/19 22 8:05 AM CDT documented as of this encounter Care Teams Neon Electrician Relationship Specialty Start [place] [address] [place] [address] PCP - General FAMILY PRACTICE 09/19/18 Vance Jack MD [facility] [address] [place] [address] Susan Eyewear Manufacturing Tech INTERVENTIONAL CARDIOLOGY 01/12/19 documented as of this encounter
--- OUTSIDE RECORDS SUMMARY | 2025-04-14 04:15 | XMS_ITS | Encounter Summary ---
Author Organization [facility] Facility Care Team Providers Care Patient Observation Assistant Name Role Phone Williams Escoto MD Primary Care Provider Williams Escoto MD Primary Care Provider Kaushik Montemayor MD Primary Care Provider +- [phone] Vance Jack MD Unavailable [phone] Geeta Aparicio Unavailable [phone] Encounter Details Date Type Department Care Team (Latest Contact Info) Description 10/10/2016 Orders Only [facility] CLIN[facility]V Provider, MD Florentin [address] [place] [address] Social History Tobacco Use Types Packs/Day Years Used Date Smoking Tobacco: Never Assessed Comments Unknown Sex and Gender Information Value Date Recorded Sex Assigned at Not on file Legal Sex Female 10:29 AM PROFESSIONAL ORGANIZER Gender Identity Not on file Sexual Orientation Not on file documented as of this encounter Plan of Treatment Not on file documented as of this encounter Procedures Procedure Name Priority Date/Time Associated Diagnosis Comments PROCEDURE - RESULT 10/10/2016 12 :00 AM PROFESSIONAL ORGANIZER documented in this encounter Results * PROCEDURE - RESULT (10/10/2016 12:00 AM PROFESSIONAL ORGANIZER) Narrative 10/10/2016 12:00 AM PROFESSIONAL ORGANIZER Ordered by an unspecified provider. us Historical Provider Final Res ult documented in this encounter Visit Diagnoses Not on filedocumented in this encounter Care Teams Patient Observation Assistant Relationship Specialty Start Date End Date Williams Escoto MD PCP - General 10/27/18 12/22/18 Williams Escoto MD PCP - General 10/03/18 10/26/18 [place] [address] [facility] [address] [phone] PCP - General Family Practice 12/23/18 [place] [address] [facility] [address] [phone] Referring Physician Internal Medicine 04/02/22 [place] [address] [facility] [address] [phone] Physician Entry Level Lab Technician Orthopedic Surgery 04/20/22 documented as of this encounter
--- OUTSIDE RECORDS SUMMARY | 2025-04-14 04:15 | XMS_ITS | Encounter Summary ---
Author Organization [facility] Facility Care Team Providers Care Circular Tank Cooper Name Role Phone Williams Escoto MD Primary Care Provider Williams Escoto MD Primary Care Provider Kaushik Montemayor MD Primary Care Provider +- [phone] Vance Jack MD Unavailable [phone] Geeta Aparicio Unavailable [phone] Encounter Details Date Type Department Care Team (Latest Contact Info) Description 12/16/2017 Orders Only [facility] CLINCONV Provider, MD Florentin [address] [place] [address] Social History Tobacco Use Types Packs/Day Years Used Date Smoking Tobacco: Never Assessed Comments Unknown Sex and Gender Information Value Date Recorded Sex Assigned at Not on file Legal Sex Female 10:29 AM ANALYTICAL STATISTICIAN Gender Identity Not on file Sexual Orientation [...] on filedocumented in this encounter Care Teams Circular Tank Cooper Relationship Specialty Start Date End Date Williams Escoto MD PCP - General 10/27/18 12/22/18 Williams Escoto MD PCP - General 10/03/18 10/26/18 [place] [address] [place] [address] [phone] PCP - General Family Practice 12/23/18 [place] [address] [phone] Referring Physician Internal Medicine 04/02/22 [place] [address] [employer] JOHN [address] [place] [address] [phone] Physician Unix Consultant Orthopedic Surgery 04/20/22 documented as of this encounter
--- OUTSIDE RECORDS SUMMARY | 2025-04-14 04:15 | XMS_ITS | Encounter Summary ---
Author Organization [facility] Facility Care Team Providers Care Sales Intern Name Role Phone Williams Escoto MD Primary Care Provider Williams Escoto MD Primary Care Provider Kaushik Montemayor MD Primary Care Provider +- [phone] Vance Jack MD Unavailable [phone] Geeta Aparicio Unavailable [phone] Encounter Details Date Type Department Care Team (Latest Contact Info) Description 12/23/2017 Orders Only [facility] CLINCONV Provider, MD Florentin [address] [place] [address] Social History Tobacco Use Types Packs/Day Years Used Date Smoking Tobacco: Never Assessed Comments Unknown Sex and Gender Information Value Date Recorded Sex Assigned at Not on file Legal Sex Female 10:29 AM BOILERMAKER FITTER Gender Identity Not on file Sexual Orientation [...] on filedocumented in this encounter Care Teams Sales Intern Relationship Specialty Start Date End Date Williams Escoto MD PCP - General 10/27/18 12/22/18 Williams Escoto MD PCP - General 10/03/18 10/26/18 [place] [address] JOHN [address] [place] [address] [id number] PCP - General Family Practice 12/23/18 [place] [address] [place], [place] [phone] Referring Physician Internal Medicine 04/02/22 [place] [address] JOHN [address] [place] [address] [phone] Physician Account Manager B2B Orthopedic Surgery 04/20/22 documented as of this encounter
--- OUTSIDE RECORDS SUMMARY | 2025-04-14 04:15 | XMS_ITS | Encounter Summary ---
Author Organization [facility] Facility Care Team Providers Care Resource Paraprofessional Name Role Phone Williams Escoto MD Primary Care Provider Williams Escoto MD Primary Care Provider Kaushik Montemayor MD Primary Care Provider +- [phone] Vance Jack MD Unavailable [phone] Geeta Aparicio Unavailable [phone] Encounter Details Date Type Department Care Team (Latest Contact Info) Description 10/25/2017 Orders Only [facility] CLINCONV Provider, MD Florentin [address] [place] [address] Social History Tobacco Use Types Packs/Day Years Used Date Smoking Tobacco: Never Assessed Comments Unknown Sex and Gender Information Value Date Recorded Sex Assigned at Not on file Legal Sex Female 10:29 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 us Historical Provider Final Res ult documented in this encounter Visit Diagnoses Not on filedocumented in this encounter Care Teams Resource Paraprofessional Relationship Specialty Start Date End Date Williams Escoto MD PCP - General 10/27/18 12/22/18 Williams Escoto MD PCP - General 10/03/18 10/26/18 [place] [address] [id number] PCP - General Family Practice 12/23/18 [place] [address] [phone] Referring Physician Internal Medicine 04/02/22 [place] [address] [phone] Physician Senior Licensing Manager Orthopedic Surgery 04/20/22 documented as of this encounter
--- OUTSIDE RECORDS SUMMARY | 2025-04-14 04:15 | XMS_ITS | Encounter Summary ---
Author Organization [facility] Address [address] [place] [address] Phone Care Team Providers Care Behavioral Health Counselor Name Role Phone Kaushik Montemayor MD Primary Care Provider [phone] Barrett Tello MD Unavailable [phone] Reason for Visit * Reason Comments Medication Refill Encounter Details Date Type Department Care Team (Late st Contact Info) Description 08/17/2023 Refill [facility] [address] [place] [address] Barrett Tello MD [address] [place] [address] Medication Refill Social History Tobacco [...] request from pharmacy. Please fill if appropriate. 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 documented in this encounter Plan of Treatment Upcoming Encounters Date Type Department Care Team (Late st Contact Info) Description 05/05/2025 9:00 AM CDT Office Visit [facility] [address] [phone] Barrett Tello MD [address] [place] [phone] documented as of this encounter Visit Diagnoses [...] documented as of this encounter Care Teams Behavioral Health Counselor Relationship Specialty Start [place] [address] [place] [address] PCP - General Family Medicine 01/17/21 [place] [address] [place] [address] Consulting Physician Oncology 01/17/21 documented as of this encounter
--- OUTSIDE RECORDS SUMMARY | 2025-04-14 04:15 | XMS_ITS | Encounter Summary ---
Author Organization [facility] Address [address] [place] [address] Care Team Providers Care Criminal Records Technician Name Role Phone Kaushik Montemayor MD Primary Care Provider [phone] Vance Jack MD Unavailable [phone] Encounter Details Date Type Department Care Team (Late st Contact Info) Description 03/22/2025 Results Follow-Up [facility] Family & Internal Medicine [address] [address] Kaushik Montemayor MD [address] [place] [address] MG SCREENING W HA SELF Social History Tobacco Use Types Packs/Day Years [...] 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 * Denise Parr RN - 03/23/2025 8:50 AM CDT LVM for pt to call office. * Kaushik Montemayor MD - 03/22/2025 8:52 PM CDT No evidence of malignancy documented in this encounter Plan of Treatment Not on file documented as of this encounter Visit Diagnoses Not on filedocumented in this encounter Additional Health Concerns Assessment Noted Time PHQ-9 Depression Total Score: 10 024 6:56 AM CDT documented as of this encounter Care Teams Criminal Records Technician Relationship Specialty Start [place] [address] [place] [address] PCP - General FAMILY PRACTICE 09/19/18 Vance Jack MD [facility] [address] [place] [address] Tiona Production Posting Clerk INTERVENTIONAL CARDIOLOGY 01/12/19 documented as of this encounter
--- OUTSIDE RECORDS SUMMARY | 2025-04-14 04:15 | XMS_ITS | Encounter Summary ---
Author Organization [facility] Facility Care Team Providers Care Machine Technician Name Role Phone Williams Escoto MD Primary Care Provider Williams Escoto MD Primary Care Provider Kaushik Montemayor MD Primary Care Provider [phone]- [phone] Vance Jack MD Unavailable [phone] Geeta Aparicio Unavailable [phone] Encounter Details Date Type Department Care Team (Latest Contact Info) Description 11/07/2017 Orders Only [facility] CLINCON[facility] Provider, MD Florentin [address] [place] [address] Social History Tobacco Use Types Packs/Day Years Used Date Smoking Tobacco: Never Assessed Comments Unknown Sex and Gender Information Value Date Recorded Sex Assigned at Not on file Legal 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 Gender Identity Not on file Sexual [...] on filedocumented in this encounter Care Teams Machine Technician Relationship Specialty Start Date End Date Williams Escoto MD PCP - General 10/27/18 12/22/18 Williams Escoto MD PCP - General 10/03/18 10/26/18 [place] [address] [place] [address] [id number] PCP - General Family Practice 12/23/18 [place] [address] [phone] Referring Physician Internal Medicine 04/02/22 [place] [address] [address] [address] [place] [address] [id number] Physician Extract Mixer Orthopedic Surgery 04/20/22 documented as of this encounter
--- OUTSIDE RECORDS SUMMARY | 2025-04-14 04:15 | XMS_ITS | Encounter Summary ---
Author Organization [facility] Facility Care Team Providers Care Supervisor Records Change Name Role Phone Williams Escoto MD Primary Care Provider Williams Escoto MD Primary Care Provider Kaushik Montemayor MD Primary Care Provider [phone]- [phone] Vance Jack MD Unavailable [phone] Geeta Aparicio Unavailable [phone] Encounter Details Date Type Department Care Team (Latest Contact Info) Description 12/09/2017 Orders Only [facility] CLINCON[facility] Provider, MD Florentin [address] [place] [address] Social History Tobacco Use Types Packs/Day Years Used Date Smoking Tobacco: Never Assessed Comments Unknown Sex and Gender Information Value Date Recorded Sex Assigned at Not on file Legal Sex Female 10:29 AM 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 Gender Identity Not on file Sexual Orientation [...] filedocumented in this encounter Care Teams Supervisor Records Change Relationship Specialty Start Date End Date Williams Escoto MD PCP - General 10/27/18 12/22/18 Williams Escoto MD PCP - General 10/03/18 10/26/18 [place] [address] [place] [address] [id number] PCP - General Family Practice 12/23/18 [place] [address] [phone] Referring Physician Internal Medicine 04/02/22 [place] [address] [employer] [address] [place] [address] [phone] Physician Hydrogeology Professor Orthopedic Surgery 04/20/22 documented as of this encounter
--- OUTSIDE RECORDS SUMMARY | 2025-04-14 04:15 | XMS_ITS | Clinical Summary ---
Author Organization [facility] Address [address] [place] [address] Care Team Providers Care Development Mgr Name Role Phone Kaushik Montemayor MD Primary Care Provider [phone] Vance Jack MD Unavailable [phone] Geeta Aparicio Unavailable [phone] Allergies Active Allergy Reactions Criticality Noted Date [...] mouth nightly 0 09/19/19 19 Active BD LUER-YVTETE SYRINGE 3 mL 23 x 1 syringe [...] (04/02/2022): Added automatically from request for surgery [id number] Rotator cuff impingement syndrome of right shoul [...] often do you attend chur ch or adventist services? 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 Gender Identity Not on file Sexual Orientation [...] this topic Medical Devices Implanted Type Area Eap Consultant Device Identifier Shelf Expiration Date Model / Serial / Lot Knee Components Bilater al: Knee Hip Left: Hip [employer] G7 52mm Limit Hole Hip E Hemisphere Shell Acetabular Pps [id number] - [id number] Implanted:Qty: 1 on 04/19/2022 by Williams Escoto MD at [facility] Right: Hip [employer] [id number] 02/22/2032 [id number] / / [id number] [employer] Trilogy 6.5mm 30mm Self Tap Acetabular Cortical Screw Bone [id number] - [id number] Implanted:Qty: 1 on 04/19/2022 by Williams Escoto MD at [facility] Right: Hip [employer] [id number] 03/15/2032 [id number] / / [id number] [employer] Echo Bi-Metric 9mm 125mm Noncollar Reduce Proximal Profile Press [id number] - [id number] Implanted:Qty: 1 on 04/19/2022 by Williams Escoto MD at [facility] Right: Hip [employer] [id number] 08/03/2029 [id number] / / [id number] [employer] Liner Hip G7 Longevity High Wall 32mm E [id number] - [id number] Implanted:Qty: 1 on 04/19/2022 by Williams Escoto MD at [facility] Right: Hip [employer] [id number] 07/25/[id number] / / [id number] [employer] G7 32mm Type 1 Modular Hip Acetabular +3mm Offset Head Femoral [id number] - [id number] Implanted:Qty: 1 on 04/19/2022 by Williams Escoto MD at [facility] Right: Hip [employer] 06/08/2031 [id number] / / [id number] [place] [address] [employer] Advance Directives For more information, please contact: [phone] * Full Code (Latest Code Status on File) Date Activated Date Inactivated Comments 04/19/2022 4:00 PM 04/21/2022 4:29 PM Care Teams Development Mgr Relationship Specialty Start [place] [address] [address] PCP - General Family Practice 12/23/18 [place] [address] [address] Referring Physician Internal Medicine 04/02/22 [place] [address] [facility] [address] [address] Physician Resident Services Manager Orthopedic Surgery 04/20/22
--- OUTSIDE RECORDS SUMMARY | 2025-04-14 04:15 | XMS_ITS | Clinical Summary ---
Author Organization [facility] Address [address], [facility] [address] [place] [address] Phone Care Team Providers Care Bronze Chaser Name Role Phone Kaushik Montemayor MD Primary Care Provider [phone] Barrett Tello MD Unavailable [phone] Allergies Active Allergy Reactions Criticality Noted Date [...] by mouth. Active other by Other route. DataPad Active folic acid (FOLVITE) 1 MG TabletIndications:Ir [...] CDT Office Visit [facility] [address] [address] Barrett Tello MD [address] [place] [phone] Health Maintenance Due Date Last Done [...] patient's age to complete [place] [address] [facility] Care Teams Bronze Chaser Relationship Specialty Start [place] [address] [place] [address] PCP - General Family Medicine 01/17/21 [place] [address] [place] [address] Consulting Physician Oncology 01/17/21
--- OUTSIDE RECORDS SUMMARY | 2025-04-14 04:15 | XMS_ITS | Encounter Summary ---
Author Organization [facility] Facility Care Team Providers Care Xerox Machine Operator Name Role Phone Williams Escoto MD Primary Care Provider Williams Escoto MD Primary Care Provider Kaushik Montemayor MD Primary Care Provider +- [phone] Vance Jack MD Unavailable [phone] Geeta Aparicio Unavailable [phone] Encounter Details Date Type Department Care Team (Latest Contact Info) Description 11/18/2017 Orders Only [facility] CLINCONV Provider, MD Florentin [address] [place] [address] Social History Tobacco Use Types Packs/Day Years Used Date Smoking Tobacco: Never Assessed Comments Unknown Sex and Gender Information Value Date Recorded Sex Assigned at Not on file Legal 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 Gender Identity Not on file Sexual Orientation [...] on filedocumented in this encounter Care Teams Xerox Machine Operator Relationship Specialty Start Date End Date Williams Escoto MD PCP - General 10/27/18 12/22/18 Williams Escoto MD PCP - General 10/03/18 10/26/18 [place] [address] [place] [address] [id number] PCP - General Family Practice 12/23/18 [place] [address] [phone] Referring Physician Internal Medicine 04/02/22 [place] [address] [employer] [address] [place] [address] [phone] Physician System Support Technician Orthopedic Surgery 04/20/22 documented as of this encounter
--- NOTE | 2025-04-14 11:42 | WPDHPUPDATE1 ---
History and Physical Update Update Date/Time: 04/14/25 11:42 History and Physical has been reviewed, including an updated exam of the patient. There are NO changes in the patient's condition. Risks, benefits, and alternatives have been discussed and questions answered. Patient agrees to proceed with procedure.
[2025-04-14] MEDS: ACETAMINOPHEN 500 MG TABLET 1000 MG PO (12:08)
[2025-04-14] MEDS: KETOROLAC 15 MG/ML VIAL (*BKC) IV PUSH (12:08)
[2025-04-14] MEDS: LACTATED RINGERS 1,000 ML 30 ML IV CONT ×2 (12:08→15:05)
--- NOTE | 2025-04-14 12:48 | WPDANESEPPF ---
Anes - Initial Pre Proc Eval Procedure: Operation Date: 04/14/25 13:30 Proposed Procedures p Left Second Crossover Toe Reconstruction, Hammer Toe Repair - Jared Roque MD Date/Time: 04/14/25 12:48 Surgeon: Jared Roque MD Pre Op Diagnosis: left 2nd crossover toe,hammer toe Patient Data Age: 64 Gender: F Height: 1.63 m Weight: 96.8 kg Last Vital Signs Temp 36.8 C 04/14/25 12:06 Pulse 96 04/14/25 12:06 BP 134/62 04/14/25 12:06 Pulse Ox 100 04/14/25 12:06 O2 Del Method Room Air 04/14/25 12:06 Allergies Allergy/AdvReac Type Severity Reaction Status Date / Time shellfish derived Allergy Severe Swelling Verified 04/09/25 10:47 of Lip/Tongue/Throat Penicillins Allergy Intermediate Hives Verified 04/09/25 10:47 Sulfa (Sulfonamide Allergy Unknown Rash Verified 04/09/25 10:47 Antibiotics) Shrimp Allergy Severe SWELLING, Uncoded 04/09/25 10:47 RASH Contrast Media Allergy Intermediate Rash Uncoded 04/09/25 10:47 Home Medications ?Medication ?Instructions ?Recorded ?Confirmed ?Type amitriptyline 100 mg tablet 300 mg PO QHS 03/07/21 04/09/25 History lurasidone 40 mg tablet (Latuda) 40 mg PO QHS 03/07/21 04/09/25 History pramipexole 0.75 mg tablet 0.75 mg PO QHS 03/07/21 04/09/25 History tramadol 50 mg tablet 50 mg PO Q6H PRN Pain 03/07/21 04/09/25 History folic acid 1 mg tablet 1 mg PO DAILY 12/04/21 04/09/25 History alprazolam 0.25 mg tablet (Xanax) 0.5 mg PO DAILY PRN anxiety 11/16/24 04/09/25 History cyanocobalamin (vitamin B-12) 1,000 mcg IM MONTHLY 11/16/24 04/09/25 History 1,000 mcg/mL injection solution ferrous sulfate 325 mg (65 mg 325 mg PO DAILY 11/16/24 04/09/25 History iron) tablet (Katherine-Time) magnesium glycinate 100 mg (as 270 mg PO HS 11/16/24 04/09/25 History glycinate) tablet (Mag Glycinate) vitamin D3 250 mcg (10,000 1 cap PO DAILY 11/16/24 04/09/25 History unit)-vitamin K2 45 mcg capsule hpqhfeeabjyf-bhbtimse-cysoke tablet 1 tablet PO DAILY 04/09/25 04/09/25 History Patient hx anesthesia problems: post op nausea/vomiting Family hx anesthesia problems: none Results Review: All pre-operative results and documents have been reviewed as part of the pre-operative evaluation. [facility] Past Medical History Medical History (Updated 04/13/25 @ 14:36 by Hermes Carlos DO) SVT (supraventricular tachycardia) Acquired claw toe of left foot Acquired hammertoe of right foot Closed fracture of fifth metatarsal bone of left foot Encounter for postoperative care PONV (postoperative nausea and vomiting) Hx of supraventricular tachycardia Wears glasses Depression Acquired hammertoe of left foot Morbid obesity Bipolar 1 disorder, depressed Arthritis Anxiety Anemia Surgical History Surgical History (Updated 04/13/25 @ 14:36 by Hermes Carlos DO) History of x2 History of carpal tunnel release left History of gastric bypass 2005 [id number] History of intestinal surgery bowel obstruction x2 H/O foot surgery Left 2nd hammertoe correction 06/23/15 Dr. Roque H/O hernia repair umbilical hernia repair History of cholecystectomy History of knee surgery Right TKA 2019 Dr. Escoto Left TKA Poly replacement 2020 Dr. Escoto History of hip surgery Left TAISHA 2018 Dr. Escoto Right TAISHA Family History Family History Father Family history of Alzheimer's disease Other Cerebrovascular accident Depression Family history of Parkinson's disease Family history of arthritis Family history of malignant neoplasm Family history of mental disorder Gallbladder cancer Social History Social History Social History: caffeine use Years smoked: 17 Smoking status: Former smoker Tobacco type: cigarettes Smoking end date: 04/09/93 Additional smoking assessment comments: QUIT 1990 Alcohol intake: current Drinks per week: 1 Substance use: never Substance use type: does not use Living arrangements: with family Occupation/Education: retired Gender identity (if verbalized by the patient): Female Spiritual care concerns: No Anes - Eval Final PreProcedure Day of Procedure 04/14/25 12:48 Patient weight: obese Heart: regular rate and rhythm Lungs: clear to auscultation Airway: Mallampati scale class II Neurological: alert and oriented Last oral intake: >/= 8 hours ASA classification: III Emergent: no Anesthetic plan: proceed Anesthesia type and monitoring: general LMA and standard monitoring Results Review: All pre-operative results and documents have been reviewed as part of the pre-operative evaluation. Informed Consent: The patient's anesthetic plan and its attendant risks and benefits were discussed with the patient/family/POA. Questions were solicited and answers provided to the satisfaction of the patient/family/POA.
[2025-04-14] MEDS: ceFAZolin 2 GM in SODIUM CHLORIDE 0.9% IV 50 ML 100 ML IVPB (13:08)
[2025-04-14] MEDS: BUPivacaine HCL 0.5% 10 ML AMP INFILTRATE (13:41)
--- NOTE | 2025-04-14 15:11 | P.OP_ITS ---
Procedure Note - Detailed Date of Procedure 04/14/25 Pre-op Diagnosis left 2nd crossover toe,hammer toe Post-op Diagnosis Same Procedure Performed Left 2nd crossover toe repair with soft tissue reconstruction, 2nd metatarsal osteotomy. 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 Previous hammertoe correction with PIP arthrodesis. Previous metatarsophalangeal release with recurrence of deformity. Unable to wear shoes. Presents now for operative treatment. Description of Procedure Patient identified in the preoperative holding. Informed consent given. Operative extremity marked. Patient received intravenous antibiotics. Patient brought to the operating room where underwent general anesthetic by anesthesia team. Positioned supine on operating room table. Time-out performed confirming the patient, site of the surgery and the plan. Left foot prepped and draped usual sterile surgical fashion and a ChloraPrep skin solution. Left foot and ankle exsanguinated and calf tourniquet inflated to 250 mmHg. Dorsal longitudinal incision made over the 2nd toe metatarsophalangeal joint with 15 blade knife. Hemostasis controlled electrocautery. Dorsal capsulotomy performed. Medial and lateral collateral ligaments released off of the proximal phalanx. Contracted lateral capsule then released. Metatarsal head and proxi mal phalangeal articular surface noted to have moderate degenerative changes. Osteotomy then performed from the articular surface of the metatarsal proceeding proximally. This allowed the plantar aspect to migrate proximally 3 mm. This was pinned in checked with image intensification. Fixation achieved with a 2.5 mm twist off screw. Alignment checked with image intensification. Wound thoroughly irrigated. Capsule closed with 3 O Monocryl interrupted suture. The plantar plate was noted to be completely degenerative and non-existent. Decision was made to perform flexor tendon reconstruction of the plantar plate. The flexor tendon was released distally with a 15 blade knife percutaneously from the distal phalanx. This was brought up through the proximal wound. 2.5 mm drill hole placed in the base the proximal phalanx. The tendon was then passed through the drill hole and secured with a 3.0 mm PushLock anchor. Toe was not corrected position when the tendon was passed and fixed. 0.062 in K- wire was then used to hold the toe in the correct position at the metatarsophalangeal joint. Position was checked with image intensification. Wound irrigated and subcutaneous tissue repaired with 3-0 Monocryl interrupted suture. Skin repaired with 4-0 nylon interrupted suture. Tourniquet released and good capillary refill in the toe was noted. Sterile dressing applied. Patient then awoke from anesthesia, extubated and taken to recovery room stable condition. All sponge needle and instrument counts correct at the end of the case. Implants Arthrex 2.5 mm twisted screw x 13 mm, 3.0 mm x 8 mm PushLock Estimated Blood Loss 5 Tourniquet Time Total Tourniquet Time: 70 Drains No Packing No Pathology None sent Complications None Condition Stable Disposition PACU [facility] Billing Surgery - Charge Forward: Surgery Billing ([id number], [id number])
[2025-04-14] MEDS: fentaNYL CITRATE INJ (*CRX) 100 MCG/2 ML VIAL 25 MCG IV PUSH ×4 (15:16→15:48)
== END 2025-04-14 16:55 | disposition home or self-care (01) ==
PROVIDERS: PCP Family Medicine; Visit Provider Orthopaedic Surgery
PROC: (CPT 28308; principal; 2025-04-14 13:30)
DX: M20.42 Other hammer toe(s) (acquired), left foot (principal); F41.9 Anxiety disorder, unspecified; D64.9 Anemia, unspecified; I47.10 Supraventricular tachycardia, unspecified; F31.9 Bipolar disorder, unspecified; M19.90 Unspecified osteoarthritis, unspecified site; E66.9 Obesity, unspecified; Z68.36 Body mass index [BMI] 36.0-36.9, adult; Z79.891 Long term (current) use of opiate analgesic; Z79.85 Long-term (current) use of injectable non-insulin antidiabetic drugs; Z98.84 Bariatric surgery status; Z90.49 Acquired absence of other specified parts of digestive tract; Z87.891 Personal history of nicotine dependence; Z80.0 Family history of malignant neoplasm of digestive organs; Z98.890 Other specified postprocedural states
CPT/HCPCS: 28308; 28313; 99199; J0690; A9270; J1100; J1885; J2003; J2250; J2405; J2704; J3010; J7120